=== PATIENT | female | born 1940 | race Caucasian/White ===

== ENCOUNTER 2017-02-05 08:22 | Inpatient (IN) | payer MEDICARE ==
[2017-02-05 09:45] LABS: #Eosinphils 0.3 thou/uL (0.0-0.7); #Lymphocytes 1.8 thou/uL (1.20-3.40); #Monocytes 0.5 thou/uL (0.11-0.59); #Neutrophils 7.5 thou/uL (1.40-6.50); %Basophils 0.4 % (0.0-1.0); %Eosinophils 3.4 % (0.0-10.0); %Lymphocytes 17.7 % (21.0-51.0); %Monocytes 5.2 % (0.0-10.0); Hematocrit 43.3 % (36.0-47.0); Mean Platelet Volume 6.1 fL (7.4-10.4); Red Blood Cell (RBC) Count 4.82 mill/uL (4.20-5.40); White Blood Cell (WBC) Count 10.2 thou/uL (4.8-10.8)
[2017-02-05 09:56] LABS: PTT 40.2 SEC (22.9-36.1); Prothrombin Time 29.3 SEC (12.0-14.7)
[2017-02-05 10:06] LABS: Anion Gap 13 mmol/L (10-20); BUN (Urea Nitrogen) 10 mg/dL (9.8-20.1); Calc. Creatinine Clearance 70 mL/min (70-130); Calcium 9.9 mg/dL (7.8-10.44); Carbon Dioxide 28 mmol/L (23-31); Chloride 101 mmol/L (98-107); Estimated GFR-MDRD 80
[2017-02-05] MEDS ORDERED: Diprivan 0 ML ONE (10:22)
[2017-02-05] MEDS ORDERED: Heparin 10,000 UNITS/1 ML VIAL ONE ×2 (10:40→11:21)
[2017-02-05] MEDS ORDERED: Promethazine HCl 25 MG/ML VIAL ONE (10:56)
[2017-02-05] MEDS ORDERED: Fentanyl 100 MCG/2 ML VIAL ONE (10:56)
[2017-02-05] MEDS ORDERED: Phenylephrine 10 MG/NS 250 ML 250 ML ONE (10:56)
[2017-02-05] MEDS ORDERED: Propofol 200 MG/20 ML VIAL ONE (11:08)
[2017-02-05] MEDS ORDERED: Ondansetron HCl/PF 4 MG/2 ML Vial ONE (11:08)
[2017-02-05] MEDS ORDERED: Dexamethasone 20 MG/5 ML VIAL ONE (11:08)
[2017-02-05] MEDS ORDERED: Protamine Sulfate 50 MG/5 ML VIAL ONE (11:21)
[2017-02-05] MEDS ORDERED: Furosemide 40 MG/4 ML VIAL ONE (11:21)
[2017-02-05] MEDS ORDERED: Midazolam HCl 2 mg/2 ml Vial ONE (11:50)
[2017-02-05] MEDS ORDERED: Isoproterenol 0.2 MG/1 ML AMP ONE (11:52)
[2017-02-05] MEDS ORDERED: Promethazine HCl 25 MG/ML VIAL SLOW IVP PRN (13:26)
[2017-02-05] MEDS ORDERED: Morphine Sulfate 2 MG/ML SYRINGE SLOW IVP PRN (13:26)
[2017-02-05] MEDS ORDERED: Ondansetron HCl/PF 4 MG/2 ML Vial IVP PRN ×2 (13:26→14:24)
[2017-02-05] MEDS ORDERED: Meperidine HCl/PF 25 MG/ML VIAL SLOW IVP PRN (13:26)
[2017-02-05] MEDS ORDERED: Nitroglycerin 0.4 MG TAB (25 Tab Bottle) ONE (13:48)
[2017-02-05] MEDS ORDERED: Amiodarone HCl 450 MG, Admixture Fee 1 EACH in Dextrose 5% in Water 250 ML IVPB SCH ×3 (14:00)
[2017-02-05] MEDS ORDERED: Bisacodyl 10 MG SUPP PR PRN (14:24)
[2017-02-05] MEDS ORDERED: diphenhydrAMINE HCl 25 MG CAP PO PRN (14:24)
[2017-02-05] MEDS ORDERED: Silver Sulfadiazine 1% Cream 50 GM JAR TOP PRN (14:24)
[2017-02-05] MEDS ORDERED: Mag-Al 1200 mg/1200 mg/30 ML UDCUP PO PRN (14:24)
[2017-02-05] MEDS ORDERED: Temazepam 15 MG CAP PO PRN (14:24)
[2017-02-05] MEDS ORDERED: Nitroglycerin 0.4 MG TAB (25 Tab Bottle) SL PRN (14:24)
[2017-02-05] MEDS ORDERED: traMADol HCl 50 MG TAB PO PRN (14:24)
[2017-02-05] MEDS ORDERED: Bisacodyl 5 MG TAB PO PRN (14:24)
[2017-02-05] MEDS ORDERED: HYDROcodone/Acetaminophen 5/325 mg Tablet PO PRN (14:31)
[2017-02-05 16:17] VITALS: BMI 27.8
[2017-02-05] MEDS ORDERED: Warfarin Sodium 2.5 MG TAB PO SCH (17:00)
[2017-02-05] MEDS ORDERED: Ketorolac Tromethamine 30 MG/ML VIAL IVP PRN (17:23)
[2017-02-05] MEDS ORDERED: Acetaminophen/Codeine 30-300mg Tablet PO PRN (17:23)
[2017-02-05] MEDS ORDERED: Dextrose 50% Abboject 50 ML SYRINGE IVP PRN (17:28)
[2017-02-05] MEDS ORDERED: Dextrose 5% in Water 1,000 ML IV PRN (17:28)
[2017-02-05] MEDS: Gabapentin 100 MG CAP PO SCH ×2 (17:39→20:16)
[2017-02-05] MEDS ORDERED: HumaLOG 300 UNITS/3 ML VIAL SC PRN (17:43)
[2017-02-05] MEDS: Sucralfate 1 GM TAB PO SCH ×2 (18:19→20:15)
[2017-02-05] MEDS: Oxybutynin Chloride 5 MG TAB PO SCH (20:16)
[2017-02-05] MEDS: Potassium Chloride 20 MEQ TAB PO SCH (20:16)
[2017-02-05] MEDS: Acetaminophen 325 MG TAB PO PRN (20:20)
[2017-02-05] MEDS ORDERED: Atorvastatin Calcium 10 MG TAB PO SCH (21:00)
[2017-02-05] MEDS ORDERED: Dronedarone HCl 400 MG TAB PO SCH (21:00)
[2017-02-05] MEDS ORDERED: Docusate 100 MG CAP PO SCH (21:00)
--- NOTE | 2017-02-05 22:46 | CCL ---
PROCEDURE: Atrial fibrillation ablation. PREOPERATIVE DIAGNOSIS: Atrial fibrillation. PROCEDURE DETAILS: The patient came to the EP lab in the post-absorptive state. Informed consent w as obtained. A timeout was called. The patient was sedated by a member of the Anesthesia staff. O nce patient adequately sedated, the right and left femoral regions were prepped and draped in usual status sterile fashion. Under ultrasound guidance, access was obtained x2 in the right femoral vein x1 in the left femoral vein x1 in the right internal jugular vein, a 20 pole Duodeca catheter was p laced in the right internal jugular vein and advanced to the coronary sinus for the distal 10 poles for left atrial pacing and recording. A 10 Tamazight intracardiac echo catheter was advanced from the left femoral vein into the right atrium for intraprocedure monitoring and guidance. The two 8 Fren ch sheaths placed in the right femoral vein were exchanged for a long sheaths and transseptal punctu re was then performed after initial bolus of heparin. Transseptal puncture was guided with intracar diac echo in the posterior aspect of the septum. A 10 pole 20 mm circular mapping catheter was advan claudia into the left atrium and a 3-dimensional geometry was made using the [employer] the anatomical mappin g system. Following this, radiofrequency ablation was delivered around the pulmonary veins for isol ation of all four pulmonary veins. In addition to this isolation of the posterior wall with care to ensure that the esophagus location was noted in temperature arises rises were avoided. A total of 36 minutes of radiofrequency was delivered. After this, the patient was cardioverted using a 200 malika le synchronized shock which was biphasic. The patient then received a bolus of isoproterenol and di d not show any arrhythmic events and therefore protamine was given. Catheter was withdrawn. Protami ne was given and the sheaths were removed and hemostasis obtained with manual pressure. The electro physiologic parameters included a cycle length of 738, CT 152, QRS 79, QT 388, AH was 108 and HV was 40 milliseconds. The patient tolerated the procedure well and was discharged from the EP lab in st able condition. COMPLICATIONS: None acute. ESTIMATED BLOOD LOSS: Less than 30 mL PROCEDURE PERFORMED: Pulmonary vein isolation procedure, intracardiac echo, transseptal puncture. 3D electrical anatomical mapping, drug infusion, CS and LA recording, LV pacing and recording and ad ditional ablation for atrial fibrillation. CONCLUSIONS: 1. Persistent atrial fibrillation. 2. Successful radiofrequency ablation for atrial fibrillation. RECOMMENDATIONS: The patient will be at bed rest. She will continue with anticoagulant therapy ind efinitely and follow up with electrophysiology in 6 weeks. We will also initiate Multaq, Carafate a nd Protonix.
[2017-02-06 05:13] LABS: #Lymphocytes 1.7 thou/uL (1.20-3.40); #Monocytes 0.8 thou/uL (0.11-0.59); #Neutrophils 7.1 thou/uL (1.40-6.50); %Basophils 0.2 % (0.0-1.0); %Eosinophils 0.4 % (0.0-10.0); %Lymphocytes 17.1 % (21.0-51.0); %Monocytes 8.2 % (0.0-10.0); Hematocrit 38.8 % (36.0-47.0); Mean Platelet Volume 5.9 fL (7.4-10.4); Prothrombin Time 29.2 SEC (12.0-14.7); White Blood Cell (WBC) Count 9.6 thou/uL (4.8-10.8)
[2017-02-06 05:26] LABS: Anion Gap 13 mmol/L (10-20); BUN (Urea Nitrogen) 16 mg/dL (9.8-20.1); Calc. Creatinine Clearance 69 mL/min (70-130); Calcium 9.5 mg/dL (7.8-10.44); Carbon Dioxide 30 mmol/L (23-31); Chloride 97 mmol/L (98-107); Estimated GFR-MDRD 74
[2017-02-06] MEDS ORDERED: Multivit, Therapeutic 1 TAB PO SCH (09:00)
[2017-02-06] MEDS ORDERED: Furosemide 20 MG TAB PO SCH (09:00)
[2017-02-06] MEDS ORDERED: Vit A,C & E/Lutein/Minerals Tablet PO SCH (09:00)
[2017-02-06] MEDS ORDERED: GARLIC 1000 MG PO SCH (09:00)
[2017-02-06] MEDS ORDERED: Furosemide 40 MG TAB PO SCH (09:00)
[2017-02-06] MEDS: Oxybutynin Chloride 5 MG TAB PO SCH (09:57)
[2017-02-06] MEDS: Gabapentin 100 MG CAP PO SCH ×2 (09:57→15:25)
[2017-02-06] MEDS: Potassium Chloride 20 MEQ TAB PO SCH (09:57)
[2017-02-06] MEDS: Sucralfate 1 GM TAB PO SCH ×2 (09:58→11:47)
[2017-02-06] MEDS: Acetaminophen 325 MG TAB PO PRN (11:47)
[2017-02-06 15:31] VITALS: BP 104/55; TEMP 97.8
--- NOTE | 2017-02-07 10:08 | DIS ---
DATE OF ADMISSION: 02/05/2017 DATE OF DISCHARGE: 02/06/2017 ADMISSION DIAGNOSES: 1. Persistent atrial fibrillation. 2. Status post elective pulmonary venous isolation procedure on 02/05/2017, with Dr. Renate Marks. 3. Postoperative atrial flutter, requiring amiodarone suppression. HOSPITAL COURSE: Ms. Arobleda who admitted after her elective pulmonary venous isolation procedure. S he tolerated the procedure well. No complications were noted. Postprocedure, she developed mild ch est discomforts and also she had developed the atrial flutter with elevated heart rate. Dr. Renate Cano starts her on amiodarone IV which worked well and eventually she is back in sinus rhythm. On occasion, she had some atrial tachycardia with sinus rhythm, but with higher heart rates up t o 110 or so. When she sinus bradycardia. PHYSICAL EXAMINATION: VITAL SIGNS: Subsequently the heart rates are 64, blood pressure 126/58, respiratory rate 18, tempe rature 97.9 degrees Fahrenheit. GENERAL: This is an alert, oriented woman, in no apparent distress. NECK: Supple. Jugular veins not distended. CHEST: Coarse without crackles. CARDIOVASCULAR: Heart sounds are regular with rate and rhythm. No murmur or gallop. ABDOMEN: Benign, bowel sounds are positive. EXTREMITIES: Lower extremities without edema, clubbing or cyanosis. DATABASE: The EKG was reviewed, no significant QT prolongation, reveals resolution of the atrial fl utter, but occasional atrial tach is seen with 1:1 AV conduction rates were 110, resolving sin us rhythm. ASSESSMENT AND PLAN: Ms. Arboleda is a pleasant 76-year-old woman with history of persistent atrial fi brillation for which she underwent a pulmonary venous isolation procedure today. She had residual a trial flutter which was not suppressed with amiodarone. She is completing her IV course. We will s witch her to p.o. taper 200 mg twice a day for the next 2 weeks is recommended, then back to 200 mg a day. She is to continue her blood thinning medication which is warfarin and today her INR is ther apeutic at 2.6. I warned her about the potential interaction with amiodarone and I will ask her to have an INR check in a week. CBC and BMP are all in a good range. Followup requested in 6 weeks or earlier for symptoms. Prescribed Protonix 40 mg daily and Carafate for outpatient use. She is already taking Lasix, which I asked her to double for the next couple o f days and then go back to her usual regimen along with her potassium.
--- NOTE | 2017-02-09 13:18 | EKG ---
Test Reason : PREOP Blood Pressure : / mmHG Vent. Rate : 105 BPM Atrial Rate : 108 BPM P-R Int : 000 ms QRS Dur : 088 ms QT Int : 364 ms P-R-T Axes : 000 041 001 degrees QTc Int : 481 ms Atrial fibrillation with rapid ventricular response with premature ventricular or aberrantly conduct ed complexes Cannot rule out Inferior infarct , age undetermined Abnormal ECG Confirmed by BRENT WHITNEY ([id number]) on 02/09/2017 1:17:45 PM Referred By: PHUONG Confirmed By:BRENT WHITNEY
--- NOTE | 2017-02-09 13:27 | EKG ---
Test Reason : POST ABLATION Blood Pressure : / mmHG Vent. Rate : 079 BPM Atrial Rate : 079 BPM P-R Int : 172 ms QRS Dur : 090 ms QT Int : 426 ms P-R-T Axes : 074 056 037 degrees QTc Int : 488 ms Sinus rhythm with Premature atrial complexes Low voltage QRS Prolonged QT Abnormal ECG Confirmed by BRENT WHITNEY ([id number]) on 02/09/2017 1:26:59 PM Referred By: PHUONG Confirmed By:BRENT WHITNEY
--- NOTE | 2017-02-09 15:54 | EKG ---
Test Reason : Blood Pressure : / mmHG Vent. Rate : 064 BPM Atrial Rate : 064 BPM P-R Int : 200 ms QRS Dur : 088 ms QT Int : 478 ms P-R-T Axes : 081 037 042 degrees QTc Int : 493 ms Normal sinus rhythm Low voltage QRS Prolonged QT Abnormal ECG Confirmed by BRENT WHITNEY ([id number]) on 02/09/2017 3:54:09 PM Referred By: PHUONG Confirmed By:BRENT WHITNEY
--- OUTSIDE RECORDS SUMMARY | 2017-02-10 13:05 | XMS | Clinical Summary ---
:1940 Author Organization [facility] Address [address] [place] [address] Phone Care Team Providers Name Role Phone , Primary Care Provider Unavailable Allergies Not on File Current Medications Not on file Active Problems Not on file Social History Tobacco Use Types Packs/Day Years Used Date Never Assessed Sex Assigned at Date Recorded Not on file Last Filed Vital Signs Not on file Plan of Treatment Not on file Results Not on filefrom Last 3 Months
== END 2017-02-06 16:41 | disposition home or self-care (01) | DRG 274 ==
LOC: CCL 08:22 → 2NO 13:40
PROVIDERS: ADMIT Specialist; ATTEND Specialist
PROC: 02583ZZ Destruction of Conduction Mechanism, Percutaneous Approach (ICD-10-PCS; principal; 2017-02-05)
PROC: 4A023FZ Measurement of Cardiac Rhythm, Percutaneous Approach (ICD-10-PCS; 2017-02-05)
PROC: 4A0234Z Measurement of Cardiac Electrical Activity, Percutaneous Approach (ICD-10-PCS; 2017-02-05)
PROC: 02K83ZZ Map Conduction Mechanism, Percutaneous Approach (ICD-10-PCS; 2017-02-05)
PROC: B24BZZZ Ultrasonography of Heart with Aorta (ICD-10-PCS; 2017-02-05)
DX: I48.1 Persistent atrial fibrillation (principal); E11.9 Type 2 diabetes mellitus without complications; K21.9 Gastro-esophageal reflux disease without esophagitis; Z86.73 Personal history of transient ischemic attack (TIA), and cerebral infarction without residual deficits; I48.92 Unspecified atrial flutter; Z79.01 Long term (current) use of anticoagulants
CPT/HCPCS: 36415; 36416; 76942; 80048; 85025; 85347; 85610; 85730; 92960; 93005; 93010; 93613; 93622; 93623; 93656; 93657; 93662; C1731; C1759; C1769; J0282; J1100; J1644; J1940; J2250; J2405; J2550; J2704; J2720; J3010; J7070

== ENCOUNTER 2017-03-20 12:08 | Inpatient (IN) | payer MEDICARE ==
[2017-03-20 12:34] LABS: #Eosinphils 0.2 thou/uL (0.0-0.7); #Lymphocytes 1.4 thou/uL (1.20-3.40); #Monocytes 0.5 thou/uL (0.11-0.59); #Neutrophils 7.3 thou/uL (1.40-6.50); %Basophils 0.3 % (0.0-1.0); %Eosinophils 2.3 % (0.0-10.0); %Lymphocytes 15.1 % (21.0-51.0); %Monocytes 5.5 % (0.0-10.0); Mean Platelet Volume 6.1 fL (7.4-10.4); Red Blood Cell (RBC) Count 4.06 mill/uL (4.20-5.40); White Blood Cell (WBC) Count 9.6 thou/uL (4.8-10.8)
[2017-03-20 12:51] LABS: ALT (SGPT) 8 U/L (8-55); AST (SGOT) 13 U/L (5-34); Alkaline Phosphatase 97 U/L (40-150); Anion Gap 11 mmol/L (10-20); BUN (Urea Nitrogen) 11 mg/dL (9.8-20.1); Bilirubin, Total 0.6 mg/dL (0.2-1.2); Calc. Creatinine Clearance 0 mL/min (70-130); Calcium 9.2 mg/dL (7.8-10.44); Carbon Dioxide 28 mmol/L (23-31); Chloride 106 mmol/L (98-107); Estimated GFR-MDRD 80; Globulin 3.2 g/dL (2.4-3.5); Protein, Total 6.6 g/dL (6.0-8.3)
[2017-03-20] MEDS ORDERED: Furosemide 40 MG/4 ML VIAL ONE (13:26)
[2017-03-20] MEDS ORDERED: Furosemide 20 MG/2 ML VIAL ONE (13:27)
--- NOTE | 2017-03-20 14:15 | RAD ---
CHEST ONE VIEW: History: Dyspnea. Comparison: 11-19-14 FINDINGS: Heart size is enlarged. There mild pulmonary venous congestion and early edema. Bronchiectasis is not ed in the right middle lobe and lingula. Small effusions. Coronary device is present. IMPRESSION: 1. Cardiomegaly with small effusions and early edema. POS: FLORENTIN
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
[2017-03-20] MEDS: Gabapentin 100 MG CAP PO SCH (20:48)
[2017-03-20] MEDS: Amiodarone 200 MG TAB PO SCH (20:48)
[2017-03-20] MEDS: Docusate 100 MG CAP PO SCH (20:48)
[2017-03-20] MEDS: Oxybutynin 5 MG TAB PO SCH (20:49)
[2017-03-20] MEDS ORDERED: Pravastatin Sodium 40 MG TAB PO SCH (21:00)
[2017-03-20] MEDS: HYDROcodone/Acetaminophen 5/325 mg Tablet PO PRN (22:25)
[2017-03-21] MEDS: Furosemide 40 MG/4 ML VIAL SLOW IVP SCH ×2 (06:08→13:45)
[2017-03-21 06:11] LABS: Anion Gap 10 mmol/L (10-20); BUN (Urea Nitrogen) 11 mg/dL (9.8-20.1); Calc. Creatinine Clearance 65 mL/min (70-130); Calcium 8.8 mg/dL (7.8-10.44); Carbon Dioxide 34 mmol/L (23-31); Chloride 100 mmol/L (98-107); Estimated GFR-MDRD 74
[2017-03-21] MEDS: HYDROcodone/Acetaminophen 5/325 mg Tablet PO PRN (06:17)
[2017-03-21] MEDS: Mirtazapine 15 MG TAB PO SCH (08:49)
[2017-03-21] MEDS: Gabapentin 100 MG CAP PO SCH ×3 (08:49→21:14)
[2017-03-21] MEDS: metFORMIN 500 MG TAB PO SCH (08:49)
[2017-03-21] MEDS: Vit A,C & E/Lutein/Minerals Tablet PO SCH (08:49)
[2017-03-21] MEDS: Oxybutynin 5 MG TAB PO SCH ×2 (08:49→21:14)
[2017-03-21] MEDS: Aspirin 81 mg Enteric Coated Tablet PO SCH (08:49)
[2017-03-21] MEDS: Amitriptyline HCl 25 MG TAB PO SCH (08:49)
[2017-03-21] MEDS: Docusate 100 MG CAP PO SCH ×2 (08:51→21:14)
[2017-03-21] MEDS ORDERED: Enoxaparin Sodium 40 MG/0.4 ML SYRINGE SC SCH (09:00)
--- NOTE | 2017-03-21 11:09 | CON ---
DATE OF CONSULTATION: 03/21/2017 REASON FOR CONSULTATION: Abnormal EKG, shortness of breath. PRIMARY PROVIDER: Camilo Oden M.D. SUBJECTIVE: Ms. Arboleda is a very pleasant 76-year-old woman who I have seen and evaluated in the [facility]. She recently underwent atrial fibrillation ablation. She also recently underwent cardioversion. She is currently on amiodarone therapy. Recently, she developed shortness of breath. No chest pain or pressure noted. She also had some erica phoresis. No other ameliorating, exacerbating, or precipitating factors present. Patient did undergo coronary angiography in 2012. She was found to have normal left main, LAD, circu mflex artery, 5%-10% stenosis of the proximal right coronary artery, LVEF at that time was 60%. PAST MEDICAL HISTORY: Mild CAD, diastolic heart failure, diabetes mellitus, hypertension, hyperlipid emia, depression, anxiety, TIA, macular degeneration. SURGICAL HISTORY: Knee surgery, hip surgery, cataract removal, appendectomy, cholecystectomy, hyster ectomy, pulmonary vein ablation. REVIEW OF SYSTEMS: Ten point review of systems reviewed and as above, otherwise negative. CURRENT MEDICATIONS: Have been reviewed. PHYSICAL EXAMINATION: GENERAL: Patient is a pleasant female who is in no acute distress. The patient appears her stated a ge. VITAL SIGNS: Blood pressure 120/66 and respirations 20. NEUROLOGIC: The patient is alert and oriented times 3 with no focal neurologic deficits. HEENT: Sclerae without icterus. Mouth has moist mucous membranes with normal pallor. NECK: No JVD. Carotid upstroke brisk. No bruits bilaterally. LUNGS: Clear to auscultation with unlabored respirations. BACK: No scoliosis or kyphosis. CARDIAC: Regular rate and rhythm with normal S1 and S2. No S3 or S4 noted. No significant rubs, mu rmurs, thrills, or gallops noted throughout the precordium. PMI is not displaced. There is no ronald ternal heave. ABDOMEN: Soft, nontender, nondistended. No peritoneal signs present. No hepatosplenomegaly. No ab normal striae. EXTREMITIES: 2+ femoral and 2+ dorsalis pedis pulses. No cyanosis, clubbing, or edema. SKIN: No gross abnormalities. IMAGING: EKG shows normal sinus rhythm with ST-T wave changes suggesting ischemia. When compared to previous EKG on January, these findings appeared new. CK and troponin negative. IMPRESSION: 1. Shortness of breath. 2. Abnormal electrocardiogram. RECOMMENDATIONS: Ms. Arboleda's EKG appears new when compared to January. Her EKG does suggest ischemi a. At this point, recommend coronary angiography, possible PCI. I discussed the procedure in full d etail with Ms. Arboleda. Risks included but not limited to the following: , stroke, IA, need for emergency surgery, loss of limb, bleeding, and infection, as well as a reaction to the dye causing ki dney failure and needing long-term dialysis. Other risks include acute stent thrombosis and restenosi s, vessel dissection, perforation, need for emergency surgery in addition to distal embolization caus ing chronic foot discomfort as well as amputation. All questions were answered. She is going to hav e Coumadin therapy, still prefer bare metal stent if needed. Further recommendations depending the may dodd.
[2017-03-21 11:15] LABS: Prothrombin Time 21.1 SEC (12.0-14.7)
[2017-03-21] MEDS: Potassium Chloride 20 MEQ TAB PO SCH ×3 (11:47→21:13)
[2017-03-21] MEDS ORDERED: HumaLOG 300 UNITS/3 ML VIAL SC PRN (13:38)
[2017-03-21] MEDS ORDERED: Dextrose 50% Abboject 50 ML SYRINGE SLOW IVP PRN (13:38)
[2017-03-21] MEDS ORDERED: Dextrose 5% in Water 1,000 ML IV PRN (13:38)
[2017-03-21] MEDS: HYDROcodone/Acetaminophen 10/325 mg Tablet PO PRN ×2 (13:45→21:19)
[2017-03-21 13:59] LABS: Troponin I 0.016 ng/mL (< 0.028)
[2017-03-21] MEDS ORDERED: Warfarin Sodium 5 MG TAB PO SCH (17:00)
[2017-03-21 17:56] LABS: Troponin I 0.015 ng/mL (< 0.028)
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
[2017-03-21] MEDS: Atorvastatin Calcium 10 MG TAB PO SCH (21:14)
[2017-03-21] MEDS: Amiodarone 200 MG TAB PO SCH (21:14)
[2017-03-21] MEDS: Enoxaparin Sodium 80 MG/0.8 ML SYRINGE SC SCH (21:19)
[2017-03-22 06:00] LABS: Hematocrit 34.7 % (36.0-47.0)
[2017-03-22 06:06] LABS: PTT 56.8 SEC (22.9-36.1); Prothrombin Time 19.4 SEC (12.0-14.7)
[2017-03-22] MEDS: Furosemide 40 MG/4 ML VIAL SLOW IVP SCH ×2 (06:45→14:52)
[2017-03-22 07:46] LABS: Anion Gap 10 mmol/L (10-20); BUN (Urea Nitrogen) 10 mg/dL (9.8-20.1); Calc. Creatinine Clearance 67 mL/min (70-130); Carbon Dioxide 33 mmol/L (23-31); Chloride 98 mmol/L (98-107); Estimated GFR-MDRD 76
[2017-03-22] MEDS: Potassium Chloride 20 MEQ TAB PO SCH ×2 (08:57→20:32)
[2017-03-22] MEDS: metFORMIN 500 MG TAB PO SCH (08:57)
[2017-03-22] MEDS: Oxybutynin 5 MG TAB PO SCH ×2 (08:57→20:33)
[2017-03-22] MEDS: Vit A,C & E/Lutein/Minerals Tablet PO SCH (08:58)
[2017-03-22] MEDS: Amitriptyline HCl 25 MG TAB PO SCH (08:58)
[2017-03-22] MEDS: Mirtazapine 15 MG TAB PO SCH (08:58)
[2017-03-22] MEDS: Docusate 100 MG CAP PO SCH ×2 (08:58→20:33)
[2017-03-22] MEDS: Aspirin 81 mg Enteric Coated Tablet PO SCH (08:59)
[2017-03-22] MEDS: Enoxaparin Sodium 80 MG/0.8 ML SYRINGE SC SCH ×2 (08:59→20:34)
[2017-03-22] MEDS: Gabapentin 100 MG CAP PO SCH ×3 (08:59→20:33)
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
[2017-03-22] MEDS: HYDROcodone/Acetaminophen 10/325 mg Tablet PO PRN (15:51)
[2017-03-22] MEDS ORDERED: Communication Order-Pharmacy FS SCH (17:45)
[2017-03-22] MEDS: Atorvastatin Calcium 10 MG TAB PO SCH (20:32)
[2017-03-22] MEDS: HYDROcodone/Acetaminophen 5/325 mg Tablet PO PRN (20:32)
[2017-03-22] MEDS: Amiodarone 200 MG TAB PO SCH (20:33)
[2017-03-23 05:33] LABS: Prothrombin Time 16.7 SEC (12.0-14.7)
[2017-03-23 05:34] LABS: PTT 47.5 SEC (22.9-36.1)
[2017-03-23] MEDS: Gabapentin 100 MG CAP PO SCH ×2 (05:37→14:21)
[2017-03-23] MEDS: Mirtazapine 15 MG TAB PO SCH (05:37)
[2017-03-23] MEDS: Furosemide 40 MG/4 ML VIAL SLOW IVP SCH ×2 (05:37→14:21)
[2017-03-23] MEDS: Potassium Chloride 20 MEQ TAB PO SCH (05:37)
[2017-03-23] MEDS: Oxybutynin 5 MG TAB PO SCH (05:37)
[2017-03-23] MEDS: Amitriptyline HCl 25 MG TAB PO SCH (05:37)
[2017-03-23] MEDS: Vit A,C & E/Lutein/Minerals Tablet PO SCH (05:38)
[2017-03-23] MEDS: Sodium Chloride 0.9% 1,000 ML IV SCH ×6 (05:38→17:44)
[2017-03-23 06:20] VITALS: BMI 25.9
[2017-03-23] MEDS ORDERED: Heparin 1000 UNIT/NS 500ML(OR) 1,000 ML ONE (07:48)
[2017-03-23] MEDS: metFORMIN 500 MG TAB PO SCH (08:00)
[2017-03-23] MEDS: Aspirin 81 mg Enteric Coated Tablet PO SCH (08:00)
[2017-03-23] MEDS ORDERED: Midazolam HCl 2 mg/2 ml Vial ONE (08:00)
[2017-03-23] MEDS ORDERED: Fentanyl 100 MCG/2 ML VIAL ONE (08:00)
[2017-03-23] MEDS: Docusate 100 MG CAP PO SCH (08:02)
[2017-03-23] MEDS ORDERED: Acetaminophen/Codeine 30-300mg Tablet PO PRN ×2 (08:22)
[2017-03-23] MEDS ORDERED: Nitroglycerin 0.4 MG TAB (25 Tab Bottle) SL PRN (08:22)
[2017-03-23] MEDS ORDERED: traMADol HCl 50 MG TAB PO PRN (08:22)
[2017-03-23] MEDS ORDERED: Sodium Chloride 0.9% 200 ML IV SCH (08:30)
[2017-03-23 13:10] VITALS: TEMP 98
[2017-03-23] MEDS: HYDROcodone/Acetaminophen 10/325 mg Tablet PO PRN (14:20)
[2017-03-23] MEDS ORDERED: Iopamidol 370 76% 100 ML VIAL ONE (14:22)
[2017-03-23 16:05] VITALS: BP 143/67
[2017-03-23] MEDS ORDERED: Warfarin Sodium 2.5 MG TAB PO SCH (17:00)
--- NOTE | 2017-03-24 05:04 | DIS ---
DATE OF ADMISSION: 03/20/2017 DATE OF DISCHARGE: 03/23/2017 DISCHARGE DIAGNOSES: 1. Dyspnea, unclear etiology, resolved. 2. Question of diastolic heart failure with preserved ejection fraction of 50%-55%. 3. Moderate mitral valve regurgitation. 4. Moderate tricuspid valve regurgitation. 5. Coronary artery disease, minimal medical management. 6. History of atrial fibrillation, status post pulmonary vein isolation ablation with current sinus mechanism. 7. Chronic anticoagulation with Coumadin. 8. Diabetes mellitus type 2, controlled. 9. Hypertension, stable. 10. Hypokalemia, mild. 11. Chronic normocytic anemia. CONSULTATIONS: Dr. Greenberg with Cardiology Service. PERTINENT LABORATORY AND X-RAY FINDINGS: Potassium ranged between 3.3-4.2. Troponin I ranged betwee n 0.015-0.030. BNP 820. CBC showed hemoglobin ranging between 11.2-11.9. INR ranged between 1.3-1. 8 with discharge INR of 1.3 on 03/23/2017. Portable chest x-ray dated 03/20/2017, showed small peric ardial effusions with mild edema. Left heart cardiac catheterization dated 03/20/2017 showed minimal coronary artery disease, medical management recommended. A 2D transthoracic echocardiogram dated , showed ejection fraction of 50%-55%. Moderate left atrial enlargement. Moderate mitral an d tricuspid valve regurgitation. HOSPITAL COURSE: Patient was admitted to the telemetry unit after initially presenting with shortnes s of breath and palpitations. The patient with prior history of atrial fibrillation, status post pul monary vein isolation/ablation on 02/05/2017. Telemetry monitoring showed sinus mechanism with sinus bradycardia without evidence of acute arrhythmia or dysrhythmia. The patient was evaluated by the C ardiology service after elevated BNP noted as well as mild troponin I elevation. The patient underwe nt cardiac catheterization showing minimal coronary artery disease with medical management recommende d. The patient did receive IV Lasix throughout the hospital course with approximate 3-pound weight l oss during the hospital course. A 2D transthoracic echocardiogram did show preserved ejection fracti on of 50%-55% likely a diastolic component in conjunction with valvular dysfunction as noted on the e xam. Overall, the patient remained clinically stable through the remainder of the hospital course an d ready for discharge on 03/23/2017. DISCHARGE MEDICATIONS: 1. Amiodarone 200 mg 1 tab p.o. at bedtime. 2. Elavil 50 mg p.o. at bedtime. 3. Enteric-coated aspirin 81 mg 1 tab p.o. daily. 4. Vitamin D3 of 1000 units p.o. daily. 5. Lasix 20 mg p.o. q.a.m. 6. Gabapentin 100 mg p.o. t.i.d. 7. Sharon 10/325 mg 1 tab p.o. q.6 hours p.r.n. pain. 8. Metformin 1000 mg p.o. q.a.m. 9. Metoprolol succinate 25 mg p.o. at bedtime. 10. Remeron 15 mg p.o. at bedtime. 11. Oxybutynin 5 mg 1 tab p.o. b.i.d. 12. Protonix 40 mg 1 tab p.o. daily. 13. Klor-Con 20 mEq p.o. b.i.d. 14. Pravachol 40 mg p.o. at bedtime. 15. Sertraline 100 mg p.o. q.a.m. 16. Multivitamin 1 tab p.o. daily. 17. Coumadin 2.5 mg p.o. on Thursday and . Goal INR of 2-3. FOLLOWUP: The patient may follow up with her primary care provider, Linda Arboleda within 7 days of d ischarge. CONDITION ON DISCHARGE: Fair. ACTIVITY: Ad gisela. DIET: Heart healthy and ADA. SPECIAL INSTRUCTIONS: Recommend PT/INR within 48 hours of discharge. Goal INR of 2-3. CODE STATUS: FULL. DISPOSITION: Home on 03/23/2017.
--- NOTE | 2017-04-17 13:26 | EKG ---
Test Reason : PALPATATIONS Blood Pressure : / mmHG Vent. Rate : 068 BPM Atrial Rate : 068 BPM P-R Int : 174 ms QRS Dur : 096 ms QT Int : 510 ms P-R-T Axes : 058 076 248 degrees QTc Int : 542 ms Sinus rhythm with occasional Premature ventricular complexes Low voltage QRS Prolonged QT Abnormal ECG Confirmed by DAVIDE KEBEDE ([id number]), makeup editor WILMER GARVEY ([id number]) on 04/17/2017 1:26:02 PM Referred By: Confirmed By:DAVIDE KEBEDE
== END 2017-03-23 20:25 | disposition home or self-care (01) | DRG 287 ==
LOC: ERS 12:08 → 2NO 15:22
PROVIDERS: ADMIT Internal Medicine; ATTEND Internal Medicine
PROC: 4A023N7 Measurement of Cardiac Sampling and Pressure, Left Heart, Percutaneous Approach (ICD-10-PCS; principal; 2017-03-23)
PROC: B2111ZZ Fluoroscopy of Multiple Coronary Arteries using Low Osmolar Contrast (ICD-10-PCS; 2017-03-23)
PROC: B2151ZZ Fluoroscopy of Left Heart using Low Osmolar Contrast (ICD-10-PCS; 2017-03-23)
DX: I11.0 Hypertensive heart disease with heart failure (principal); I48.91 Unspecified atrial fibrillation; D64.9 Anemia, unspecified; I08.1 Rheumatic disorders of both mitral and tricuspid valves; I50.33 Acute on chronic diastolic (congestive) heart failure; E78.5 Hyperlipidemia, unspecified; I25.10 Atherosclerotic heart disease of native coronary artery without angina pectoris; E87.6 Hypokalemia; F32.9 Major depressive disorder, single episode, unspecified; F41.9 Anxiety disorder, unspecified; Z86.73 Personal history of transient ischemic attack (TIA), and cerebral infarction without residual deficits; Z79.01 Long term (current) use of anticoagulants; Z88.1 Allergy status to other antibiotic agents; Z88.0 Allergy status to penicillin; Z88.2 Allergy status to sulfonamides; Z96.641 Presence of right artificial hip joint; Z96.651 Presence of right artificial knee joint; Z83.3 Family history of diabetes mellitus; Z82.49 Family history of ischemic heart disease and other diseases of the circulatory system
CPT/HCPCS: 36415; 36416; 71010; 76942; 80048; 80053; 82553; 82565; 83880; 84484; 85014; 85018; 85025; 85049; 85610; 85730; 93005; 93306; 93458; 93798; 94760; 96374; 99152; C1769; J1644; J1650; J1940; J2250; J3010

== ENCOUNTER 2017-05-08 12:45 | Outpatient (CLI) | payer MEDICARE ==
--- NOTE | 2017-05-08 13:30 | RAD ---
PA AND LATERAL CHEST X-RAY: 05/08/2017 HISTORY: Dyspnea. COMPARISON: 03/20/2017 FINDINGS: There are increased interstitial markings seen throughout the lungs bilaterally, which have increased from the prior study. Findings may be related to either pulmonary edema or an infectious process whitaker perimposed on chronic lung changes. The cardiac silhouette is mildly enlarged. Vascular calcificati on is seen in the thoracic aorta. A loop recorder again overlies the lower mediastinum/upper abdomen , in the subcutaneous soft tissues. There is a minimal compression fracture of the L1 vertebral body of indeterminate age, but this was not present on the study of 2014. There is mild exaggerated kyph osis at this level. Degenerative changes are seen in the upper lumbar spine. Vascular calcification is seen in the thoracic as well as abdominal aorta. Surgical clips overly the right upper quadrant. IMPRESSION: 1. Scattered increased interstitial densities bilaterally, which have increased when compared to vargas or exam. Findings may be related to either pulmonary edema or an infectious process superimposed on chronic lung changes. 2. Mild cardiomegaly. 3. Vascular calcifications. 4. Compression fracture of the L1 vertebral body of indeterminate age. POS: MAGALYS
== END 2017-05-08 12:46 | disposition home or self-care (01) ==
LOC: RAD 12:45
PROVIDERS: ATTEND Internal Medicine
DX: R06.00 Dyspnea, unspecified (principal); I51.7 Cardiomegaly; S32.019A Unspecified fracture of first lumbar vertebra, initial encounter for closed fracture; J98.4 Other disorders of lung
CPT/HCPCS: 71046

== ENCOUNTER 2017-07-07 13:51 | Inpatient (IN) | payer MEDICARE ==
[2017-07-07 14:49] LABS: #Basophils 0.1 thou/uL (0.0-0.2); #Eosinphils 0.2 thou/uL (0.0-0.7); #Lymphocytes 0.7 thou/uL (1.20-3.40); #Monocytes 0.5 thou/uL (0.11-0.59); #Neutrophils 9.2 thou/uL (1.40-6.50); %Basophils 0.9 % (0.0-1.0); %Eosinophils 1.7 % (0.0-10.0); %Lymphocytes 6.5 % (21.0-51.0); %Monocytes 4.9 % (0.0-10.0); Hemoglobin 10.5 g/dL (12.0-16.0); Mean Corpuscular HGB CONC 32.5 g/dL (32.0-36.0); Mean Corpuscular Hemoglobin 29.4 pg (27.0-31.0); Mean Corpuscular Volume 90.4 fl (81.0-99.0); Mean Platelet Volume 6.5 fL (7.4-10.4); Platelet Count 303 thou/uL (130-400); RBC Distribution Width 13.2 % (11.5-14.5); Red Blood Cell (RBC) Count 3.57 mill/uL (4.20-5.40); White Blood Cell (WBC) Count 10.7 thou/uL (4.8-10.8)
[2017-07-07 14:57] LABS: Prothrombin Time 47.9 SEC (12.0-14.7)
[2017-07-07 14:58] LABS: PTT 94.4 SEC (22.9-36.1)
[2017-07-07 15:03] LABS: INR-International Normal Ratio 4.8
[2017-07-07 15:10] LABS: ALT (SGPT) Less than 7 U/L (8-55); AST (SGOT) 13 U/L (5-34); Albumin 3.7 g/dL (3.4-4.8); Alkaline Phosphatase 91 U/L (40-150); Anion Gap 12 mmol/L (10-20); BUN (Urea Nitrogen) 9 mg/dL (9.8-20.1); Bilirubin, Total 0.6 mg/dL (0.2-1.2); Calc. Creatinine Clearance 0 mL/min (70-130); Calcium 9.3 mg/dL (7.8-10.44); Carbon Dioxide 32 mmol/L (23-31); Chloride 98 mmol/L (98-107); Estimated GFR-MDRD 82; Globulin 3.7 g/dL (2.4-3.5); Glucose 118 mg/dL (83-110); Potassium 4.2 mmol/L (3.5-5.1); Protein, Total 7.4 g/dL (6.0-8.3); Sodium 138 mmol/L (136-145)
[2017-07-07 15:14] LABS: CKMB 0.7 ng/mL (0-6.6); Troponin I Less than 0.010 ng/mL (< 0.028)
--- NOTE | 2017-07-07 15:15 | RAD ---
PORTABLE AP CHEST: Date: 07/07/17 HISTORY: Shortness of breath that started last night. Shortness of breath has been getting progressively worse . COMPARISON: 05/08/17. FINDINGS: Cardiac silhouette is magnified by projection, but is enlarged. Increased interstitial densities are again seen throughout the lungs bilaterally with slightly greater interstitial and patchy density now present in the mid lung zones bilaterally, as well as at the right lung base. Findings may be relate d to either worsening asymmetric pulmonary edema or infectious process superimposed on chronic lung c hanges. Vascular calcifications seen in thoracic aorta. No other interval change. IMPRESSION: Diffuse increased interstitial opacities bilaterally with slightly greater interstitial and patchy de nsities in the mid lung armstrong and at the right lung base. Findings could be related to chronic lung changes with superimposed asymmetric pulmonary edema or infectious process. Follow-up to resolution i s recommended. POS: MAGALYS
[2017-07-07 15:41] LABS: Bilirubin Negative (Negative); Blood, Urine Trace (Negative); Clarity CLEAR (Clear); Glucose, Urine (Dipstick) Negative (Negative); Leukocyte Moderate (Negative); Nitrite Negative (Negative); Protein, Urine (Dipstick) Negative (Neg-Trace); Specific Gravity, Urine 1.012 (1.002-1.036)
[2017-07-07 15:50] LABS: Bacteria/HPF None Seen HPF (None Seen); Hyaline Casts/LPF 0-3 HYALINE CAST LPF (0-3 Hyaline); Squamous Epithelial 0-3 HPF (0-3); WBC/HPF 21-50 HPF (0-3)
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
[2017-07-07 16:26] LABS: Troponin I Less than 0.010 ng/mL (< 0.028)
[2017-07-07] MEDS ORDERED: cefTRIAXone\\ROCEPHIN 1 GM in Sodium Chloride 0.9% 100 ML IVPB SCH (17:15)
[2017-07-07] MEDS ORDERED: Lisinopril 10 MG TAB PO SCH (17:15)
[2017-07-07] MEDS: cefTRIAXone\\ROCEPHIN 1 GM, Syringe 0.4 ML in Sterile Water 9.6 ML SLOW IVP SCH (18:56)
--- NOTE | 2017-07-07 19:38 | ULT ---
ULTRASOUND RETROPERITONEUM COMPLETE: (RENAL) 07/17/17 HISTORY: 76-year-old female with pyelonephritis. FINDINGS: The right kidney measures 10 x 4.5 x 4.5 cm. The left kidney measures 10 x 5.5 x 4.5 cm. Both kidne ys have normal cortical thickness and normal cortical echogenicity. There is no hydronephrosis. The re is a 2.5 x 2 x 1.5 cm cystic lesion with irregular margins at the left renal mid-lower pole, sligh tly inferior to a column of Mk. There is a Morrow catheter in an empty urinary bladder. IMPRESSION: 1) No hydronephrosis. 2) Cystic left renal lesion. 3) Morrow catheter within empty bladder. haylee [] POS: MAGALYS
[2017-07-07 20:00] LABS: Troponin I Less than 0.010 ng/mL (< 0.028)
[2017-07-07] MEDS: Pravastatin Sodium 40 MG TAB PO SCH (20:10)
[2017-07-07] MEDS: Oxybutynin 5 MG TAB PO SCH (20:10)
[2017-07-07] MEDS: Docusate 100 MG CAP PO SCH (20:10)
[2017-07-07] MEDS: Gabapentin 100 MG CAP PO SCH (20:10)
[2017-07-07] MEDS ORDERED: Non-Formulary Item 1 EACH (Amitriptyline Hcl [Elavil] 50 MG) PO SCH (21:00)
[2017-07-07] MEDS: HYDROcodone/Acetaminophen 10/325 mg Tablet PO PRN (21:31)
[2017-07-08] MEDS: Furosemide 40 MG/4 ML VIAL SLOW IVP SCH ×2 (05:17→16:32)
[2017-07-08 06:02] LABS: Hemoglobin 9.8 g/dL (12.0-16.0); Mean Corpuscular Hemoglobin 28.7 pg (27.0-31.0); Mean Corpuscular Volume 92.8 fl (81.0-99.0); Platelet Count 297 thou/uL (130-400); RBC Distribution Width 13.2 % (11.5-14.5); Red Blood Cell (RBC) Count 3.39 mill/uL (4.20-5.40); White Blood Cell (WBC) Count 8.1 thou/uL (4.8-10.8)
[2017-07-08 06:07] LABS: Prothrombin Time 47.7 SEC (12.0-14.7)
[2017-07-08 06:08] LABS: Anion Gap 15 mmol/L (10-20); BUN (Urea Nitrogen) 10 mg/dL (9.8-20.1); Calc. Creatinine Clearance 73 mL/min (70-130); Calcium 9.1 mg/dL (7.8-10.44); Carbon Dioxide 25 mmol/L (23-31); Chloride 101 mmol/L (98-107); Estimated GFR-MDRD Greater than 90; Glucose 89 mg/dL (83-110); Potassium 4.1 mmol/L (3.5-5.1); Sodium 137 mmol/L (136-145)
[2017-07-08 06:09] LABS: INR-International Normal Ratio 4.8
[2017-07-08] MEDS: Aspirin 81 mg Enteric Coated Tablet PO SCH (08:08)
[2017-07-08] MEDS: metFORMIN 500 MG TAB PO SCH (08:08)
[2017-07-08] MEDS: Gabapentin 100 MG CAP PO SCH ×3 (08:09→20:03)
[2017-07-08] MEDS: Docusate 100 MG CAP PO SCH ×2 (08:09→20:01)
[2017-07-08] MEDS: Oxybutynin 5 MG TAB PO SCH ×2 (08:10→20:03)
[2017-07-08] MEDS ORDERED: Prevnar 13-Val Conj/PF 0.5 ML SYRINGE IM ONE (09:00)
[2017-07-08] MEDS: Multivit, Chewable SF 1 TAB PO SCH (10:16)
[2017-07-08] MEDS: HYDROcodone/Acetaminophen 10/325 mg Tablet PO PRN ×2 (12:38→20:01)
--- NOTE | 2017-07-08 16:59 | PDOC.PN ---
- Subjective Encounter Start Date: 07/08/17 Encounter Start Time: 16:57 CC: DYSPNEA SUB: Pt says she feels better - Objective Resuscitation Status: Resuscitation Status FULL:Full Resuscitation Vital Signs & Weight: Vital Signs (12 hours) Temp Pulse Pulse Pulse Resp BP BP 07/08/17 15:05 98.1 F 64 18 07/08/17 12:35 98.6 F 55 L 18 07/08/17 09:12 61 66 116/56 L 136/68 07/08/17 08:05 98.2 F 52 L 16 BP Pulse Ox Pulse Ox Pulse Ox Pulse Ox 07/08/17 15:05 107/56 L 95 07/08/17 12:35 112/56 L 97 07/08/17 09:12 91 L 93 L 78 L 07/08/17 08:05 108/53 L 98 Weight Weight 136 lb I&O: 07/07/17 07/08/17 07/09/17 06:59 06:59 06:59 Intake Total 720 Output Total 400 Balance 320 Result Diagrams: 07/08/17 05:27 07/08/17 05:27 Additional Labs: Accuchecks 07/08/17 07/07/17 10:20 21:09 POC Glucose 222 H 151 H Phys Exam - Physical Examination Constitutional: NAD HEENT: moist MMs Neck: no JVD diminished at bases, positive crackles, no rhonchi Cardiovascular: RRR, no significant murmur, no rub Gastrointestinal: soft, non-tender no guarding, no rebound tendernes Musculoskeletal: no edema Neurological: non-focal Psychiatric: normal affect, A&O x 3 Skin: no rash Dx/Plan - Plan Pt is 76 yrs old female 1. Acute hypoxic respiratory failure - likely secondary to CHF exacerbation. IV diuresis, strict I/Os, daily weights low sodium diet. Last echo showed EF 50-55% 2. exacerbation of HF with preserved EF - see above 3. Pyelonephritis - IV antibiotics. 4. Supratherapeutic INR - hold warfarin. Repeat PT/INR tomorrow. 5. Normocytic anemia - consider iron studies 6. CAD - medical management 7. Hypertension - restart home antihypertensives 8. Diabetes mellitus - restart home medications. 9. Hx of TIA 10. Hx of afib s/p ablation, on long-term anticoagulation Plan: plan to decrease lasix dose to 40mg daily monitor bp closely inr still elevated. will check inr in am, hold coumadin today will start insulin sliding scale. monitor blood sugars closely continue bp meds cardio consulted case d/w pt & RN
[2017-07-08] MEDS ORDERED: HumaLOG 300 UNITS/3 ML VIAL SC PRN ×2 (17:03)
[2017-07-08] MEDS ORDERED: Dextrose 50% Abboject 50 ML SYRINGE SLOW IVP PRN (17:03)
[2017-07-08] MEDS ORDERED: Dextrose 5% in Water 1,000 ML IV PRN (17:03)
[2017-07-08] MEDS: cefTRIAXone\\ROCEPHIN 1 GM, Syringe 0.4 ML in Sterile Water 9.6 ML SLOW IVP SCH (17:51)
[2017-07-08] MEDS: Pravastatin Sodium 40 MG TAB PO SCH (20:02)
[2017-07-09 04:40] LABS: Hemoglobin 9.9 g/dL (12.0-16.0); Mean Corpuscular HGB CONC 32.6 g/dL (32.0-36.0); Mean Corpuscular Hemoglobin 29.4 pg (27.0-31.0); Mean Corpuscular Volume 90.3 fl (81.0-99.0); Mean Platelet Volume 5.6 fL (7.4-10.4); Platelet Count 343 thou/uL (130-400); RBC Distribution Width 13.1 % (11.5-14.5); Red Blood Cell (RBC) Count 3.37 mill/uL (4.20-5.40); White Blood Cell (WBC) Count 8.5 thou/uL (4.8-10.8)
[2017-07-09] MEDS: HYDROcodone/Acetaminophen 10/325 mg Tablet PO PRN ×3 (04:45→22:29)
[2017-07-09 04:54] LABS: Anion Gap 12 mmol/L (10-20); BUN (Urea Nitrogen) 15 mg/dL (9.8-20.1); Calc. Creatinine Clearance 67 mL/min (70-130); Calcium 9.3 mg/dL (7.8-10.44); Carbon Dioxide 31 mmol/L (23-31); Chloride 98 mmol/L (98-107); Estimated GFR-MDRD 85; Glucose 106 mg/dL (83-110); Potassium 3.8 mmol/L (3.5-5.1); Sodium 137 mmol/L (136-145)
[2017-07-09 05:02] VITALS: BMI 24.5
[2017-07-09 06:54] LABS: Band 1 % (5-11); Eosinophils 2 % (0-10); Lymphocytes 8 % (21-51); Metamyelocyte 2 % (0-0); Monocytes 9 % (0-10); PLT Morphology Comment Appears Adequate
[2017-07-09] MEDS: Aspirin 81 mg Enteric Coated Tablet PO SCH (08:58)
[2017-07-09] MEDS: metFORMIN 500 MG TAB PO SCH (08:59)
[2017-07-09] MEDS: Oxybutynin 5 MG TAB PO SCH ×2 (08:59→20:32)
[2017-07-09] MEDS: Gabapentin 100 MG CAP PO SCH ×3 (08:59→20:32)
[2017-07-09] MEDS: Multivit, Chewable SF 1 TAB PO SCH (08:59)
[2017-07-09] MEDS: Furosemide 40 MG/4 ML VIAL SLOW IVP SCH (09:00)
[2017-07-09] MEDS: Docusate 100 MG CAP PO SCH ×2 (09:00→20:32)
--- NOTE | 2017-07-09 09:02 | RAD ---
TWO VIEWS CHEST: 07/09/2017 HISTORY: Short of breath. COMPARISON: 07/07/2017 FINDINGS: There is diffuse linear increased interstitial density. The interstitial densities are improved sinc e the 07/07/2017 exam. There is mild residual bibasilar alveolar opacity. Diffuse alveolar opacity noted on the prior exam is improved as well. No pneumothorax. The cardiac silhouette is enlarged. There is atherosclerotic calcification of the aortic arch. IMPRESSION: Improving interstitial and alveolar opacity suggests improving pulmonary edema. Followup to full res olution advised. POS: MAGALYS
[2017-07-09 09:18] LABS: Neutrophil 78 % (42-75)
--- NOTE | 2017-07-09 15:22 | PDOC.PN ---
- Subjective Encounter Start Date: 07/09/17 Encounter Start Time: 15:20 CC: Dyspnea sub: pt says she feels better - Objective Resuscitation Status: Resuscitation Status FULL:Full Resuscitation Vital Signs & Weight: Vital Signs (12 hours) Temp Pulse Pulse Pulse Pulse Resp BP 07/09/17 11:23 98.4 F 52 L 19 07/09/17 10:15 48 L 48 L 07/09/17 09:32 57 L 55 L 107/68 07/09/17 08:00 98.3 F 62 19 07/09/17 04:08 97.9 F 65 20 BP BP BP BP Pulse Ox Pulse Ox Pulse Ox 07/09/17 11:23 131/58 L 98 07/09/17 10:15 116/57 L 94/53 L 96 07/09/17 09:32 103/55 L 95 96 07/09/17 08:00 145/63 H 94 L 07/09/17 04:08 132/62 94 L Pulse Ox 07/09/17 11:23 07/09/17 10:15 98 07/09/17 09:32 07/09/17 08:00 07/09/17 04:08 Weight Weight 138 lb 11.2 oz I&O: 07/08/17 07/09/17 07/10/17 06:59 06:59 06:59 Intake Total 720 740 Output Total 400 1425 Balance 320 -685 Result Diagrams: 07/09/17 04:23 07/09/17 04:23 Additional Labs: Accuchecks 07/09/17 07/09/17 07/08/17 10:45 06:02 20:04 POC Glucose 176 H 104 123 H 07/08/17 07/08/17 16:31 05:28 POC Glucose 99 96 Dx/Plan - Plan Pt is 76 yrs old female 1. Acute hypoxic respiratory failure - likely secondary to CHF exacerbation. IV diuresis, strict I/Os, daily weights low sodium diet. Last echo showed EF 50-55% 2. exacerbation of HF with preserved EF - see above 3. Pyelonephritis - IV antibiotics. 4. Supratherapeutic INR - hold warfarin. Repeat PT/INR tomorrow. 5. Normocytic anemia - consider iron studies 6. CAD - medical management 7. Hypertension - restart home antihypertensives 8. Diabetes mellitus - restart home medications. 9. Hx of TIA 10. Hx of afib s/p ablation, on long-term anticoagulation 11. Renal cyst, r/o mass Plan: continue lasix at 40mg daily monitor bp closely inr still elevated. will check inr in am, hold coumadin today also continue insulin sliding scale. monitor blood sugars closely continue bp meds cardio on board. waiting for their input urology consulted. case d/w pt & RN
[2017-07-09] MEDS: cefTRIAXone\\ROCEPHIN 1 GM, Syringe 0.4 ML in Sterile Water 9.6 ML SLOW IVP SCH (18:46)
[2017-07-09] MEDS: Pravastatin Sodium 40 MG TAB PO SCH (20:32)
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
[2017-07-10] MEDS: HYDROcodone/Acetaminophen 10/325 mg Tablet PO PRN ×3 (05:10→22:39)
[2017-07-10 05:53] LABS: #Eosinphils 0.7 thou/uL (0.0-0.7); #Lymphocytes 1.4 thou/uL (1.20-3.40); #Monocytes 0.5 thou/uL (0.11-0.59); #Neutrophils 4.7 thou/uL (1.40-6.50); %Basophils 0.4 % (0.0-1.0); %Eosinophils 9.7 % (0.0-10.0); %Lymphocytes 18.5 % (21.0-51.0); %Neutrophils 64.3 % (42.0-75.0); Hemoglobin 9.4 g/dL (12.0-16.0); Hemoglobin 9.5 g/dL (12.0-16.0); Mean Corpuscular HGB CONC 31.6 g/dL (32.0-36.0); Mean Corpuscular HGB CONC 31.7 g/dL (32.0-36.0); Mean Corpuscular Hemoglobin 29.2 pg (27.0-31.0); Mean Corpuscular Hemoglobin 29.3 pg (27.0-31.0); Mean Corpuscular Volume 92.4 fl (81.0-99.0); Mean Platelet Volume 5.8 fL (7.4-10.4); Platelet Count 358 thou/uL (130-400); Platelet Count 362 thou/uL (130-400); RBC Distribution Width 12.8 % (11.5-14.5); Red Blood Cell (RBC) Count 3.24 mill/uL (4.20-5.40); White Blood Cell (WBC) Count 7.2 thou/uL (4.8-10.8); White Blood Cell (WBC) Count 7.3 thou/uL (4.8-10.8)
[2017-07-10 05:54] LABS: INR-International Normal Ratio 3.4; Prothrombin Time 35.6 SEC (12.0-14.7)
[2017-07-10 06:01] LABS: Anion Gap 10 mmol/L (10-20); BUN (Urea Nitrogen) 12 mg/dL (9.8-20.1); Calc. Creatinine Clearance 67 mL/min (70-130); Calcium 9.2 mg/dL (7.8-10.44); Carbon Dioxide 34 mmol/L (23-31); Chloride 99 mmol/L (98-107); Estimated GFR-MDRD 82; Glucose 88 mg/dL (83-110); Potassium 3.9 mmol/L (3.5-5.1); Sodium 139 mmol/L (136-145)
[2017-07-10] MEDS: metFORMIN 500 MG TAB PO SCH (09:32)
[2017-07-10] MEDS: Gabapentin 100 MG CAP PO SCH ×3 (09:32→21:11)
[2017-07-10] MEDS: Oxybutynin 5 MG TAB PO SCH ×2 (09:33→21:11)
[2017-07-10] MEDS: Multivit, Chewable SF 1 TAB PO SCH (09:33)
[2017-07-10] MEDS: Furosemide 40 MG/4 ML VIAL SLOW IVP SCH (09:33)
[2017-07-10] MEDS: Docusate 100 MG CAP PO SCH ×2 (09:33→21:11)
[2017-07-10] MEDS: Aspirin 81 mg Enteric Coated Tablet PO SCH (09:33)
--- NOTE | 2017-07-10 13:13 | PDOC.PN ---
- Subjective Encounter Start Date: 07/10/17 Encounter Start Time: 09:00 Subjective: breathing better, no sob or chest pain - Objective Resuscitation Status: Resuscitation Status FULL:Full Resuscitation MAR Reviewed: Yes Vital Signs & Weight: Vital Signs (12 hours) Temp Pulse Resp BP Pulse Ox 07/10/17 08:01 98.0 F 53 L 19 107/58 L 96 07/10/17 04:00 98.0 F 56 L 16 106/54 L 92 L Weight Weight 134 lb I&O: 07/09/17 07/10/17 07/11/17 06:59 06:59 06:59 Intake Total 740 360 Output Total 1425 500 Balance -685 -140 Result Diagrams: 07/10/17 05:28 07/10/17 05:28 Additional Labs: Accuchecks 07/10/17 07/10/17 07/09/17 11:08 06:44 20:25 POC Glucose 115 H 98 129 H 07/09/17 10:45 POC Glucose 176 H Phys Exam - Physical Examination HEENT: PERRLA, moist MMs Neck: no JVD, supple Respiratory: no wheezing, no rales Cardiovascular: RRR, no significant murmur Gastrointestinal: soft, non-tender, positive bowel sounds Musculoskeletal: no edema, pulses present Neurological: non-focal, moves all 4 limbs Psychiatric: A&O x 3 Dx/Plan (1) CHF (congestive heart failure) Code(s): I50.9 - HEART FAILURE, UNSPECIFIED Status: Acute Qualifiers: Heart failure type: diastolic Heart failure chronicity: acute Qualified Code(s): I50.31 - Acute diastolic (congestive) heart failure (2) HLD (hyperlipidemia) Code(s): E78.5 - HYPERLIPIDEMIA, UNSPECIFIED Status: Chronic Qualifiers: Hyperlipidemia type: unspecified Qualified Code(s): E78.5 - Hyperlipidemia , unspecified (3) HTN (hypertension) Code(s): I10 - ESSENTIAL (PRIMARY) HYPERTENSION Status: Chronic Qualifiers: Hypertension type: essential hypertension Qualified Code(s): I10 - Essential (primary) hypertension (4) Pyelonephritis Code(s): N12 - TUBULO-INTERSTITIAL NEPHRITIS, NOT SPCF ACUTE OR CHRONIC Status: Acute (5) Atrial fibrillation Code(s): I48.91 - UNSPECIFIED ATRIAL FIBRILLATION Status: Chronic Qualifiers: Atrial fibrillation type: chronic Qualified Code(s): I48.2 - Chronic atrial fibrillation - Plan is on ceftriaxone -: oral lasix, dc ballesteros -: to amb as tolerated, is on home oxygen -: to restart coumadin from am, inr is 3.4 today -: dc plan in 24hrs, await full urine cs report * . Review of Systems - Medications/Allergies Allergies/Adverse Reactions: Allergies Allergy/AdvReac Type Severity Reaction Status Date / Time levofloxacin Allergy Intermediate Rash Verified 02/04/17 08:47 cyclobenzaprine Allergy Verified 02/04/17 08:47 [From Flexeril] Penicillins Allergy Verified 02/04/17 08:47 Sulfa (Sulfonamide Allergy Verified 02/04/17 08:47 Antibiotics) Medications: Current Medications Hydrocodone Bitart/Acetaminophen ([place] 10/325) 1 tab PO Q6HR PRN PRN Reason: Pain Last Admin: 07/10/17 05:10 Dose: 1 tab Aspirin (Ecotrin) 81 mg PO DAILY [facility] Last Admin: 07/10/17 09:33 Dose: 81 mg Cholecalciferol (Vitamin D3) 1,000 units PO QAM [facility] Last Admin: 07/10/17 09:32 Dose: 1,000 units Dextrose/Water (Dextrose 50%) 25 gm SLOW IVP PRN PRN PRN Reason: Hypoglycemia Docusate Sodium (Colace) 100 mg PO BID [facility] Last Admin: 07/10/17 09:33 Dose: 100 mg Furosemide (Lasix) 40 mg PO 0900,1400 [facility] Gabapentin (Neurontin) 100 mg PO TID [facility] Last Admin: 07/10/17 09:32 Dose: 100 mg Glucagon (Glucagon) 1 mg IM PRN PRN PRN Reason: Hypoglycemia Ceftriaxone Sodium 1 gm/ (Syringe 0.4 ml/ Sterile Water) 10 mls @ 120 mls/hr SLOW IVP Q24HR@1800 [facility] Last Admin: 07/09/17 18:46 Dose: 10 mls Dextrose/Water (D5w) 1,000 mls @ 0 mls/hr IV .Q0M PRN; As Directed PRN Reason: Hypoglycemia Insulin Human Lispro (Humalog) 0 units SC .MODERATE SLIDING SC PRN PRN Reason: Moderate Correctional Scale Insulin Human Lispro (Humalog) 0 units SC .BEDTIME SLIDING SC PRN PRN Reason: Bedtime Correctional Scale Metformin HCl (Glucophage) 1,000 mg PO QAM-WM [facility] Last Admin: 07/10/17 09:32 Dose: 1,000 mg Metoprolol Succinate (Toprol Xl) [address] [facility] Last Admin: 07/09/17 20:36 Dose: 25 mg Multivitamins (Multivit, Chewable Sf) 1 tab PO DAILY [facility] Last Admin: 07/10/17 09:33 Dose: 1 tab Oxybutynin Chloride (Ditropan) 5 mg PO BID [facility] Last Admin: 07/10/17 09:33 Dose: 5 mg Pantoprazole Sodium (Protonix) 40 mg PO DAILY [facility] Last Admin: 07/10/17 09:32 Dose: 40 mg Pravastatin Sodium (Pravachol) [address] [facility] Last Admin: 07/09/17 20:32 Dose: 40 mg
[2017-07-10] MEDS: Furosemide 40 MG TAB PO SCH (14:02)
[2017-07-10] MEDS ORDERED: Polyethylene Glycol 3350 17 GM Packet PO SCH (15:15)
[2017-07-10] MEDS ORDERED: Docusate 100 MG CAP PO SCH (15:15)
[2017-07-10] MEDS: cefTRIAXone\\ROCEPHIN 1 GM, Syringe 0.4 ML in Sterile Water 9.6 ML SLOW IVP SCH (18:10)
[2017-07-10] MEDS: Pravastatin Sodium 40 MG TAB PO SCH (21:11)
[2017-07-11 06:06] LABS: INR-International Normal Ratio 2.3; Prothrombin Time 26.2 SEC (12.0-14.7)
[2017-07-11] MEDS: Oxybutynin 5 MG TAB PO SCH ×2 (09:20→20:28)
[2017-07-11] MEDS: Multivit, Chewable SF 1 TAB PO SCH (09:20)
[2017-07-11] MEDS: metFORMIN 500 MG TAB PO SCH (09:20)
[2017-07-11] MEDS: Gabapentin 100 MG CAP PO SCH ×3 (09:21→20:28)
[2017-07-11] MEDS: Aspirin 81 mg Enteric Coated Tablet PO SCH (09:21)
[2017-07-11] MEDS: Furosemide 40 MG TAB PO SCH ×2 (09:21→14:43)
[2017-07-11] MEDS: Docusate 100 MG CAP PO SCH ×2 (09:21→20:28)
[2017-07-11] MEDS: HYDROcodone/Acetaminophen 10/325 mg Tablet PO PRN ×2 (12:55→20:29)
--- NOTE | 2017-07-11 14:02 | PDOC.PN ---
- Subjective Encounter Start Date: 07/11/17 Encounter Start Time: 10:10 Subjective: feels better, no sob or palp - Objective Resuscitation Status: Resuscitation Status FULL:Full Resuscitation MAR Reviewed: Yes Vital Signs & Weight: Vital Signs (12 hours) Temp Pulse Pulse Pulse Resp BP BP 07/11/17 12:52 56 L 50 L 140/61 115/55 L 07/11/17 10:50 98.7 F 52 L 16 07/11/17 07:52 98.2 F 45 L 18 07/11/17 04:10 97.7 F 50 L 16 BP BP Pulse Ox Pulse Ox Pulse Ox 07/11/17 12:52 90 L 98 07/11/17 10:50 160/70 H 95 07/11/17 07:52 134/77 99 07/11/17 04:10 130/58 L 96 Weight Weight 133 lb 12.8 oz I&O: 07/10/17 07/11/17 07/12/17 06:59 06:59 06:59 Intake Total 360 240 Output Total 500 1500 Balance -140 -1500 240 Result Diagrams: 07/10/17 05:28 07/10/17 05:28 Additional Labs: Accuchecks 07/11/17 07/10/17 05:40 16:50 POC Glucose 95 115 H Phys Exam - Physical Examination HEENT: PERRLA, moist MMs Neck: no JVD, supple Respiratory: no wheezing, no rales Cardiovascular: RRR, no significant murmur Gastrointestinal: soft, non-tender, positive bowel sounds Musculoskeletal: no edema, pulses present Neurological: non-focal, moves all 4 limbs Psychiatric: normal affect, A&O x 3 Dx/Plan (1) CHF (congestive heart failure) Code(s): I50.9 - HEART FAILURE, UNSPECIFIED Status: Acute Qualifiers: Heart failure type: diastolic Heart failure chronicity: acute Qualified Code(s): I50.31 - Acute diastolic (congestive) heart failure (2) HLD (hyperlipidemia) Code(s): E78.5 - HYPERLIPIDEMIA, UNSPECIFIED Status: Chronic Qualifiers: Hyperlipidemia type: unspecified Qualified Code(s): E78.5 - Hyperlipidemia , unspecified (3) HTN (hypertension) Code(s): I10 - ESSENTIAL (PRIMARY) HYPERTENSION Status: Chronic Qualifiers: Hypertension type: essential hypertension Qualified Code(s): I10 - Essential (primary) hypertension (4) Pyelonephritis Code(s): N12 - TUBULO-INTERSTITIAL NEPHRITIS, NOT SPCF ACUTE OR CHRONIC Status: Acute (5) Atrial fibrillation Code(s): I48.91 - UNSPECIFIED ATRIAL FIBRILLATION Status: Chronic Qualifiers: Atrial fibrillation type: chronic Qualified Code(s): I48.2 - Chronic atrial fibrillation - Plan hemostable -: has amb 140ft with rw -: dc toprol due to dominic episode with hr going down to 45 -: ceftriaxone for uti, urine cs still not availabe (gm-ve jacqueline) -: family and pt want to go to rehab, may dc if accepted * . Review of Systems - Medications/Allergies Allergies/Adverse Reactions: Allergies Allergy/AdvReac Type Severity Reaction Status Date / Time levofloxacin Allergy Intermediate Rash Verified 02/04/17 08:47 cyclobenzaprine Allergy Verified 02/04/17 08:47 [From Flexeril] Penicillins Allergy Verified 02/04/17 08:47 Sulfa (Sulfonamide Allergy Verified 02/04/17 08:47 Antibiotics) Medications: Current Medications Hydrocodone Bitart/Acetaminophen ([place] 10/325) 1 tab PO Q6HR PRN PRN Reason: Pain Last Admin: 07/11/17 12:55 Dose: 1 tab Aspirin (Ecotrin) 81 mg PO DAILY [facility] Last Admin: 07/11/17 09:21 Dose: 81 mg Cholecalciferol (Vitamin D3) 1,000 units PO QAM [facility] Last Admin: 07/11/17 09:20 Dose: 1,000 units Dextrose/Water (Dextrose 50%) 25 gm SLOW IVP PRN PRN PRN Reason: Hypoglycemia Docusate Sodium (Colace) 100 mg PO BID [facility] Last Admin: 07/11/17 09:21 Dose: 100 mg Furosemide (Lasix) 40 mg PO 0900,1400 [facility] Last Admin: 07/11/17 09:21 Dose: 40 mg Gabapentin (Neurontin) 100 mg PO TID [facility] Last Admin: 07/11/17 09:21 Dose: 100 mg Glucagon (Glucagon) 1 mg IM PRN PRN PRN Reason: Hypoglycemia Ceftriaxone Sodium 1 gm/ (Syringe 0.4 ml/ Sterile Water) 10 mls @ 120 mls/hr SLOW IVP Q24HR@1800 [facility] Last Admin: 07/10/17 18:10 Dose: 10 mls Dextrose/Water (D5w) 1,000 mls @ 0 mls/hr IV .Q0M PRN; As Directed PRN Reason: Hypoglycemia Insulin Human Lispro (Humalog) 0 units SC .MODERATE SLIDING SC PRN PRN Reason: Moderate Correctional Scale Insulin Human Lispro (Humalog) 0 units SC .BEDTIME SLIDING SC PRN PRN Reason: Bedtime Correctional Scale Metformin HCl (Glucophage) 1,000 mg PO QA-[facility] Last Admin: 07/11/17 09:20 Dose: 1,000 mg Multivitamins (Multivit, Chewable Sf) 1 tab PO DAILY [facility] Last Admin: 07/11/17 09:20 Dose: 1 tab Oxybutynin Chloride (Ditropan) 5 mg PO BID [facility] Last Admin: 07/11/17 09:20 Dose: 5 mg Pantoprazole Sodium (Protonix) 40 mg PO DAILY [facility] Last Admin: 07/11/17 09:21 Dose: 40 mg Pravastatin Sodium (Pravachol) 40 mg PO HS [facility] Last Admin: 07/10/17 21:11 Dose: 40 mg
[2017-07-11] MEDS: cefTRIAXone\\ROCEPHIN 1 GM, Syringe 0.4 ML in Sterile Water 9.6 ML SLOW IVP SCH (18:26)
[2017-07-11] MEDS: Nitrofurantoin Monohyd/M-Cryst 100 MG CAP PO SCH (20:28)
[2017-07-11] MEDS: Pravastatin Sodium 40 MG TAB PO SCH (20:29)
[2017-07-12 06:11] LABS: INR-International Normal Ratio 1.8
[2017-07-12] MEDS: Nitrofurantoin Monohyd/M-Cryst 100 MG CAP PO SCH ×2 (09:51→21:08)
[2017-07-12] MEDS: metFORMIN 500 MG TAB PO SCH (09:51)
[2017-07-12] MEDS: Docusate 100 MG CAP PO SCH ×2 (09:53→21:08)
[2017-07-12] MEDS: Oxybutynin 5 MG TAB PO SCH ×2 (09:53→21:09)
[2017-07-12] MEDS: Multivit, Chewable SF 1 TAB PO SCH (09:53)
[2017-07-12] MEDS: Furosemide 40 MG TAB PO SCH (09:53)
[2017-07-12] MEDS: Gabapentin 100 MG CAP PO SCH ×3 (09:54→21:08)
--- NOTE | 2017-07-12 11:54 | PDOC.PN ---
- Subjective Encounter Start Date: 07/12/17 Encounter Start Time: 09:00 Subjective: no jessi bleeding anywhere -: says she is constipated, has had prior hemorrhoids -: no sob - Objective Resuscitation Status: Resuscitation Status FULL:Full Resuscitation MAR Reviewed: Yes Vital Signs & Weight: Vital Signs (12 hours) Temp Pulse Resp BP Pulse Ox 07/12/17 08:00 97.9 F 56 L 19 117/58 L 97 07/12/17 04:35 98.0 F 57 L 16 126/58 L 95 Weight Weight 133 lb 14.4 oz I&O: 07/11/17 07/12/17 07/13/17 06:59 06:59 06:59 Intake Total 1200 240 Output Total 1500 1400 Balance -1500 -200 240 Result Diagrams: 07/10/17 05:28 07/10/17 05:28 Additional Labs: Accuchecks 07/11/17 07/11/17 07/11/17 20:57 15:48 11:16 POC Glucose 141 H 94 114 H 07/10/17 20:46 POC Glucose 107 Phys Exam - Physical Examination HEENT: PERRLA, moist MMs Neck: no JVD, supple Respiratory: no wheezing, no rales Cardiovascular: RRR, no significant murmur Gastrointestinal: soft, non-tender, positive bowel sounds Musculoskeletal: no edema, pulses present Neurological: non-focal, moves all 4 limbs Psychiatric: A&O x 3 Dx/Plan (1) CHF (congestive heart failure) Code(s): I50.9 - HEART FAILURE, UNSPECIFIED Status: Acute Qualifiers: Heart failure type: diastolic Heart failure chronicity: acute Qualified Code(s): I50.31 - Acute diastolic (congestive) heart failure (2) HLD (hyperlipidemia) Code(s): E78.5 - HYPERLIPIDEMIA, UNSPECIFIED Status: Chronic Qualifiers: Hyperlipidemia type: unspecified Qualified Code(s): E78.5 - Hyperlipidemia , unspecified (3) HTN (hypertension) Code(s): I10 - ESSENTIAL (PRIMARY) HYPERTENSION Status: Chronic Qualifiers: Hypertension type: essential hypertension Qualified Code(s): I10 - Essential (primary) hypertension (4) Pyelonephritis Code(s): N12 - TUBULO-INTERSTITIAL NEPHRITIS, NOT SPCF ACUTE OR CHRONIC Status: Acute (5) Atrial fibrillation Code(s): I48.91 - UNSPECIFIED ATRIAL FIBRILLATION Status: Chronic Qualifiers: Atrial fibrillation type: chronic Qualified Code(s): I48.2 - Chronic atrial fibrillation (6) Chronic anemia Code(s): D64.9 - ANEMIA, UNSPECIFIED Status: Chronic (7) Warfarin-induced coagulopathy Code(s): D68.32 - HEMORRHAGIC DISORD D/T EXTRINSIC CIRCULATING ANTICOAGULANTS; T45.515A - ADVERSE EFFECT OF ANTICOAGULANTS, INITIAL ENCOUNTER Status: Resolved - Plan fobtx1 is +ve, d/w -: as pt is on coumadin will have egd/colono in am -: dc plan to rehab tomorrow evening if stable -: Hb stable around 9g -: inr is 1.8, is off coumadin from admit * . change lasix to daily protonix bid until scopes are done. Review of Systems - Medications/Allergies Allergies/Adverse Reactions: Allergies Allergy/AdvReac Type Severity Reaction Status Date / Time levofloxacin Allergy Intermediate Rash Verified 02/04/17 08:47 cyclobenzaprine Allergy Verified 02/04/17 08:47 [From Flexeril] Penicillins Allergy Verified 02/04/17 08:47 Sulfa (Sulfonamide Allergy Verified 02/04/17 08:47 Antibiotics) Medications: Current Medications Hydrocodone Bitart/Acetaminophen ([place] 10/325) 1 tab PO Q6HR PRN PRN Reason: Pain Last Admin: 07/11/17 20:29 Dose: 1 tab Cholecalciferol (Vitamin D3) 1,000 units PO QAM [facility] Last Admin: 07/12/17 09:54 Dose: 1,000 units Dextrose/Water (Dextrose 50%) 25 gm SLOW IVP PRN PRN PRN Reason: Hypoglycemia Docusate Sodium (Colace) 100 mg PO BID [facility] Last Admin: 07/12/17 09:53 Dose: 100 mg Furosemide (Lasix) 40 mg PO 0900,1400 [facility] Last Admin: 07/12/17 09:53 Dose: 40 mg Gabapentin (Neurontin) 100 mg PO TID [facility] Last Admin: 07/12/17 09:54 Dose: 100 mg Glucagon (Glucagon) 1 mg IM PRN PRN PRN Reason: Hypoglycemia Dextrose/Water (D5w) 1,000 mls @ 0 mls/hr IV .Q0M PRN; As Directed PRN Reason: Hypoglycemia Insulin Human Lispro (Humalog) 0 units SC .MODERATE SLIDING SC PRN PRN Reason: Moderate Correctional Scale Insulin Human Lispro (Humalog) 0 units SC .BEDTIME SLIDING SC PRN PRN Reason: Bedtime Correctional Scale Metformin HCl (Glucophage) 1,000 mg PO QAM-WM [facility] Last Admin: 07/12/17 09:51 Dose: 1,000 mg Multivitamins (Multivit, Chewable Sf) 1 tab PO DAILY [facility] Last Admin: 07/12/17 09:53 Dose: 1 tab Nitrofurantoin Macrocrystals (Macrobid) 100 mg PO BID [facility] Last Admin: 07/12/17 09:51 Dose: 100 mg Oxybutynin Chloride (Ditropan) 5 mg PO BID [facility] Last Admin: 07/12/17 09:53 Dose: 5 mg Pantoprazole Sodium (Protonix) 40 mg PO BID [facility] Last Admin: 07/12/17 09:53 Dose: 40 mg Pravastatin Sodium (Pravachol) 40 mg PO HS [facility] Last Admin: 07/11/17 20:29 Dose: 40 mg
[2017-07-12] MEDS ORDERED: GoLYTELY 4,000 ml Bottle PO SCH ×2 (13:15→20:00)
[2017-07-12] MEDS: HYDROcodone/Acetaminophen 10/325 mg Tablet PO PRN ×2 (13:19→21:09)
[2017-07-12] MEDS: Pravastatin Sodium 40 MG TAB PO SCH (21:09)
--- NOTE | 2017-07-12 21:32 | CON ---
DATE OF CONSULTATION: 07/12/2017 REASON FOR CONSULTATION: Anemia. CONSULTING PHYSICIAN: Dr. Gurdeep Partida. HISTORY OF PRESENT ILLNESS: Patient is a 76-year-old female with past medical history of coronary ar ana disease, congestive heart failure, atrial fibrillation on anticoagulation, diabetes, hypertensio n, hyperlipidemia, insomnia, depression, anxiety, TIA, macular degeneration, and urinary incontinence who was initially admitted to the hospital for an increased weakness, shortness of breath, dyspnea o n exertion, and supratherapeutic INR. Initially, she was admitted with shortness of breath, it was d eemed to be an acute exacerbation of her chronic congestive heart failure, and she responded well to the infusion of IV diuresis; however, during this admission, she was noted to have a decreased H&H wi th a positive FOBT on admission concerning for possible GI pathology. Despite having a supratherapeu tic INR, she denies any hematemesis, melena, or hematochezia and has had significant improvement of h er clinical status when compared to admission. Currently, denies any nausea, vomiting, fevers, chill s, chest pain, abdominal pain, GI bleeding, odynophagia, or dysphagia. Of note, her last colonoscopy was in 2002 that showed diverticulosis and mild inflammatory change wit hin the cecum that was later deemed to be lymphoid aggregates. REVIEW OF SYSTEMS: Ten-category review of systems was obtained with all responses negative except fo r the pertinent positives as listed in the HPI. PAST MEDICAL HISTORY: See HPI. PAST SURGICAL HISTORY: Right hip replacement, right knee repair, bilateral cataracts removal, append ectomy, cholecystectomy, hysterectomy, and pulmonary-vein isolation. FAMILY HISTORY: Diabetes in both her mother and father. Denies GI malignancy. SOCIAL HISTORY: Denies tobacco and illicit drug use. Would previously drink 1-2 glasses of wine per day prior to admission. OUTPATIENT MEDICATIONS: Reviewed. ALLERGIES: LEVOFLOXACIN, CYCLOBENZAPRINE, PENICILLIN, and SULFA. PHYSICAL EXAMINATION: VITAL SIGNS: Temperature of 98.2, pulse 66, blood pressure 109/55, respiratory rate 18, satting 98% on 2 liters nasal cannula. GENERAL: Patient is lying in bed in no acute distress. Alert and oriented x4. NECK: Supple. No discernible JVD noted. CARDIOVASCULAR: Regular rate and rhythm with a 3/6 systolic murmur heard at the left upper sternal b order. RESPIRATORY: Clear to auscultation bilaterally with no discernible wheezes or rales. ABDOMEN: Normoactive bowel sounds. Soft, nontender, nondistended. EXTREMITIES: No cyanosis, clubbing, or edema. LABORATORY DATA: CBC with a white blood cell count of 7.3, hemoglobin 9.5, hematocrit 29.9, platelet s 362. INR 1.8. No current chemistry is available for review. IMAGING DATA: Chest x-ray obtained on 07/09/2017 showed improving interstitial and alveolar opacitie s, but suggesting improved pulmonary edema. ASSESSMENT AND PLAN: Patient is a 76-year-old female with past medical history of coronary artery di sease, acute on chronic congestive heart failure exacerbation, atrial fibrillation on anticoagulation , diabetes, hypertension, hyperlipidemia, insomnia, depression, anxiety, transient ischemic attack, m acular degeneration, and urinary incontinence presenting with anemia while on supratherapeutic INR. Anemia: Patient is presenting with increased shortness of breath, and dyspnea on exertion with a sup ratherapeutic INR, initially concerning for possible bleeding source; however, her initial clinical s tatus was more consistent with a congestive heart failure exacerbation. There were responded well to IV diuresis. Her H&H has remained stable during this hospitalization, but with the history of antic oagulation on Eliquis and the positive FOBT on admission, it is concerning for possible GI bleeding s ource and needs to be ruled out prior to placing patient back on anticoagulation. RECOMMENDATIONS: 1. Please continue to trend H&H and transfuse as necessary to maintain an H&H of 7/21. 2. Continue to monitor clinically for signs of GI bleeding. 3. Please make patient n.p.o. at midnight in preparation for both EGD and colonoscopy tomorrow yury henderson. Orders for GoLYTELY administration will be placed in preparation for these procedures. 4. Would hold morning dose of anticoagulation and would continue to trend INR. 5. We will continue to follow, please call any additional questions.
[2017-07-13] MEDS ORDERED: Ondansetron HCl/PF 4 MG/2 ML Vial SLOW IVP PRN (00:59)
[2017-07-13 05:19] LABS: INR-International Normal Ratio 1.5; Prothrombin Time 18.5 SEC (12.0-14.7)
[2017-07-13] MEDS ORDERED: Furosemide 40 MG TAB PO SCH (07:30)
[2017-07-13] MEDS ORDERED: PROPOFOL 40 ML ONE (11:07)
--- NOTE | 2017-07-13 11:34 | PDOC.PN ---
- Subjective Encounter Start Date: 07/13/17 Encounter Start Time: 08:45 Subjective: no abd pain or sob - Objective Resuscitation Status: Resuscitation Status FULL:Full Resuscitation MAR Reviewed: Yes Vital Signs & Weight: Vital Signs (12 hours) Temp Pulse Resp BP Pulse Ox 07/13/17 08:00 97.9 F 63 18 143/63 H 98 07/13/17 04:05 97.4 F L 62 18 145/83 H 98 Weight Weight 136 lb 12.8 oz I&O: 07/12/17 07/13/17 07/14/17 06:59 06:59 06:59 Intake Total 1200 4460 Output Total 1400 1250 Balance -200 3210 Result Diagrams: 07/10/17 05:28 07/10/17 05:28 Additional Labs: Accuchecks 07/12/17 07/12/17 07/12/17 20:58 11:26 05:59 POC Glucose 115 H 166 H 101 Phys Exam - Physical Examination HEENT: PERRLA, moist MMs Neck: no JVD, supple Respiratory: no wheezing, no rales Cardiovascular: RRR, no significant murmur Gastrointestinal: soft, non-tender, positive bowel sounds Musculoskeletal: no edema, pulses present Neurological: non-focal, moves all 4 limbs Psychiatric: A&O x 3 Dx/Plan (1) CHF (congestive heart failure) Code(s): I50.9 - HEART FAILURE, UNSPECIFIED Status: Acute Qualifiers: Heart failure type: diastolic Heart failure chronicity: acute Qualified Code(s): I50.31 - Acute diastolic (congestive) heart failure (2) HLD (hyperlipidemia) Code(s): E78.5 - HYPERLIPIDEMIA, UNSPECIFIED Status: Chronic Qualifiers: Hyperlipidemia type: unspecified Qualified Code(s): E78.5 - Hyperlipidemia , unspecified (3) HTN (hypertension) Code(s): I10 - ESSENTIAL (PRIMARY) HYPERTENSION Status: Chronic Qualifiers: Hypertension type: essential hypertension Qualified Code(s): I10 - Essential (primary) hypertension (4) Pyelonephritis Code(s): N12 - TUBULO-INTERSTITIAL NEPHRITIS, NOT SPCF ACUTE OR CHRONIC Status: Resolved (5) Atrial fibrillation Code(s): I48.91 - UNSPECIFIED ATRIAL FIBRILLATION Status: Chronic Qualifiers: Atrial fibrillation type: chronic Qualified Code(s): I48.2 - Chronic atrial fibrillation (6) Chronic anemia Code(s): D64.9 - ANEMIA, UNSPECIFIED Status: Chronic (7) Warfarin-induced coagulopathy Code(s): D68.32 - HEMORRHAGIC DISORD D/T EXTRINSIC CIRCULATING ANTICOAGULANTS; T45.515A - ADVERSE EFFECT OF ANTICOAGULANTS, INITIAL ENCOUNTER Status: Resolved - Plan for egd/colonoscopy today -: may dc to rehab if above and GI is ok -: hemostable * . Review of Systems - Medications/Allergies Allergies/Adverse Reactions: Allergies Allergy/AdvReac Type Severity Reaction Status Date / Time levofloxacin Allergy Intermediate Rash Verified 02/04/17 08:47 cyclobenzaprine Allergy Verified 02/04/17 08:47 [From Flexeril] Penicillins Allergy Verified 02/04/17 08:47 Sulfa (Sulfonamide Allergy Verified 02/04/17 08:47 Antibiotics) Medications: Current Medications Hydrocodone Bitart/Acetaminophen ([place] 10/325) 1 tab PO Q6HR PRN PRN Reason: Pain Last Admin: 07/12/17 21:09 Dose: 1 tab Cholecalciferol (Vitamin D3) [facility] Last Admin: 07/12/17 09:54 Dose: 1,000 units Dextrose/Water (Dextrose 50%) 25 gm SLOW IVP PRN PRN PRN Reason: Hypoglycemia Docusate Sodium (Colace) 100 mg PO BID [facility] Last Admin: 07/12/17 21:08 Dose: Not Given Furosemide (Lasix) 40 mg PO DAILY-[facility] Gabapentin (Neurontin) 100 mg PO TID [facility] Last Admin: 07/12/17 21:08 Dose: 100 mg Glucagon (Glucagon) 1 mg IM PRN PRN PRN Reason: Hypoglycemia Dextrose/Water (D5w) 1,000 mls @ 0 mls/hr IV .Q0M PRN; As Directed PRN Reason: Hypoglycemia Insulin Human Lispro (Humalog) 0 units SC .MODERATE SLIDING SC PRN PRN Reason: Moderate Correctional Scale Insulin Human Lispro (Humalog) 0 units SC .BEDTIME SLIDING SC PRN PRN Reason: Bedtime Correctional Scale Metformin HCl (Glucophage) 1,000 mg PO QAM-[facility] Last Admin: 07/12/17 09:51 Dose: 1,000 mg Multivitamins (Multivit, Chewable Sf) 1 tab PO DAILY [facility] Last Admin: 07/12/17 09:53 Dose: 1 tab Nitrofurantoin Macrocrystals (Macrobid) 100 mg PO BID [facility] Last Admin: 07/12/17 21:08 Dose: 100 mg Ondansetron HCl (Zofran) 4 mg SLOW IVP Q6H PRN PRN Reason: Nausea/Vomiting Last Admin: 07/13/17 01:05 Dose: 4 mg Oxybutynin Chloride (Ditropan) 5 mg PO BID [facility] Last Admin: 07/12/17 21:09 Dose: 5 mg Pantoprazole Sodium (Protonix) 40 mg PO BID [facility] Last Admin: 07/12/17 21:09 Dose: 40 mg Polyethylene Glycol (Miralax) 17 gm PO DAILY [facility] Pravastatin Sodium (Pravachol) 40 mg PO HS [facility] Last Admin: 07/12/17 21:09 Dose: 40 mg Sodium Chloride (Flush - Normal Saline) 10 ml IVF Q12HR [facility] Sodium Chloride (Flush - Normal Saline) 10 ml IVF PRN PRN PRN Reason: Saline Flush
--- NOTE | 2017-07-13 12:28 | OP ---
DATE OF PROCEDURES: 07/13/2017 PROCEDURES: Esophagogastroduodenoscopy (diagnostic), colonoscopy with polypectomy. INDICATION FOR PROCEDURE: Anemia of unknown origin. DESCRIPTION OF PROCEDURES: After the risks and benefits of the procedures were explained to the roshan ent including risks of bleeding, infection, perforation, reactions to anesthesia and/or pain, informe d consent was obtained. The patient was then taken to the endoscopy suite where deep sedation was ad ministered via propofol and anesthesia support. The standard gastroscope was then introduced into th e mouth with intubation of the esophagus, stomach and first and second portion of the intestines with the findings listed below. The patient tolerated the procedure well with no immediate perioperative complications. ESOPHAGUS: Normal appearing mucosa was seen in the proximal mid and distal esophagus. There was no evidence of erosions, ulcerations, mass lesions or active/recent bleeding. STOMACH: Normal appearing mucosa was seen in the cardia, fundus, body, antrum and incisura. There w as no evidence of erosions, ulcerations, mass lesions or active/recent bleeding. DUODENUM: Normal appearing mucosa was seen in both the duodenal bulb and second portion of the duode num. There was no evidence of erosions, ulcerations, mass lesions or active/recent bleeding. IMPRESSION: Normal upper endoscopy. RECOMMENDATION: Proceed to colonoscopy. COLONOSCOPY: After explaining the risks and benefits of the procedure were explained to the patient including risks of bleeding, infection, perforation, reaction to anesthesia and/or pain, informed con sent was obtained for colonoscopy. The patient was then taken to the endoscopy suite where deep chris tion was administered via propofol and anesthesia support. The standard colonoscope was then introdu claudia into the rectum after an external examination and advanced to the terminal ileum with the finding s listed below. The quality of the prep was good. The patient tolerated the procedure well with no immediate perioperative complications. DIGITAL RECTAL EXAM: Medium size external hemorrhoids were noted on external exam, but no evidence o f active/recent bleeding. COLON FINDINGS: Normal appearing mucosa was seen in the terminal ileum. Normal mucosa was seen at t he ileocecal valve, cecum and appendiceal orifice. Normal appearing mucosa was seen in the ascending colon and transverse colon. A 3 to 4 mm sessile polyp was seen in the descending colon and complete ly removed with cold snare polypectomy. The specimen was retrieved and placed in jar for pathology e valuation. Scattered small diverticula were seen in the distal descending and sigmoid colon without any other abnormalities. Normal appearing mucosa was seen in the rectum. On retroflexion, small int ernal hemorrhoids and hypertrophied anal papillae were seen. IMPRESSION: 1. A 3 to 4 mm sessile descending colon polyp was completely removed with cold snare polypectomy. 2. Mild sigmoid diverticulosis. 3. No etiology for the patient's anemia seen during this examination. RECOMMENDATIONS: 1. Follow up with primary inpatient team. 2. We will follow up on the polypectomy results with repeat colonoscopy interval depending on pathol ogy. 3. Continue to monitor clinically for signs of active gastrointestinal bleeding. 4. We would place the patient on higher fiber diet given the presence of internal and external hemor rhoids as well as diverticulosis. 5. From GI standpoint, the patient can be discharged from the hospital with follow up in the GI clin ic as an outpatient in approximately 2 to 3 weeks. We will sign off at this time. Please call with any additional questions.
[2017-07-13] MEDS: Oxybutynin 5 MG TAB PO SCH (13:52)
[2017-07-13] MEDS: Multivit, Chewable SF 1 TAB PO SCH (13:53)
[2017-07-13] MEDS: Docusate 100 MG CAP PO SCH (13:53)
[2017-07-13] MEDS: Gabapentin 100 MG CAP PO SCH ×2 (13:53→13:57)
[2017-07-13] MEDS: metFORMIN 500 MG TAB PO SCH (13:56)
[2017-07-13] MEDS: HYDROcodone/Acetaminophen 10/325 mg Tablet PO PRN (13:56)
[2017-07-13] MEDS: Nitrofurantoin Monohyd/M-Cryst 100 MG CAP PO SCH (13:57)
--- NOTE | 2017-07-13 13:57 | DIS ---
DATE OF ADMISSION: 07/07/2017 DATE OF DISCHARGE: 07/13/2017 DISCHARGE DISPOSITION: To inpatient rehabilitation. PRIMARY DISCHARGE DIAGNOSES: Chronic anemia, acute congestive heart failure exacerbation with diastolic dysfunction, resolved; urinary tract infection with initial suspicion for pyelonephritis, resolved. SECONDARY DISCHARGE DIAGNOSES: Hypertension, chronic atrial fibrillation, chronic anemia, Coumadin-induced coagulopathy on admission, resolved. PROCEDURES DONE DURING HOSPITALIZATION: Ultrasound of kidneys, bilateral, showed no hydronephrosis, though left renal cystic lesions seen. Chest x-ray showed chronic interstitial changes suspicious for possible congestion, upper and lower endoscopy done this morning, upper endoscopy was normal. Colonoscopy showed 3-4 mm sessile descending colon polyp which was completely removed by cold snare polypectomy. There was mild sigmoid diverticulosis, no active bleeding was seen. Stool occult blood x1 was positive. H and H 9.5 and 30, platelet count 362, MCV is 92. Initial INR was 4.8. discharge numbers of 1.5. Discharge BUN and creatinine is 10 and 0.6, albumin is 3.7. Troponin x3 is negative. DISCHARGE MEDICATIONS: Amiodarone 200 mg p.o. at bedtime, vitamin D3 1000 units p.o. q.a.m., Colace 100 mg p.o. twice daily, MiraLax 17 grams p.o. daily, Coumadin 2.5 mg p.o. daily, Pravachol 40 mg p.o. at bedtime, K-Dur 20 mEq p.o. twice daily, Protonix 40 mg p.o. daily, Macrobid 100 mg p.o. twice daily for another 4 days, Remeron 15 mg p.o. at bedtime, metoprolol succinate extended release 25 mg p.o. at bedtime, Glucophage 1000 mg p.o. daily, gabapentin 100 mg p.o. 3 times daily, Lasix 20 mg p.o. daily, folic acid 1 mg p.o. daily, ferrous sulfate 325 mg p.o. daily, Duloxetine 30 mg p.o. daily. ALLERGIES: LEVAQUIN, PENICILLIN, SULFA, AND FLEXERIL. INPATIENT CONSULTS: Dr. Khoi Krishna for Urology, Dr. Florian Sauer for Gastroenterology. BRIEF COURSE DURING HOSPITALIZATION: Patient initially was admitted on 2017 with complaints of shortness of breath which was progressively getting worse from last 2-3 months. She was also found to have had an initial suspicion for UTI. The patient was admitted to telemetry for acute on chronic CHF exacerbation with diastolic dysfunction. She was also on IV antibiotics for initial suspicion for UTI. Her urine cultures grew gram negative rods, less than 10,000 colony-forming units per mL The patient's stool occult blood x1 came back positive with her hemoglobin of 9.5 and her being on Coumadin. She also had coagulopathy with INR of 4.8 on admission. Her Coumadin was held all through her stay here and will be restarted from today. She has had consultation with Urology for suspicion of renal cyst which will be followed up by Dr. Khoi Krishna in his office. As patient had positive stool occult x1 with her being on Coumadin, Gastroenterology consultation was requested. She has had both upper and lower endoscopy done, which has not shown any active bleeding. She needs to follow up with Dr. Florian Sauer, machine bobbin winder, in 2-3 weeks to follow up on the sessile polyp which was removed with histopathology findings/report. She is being discharged to inpatient rehab for deconditioning. She is otherwise hemodynamically stable and will be shortly discharged. Please see face to face documentation on [facility] for the day of discharge. A total of 35 minutes was spent on discharge plan. TRACY
[2017-07-13] MEDS ORDERED: Lidocaine 1% PF 5 ML VIAL ONE (15:53)
[2017-07-13] MEDS ORDERED: PROPOFOL 200 MG/20 ML VIAL ONE (15:53)
[2017-07-13 16:54] VITALS: BP 136/59; TEMP 97
[2017-07-14] MEDS ORDERED: Polyethylene Glycol 3350 17 GM Packet PO SCH (09:00)
--- NOTE | 2017-07-22 15:08 | EKG ---
Test Reason : Blood Pressure : / mmHG Vent. Rate : 053 BPM Atrial Rate : 053 BPM P-R Int : 156 ms QRS Dur : 094 ms QT Int : 512 ms P-R-T Axes : 052 002 031 degrees QTc Int : 480 ms Sinus bradycardia T wave abnormality, consider anterior ischemia Abnormal ECG Confirmed by MITCHELL MASSEY D.O. ([id number]), mapping editor WILMER GARVEY ([id number]) on 07/22/2017 3:07:45 PM Referred By: Confirmed By:MITCHELL MASSEY D.O.
== END 2017-07-13 17:48 | disposition swing bed (61) | DRG 813 ==
LOC: ERS 13:51 → 2NO 15:20
PROVIDERS: ADMIT Family Medicine; ATTEND Family Medicine
PROC: 0DJ08ZZ Inspection of Upper Intestinal Tract, Via Natural or Artificial Opening Endoscopic (ICD-10-PCS; principal; 2017-07-13)
PROC: 0DBM8ZX Excision of Descending Colon, Via Natural or Artificial Opening Endoscopic, Diagnostic (ICD-10-PCS; 2017-07-13)
DX: D68.32 Hemorrhagic disorder due to extrinsic circulating anticoagulants (principal); J96.01 Acute respiratory failure with hypoxia; I50.33 Acute on chronic diastolic (congestive) heart failure; K92.2 Gastrointestinal hemorrhage, unspecified; N39.0 Urinary tract infection, site not specified; N12 Tubulo-interstitial nephritis, not specified as acute or chronic; N28.1 Cyst of kidney, acquired; I25.2 Old myocardial infarction; I48.2 Chronic atrial fibrillation; D64.9 Anemia, unspecified; E11.9 Type 2 diabetes mellitus without complications; E78.5 Hyperlipidemia, unspecified; F32.9 Major depressive disorder, single episode, unspecified; G47.00 Insomnia, unspecified; I25.10 Atherosclerotic heart disease of native coronary artery without angina pectoris; K57.30 Diverticulosis of large intestine without perforation or abscess without bleeding; K63.5 Polyp of colon; K64.4 Residual hemorrhoidal skin tags; I11.0 Hypertensive heart disease with heart failure; T45.515A Adverse effect of anticoagulants, initial encounter; Z79.01 Long term (current) use of anticoagulants; Z88.6 Allergy status to analgesic agent; Z88.0 Allergy status to penicillin; Z88.2 Allergy status to sulfonamides; Z88.8 Allergy status to other drugs, medicaments and biological substances; F41.9 Anxiety disorder, unspecified; Z86.73 Personal history of transient ischemic attack (TIA), and cerebral infarction without residual deficits; H35.30 Unspecified macular degeneration; R32 Unspecified urinary incontinence; Z96.641 Presence of right artificial hip joint
CPT/HCPCS: 36415; 36416; 71045; 71046; 76770; 80048; 80053; 81003; 81015; 82274; 82553; 84484; 85007; 85025; 85027; 85610; 85730; 87086; 88305; 90471; 90670; 93005; 93798; A4216; G0009; G8978-GP-CI; G8978-GP-CJ; G8979-GP-CI; G8980-GP-CI; G8987-GO-CI; G8987-GO-CK; G8988-GO-CI; G8989-GO-CI; J0696; J1940; J2001; J2405; J2704

== ENCOUNTER 2017-08-26 07:33 | Outpatient (CLI) | payer MEDICARE | END 2017-08-26 07:34 | disposition home or self-care (01) | LOC: CP 07:33 | PROVIDERS: ATTEND Internal Medicine | DX: R06.09 Other forms of dyspnea (principal) | CPT/HCPCS: 94010; 94727; 94729 ==

== ENCOUNTER 2018-03-06 15:21 | Inpatient (IN) | payer MEDICARE, MEDICAID ==
--- NOTE | 2018-03-06 15:56 | RAD ---
PORTABLE CHEST 1 VIEW: Date: 03/06/18 Time: 1549 hours HISTORY: Palpitations. FINDINGS/IMPRESSION: The heart is enlarged. The aorta is tortuous. The lungs are well expanded with pulmonary vascular con gestion. No lobar consolidation, pneumothoraces, or large effusions are seen. POS: [facility]
[2018-03-06 16:01] LABS: #Eosinphils 0.5 thou/uL (0.0-0.7); #Lymphocytes 1.6 thou/uL (1.20-3.40); #Monocytes 0.5 thou/uL (0.11-0.59); #Neutrophils 5.4 thou/uL (1.40-6.50); %Basophils 0.6 % (0.0-1.0); %Eosinophils 6.4 % (0.0-10.0); %Lymphocytes 20.1 % (21.0-51.0); %Monocytes 6.6 % (0.0-10.0); %Neutrophils 66.3 % (42.0-75.0); Hemoglobin 11.5 g/dL (12.0-16.0); Mean Corpuscular HGB CONC 31.2 g/dL (32.0-36.0); Mean Corpuscular Hemoglobin 27.8 pg (27.0-31.0); Mean Platelet Volume 6.4 fL (7.4-10.4); Platelet Count 310 thou/uL (130-400); RBC Distribution Width 13.1 % (11.5-14.5); Red Blood Cell (RBC) Count 4.13 mill/uL (4.20-5.40); White Blood Cell (WBC) Count 8.2 thou/uL (4.8-10.8)
[2018-03-06 16:30] LABS: CKMB 1.2 ng/mL (0-6.6); Troponin I Less than 0.010 ng/mL (< 0.028)
[2018-03-06 16:45] LABS: ALT (SGPT) 13 U/L (8-55); AST (SGOT) 20 U/L (5-34); Albumin 3.5 g/dL (3.4-4.8); Alkaline Phosphatase 105 U/L (40-150); Anion Gap 14 mmol/L (10-20); BUN (Urea Nitrogen) 9 mg/dL (9.8-20.1); Bilirubin, Total 0.5 mg/dL (0.2-1.2); CK (CPK) 26 U/L (29-168); Calc. Creatinine Clearance 0 mL/min (70-130); Calcium 9.1 mg/dL (7.8-10.44); Carbon Dioxide 27 mmol/L (23-31); Chloride 104 mmol/L (98-107); Estimated GFR-MDRD 69; Globulin 3.9 g/dL (2.4-3.5); Glucose 95 mg/dL (83-110); Potassium 4.7 mmol/L (3.5-5.1); Protein, Total 7.4 g/dL (6.0-8.3); Sodium 140 mmol/L (136-145)
[2018-03-06] MEDS ORDERED: Diltiazem 125 MG/25 ML ONE (17:16)
[2018-03-06 17:50] LABS: INR-International Normal Ratio 1.9; PTT 43.6 SEC (22.9-36.1); Prothrombin Time 21.5 SEC (12.0-14.7)
[2018-03-06] MEDS ORDERED: Acetaminophen 325 MG TAB PO PRN (18:03)
[2018-03-06] MEDS ORDERED: Senokot S 8.6-50 MG TAB PO PRN (18:03)
[2018-03-06] MEDS ORDERED: Diltiazem 125 MG in Sodium Chloride 0.9% 100 ML IVPB SCH (18:15)
[2018-03-06] MEDS ORDERED: Furosemide 20 MG/2 ML VIAL SLOW IVP SCH (18:15)
[2018-03-06] MEDS ORDERED: Metoprolol Tartrate 25 MG TAB PO SCH (18:30)
[2018-03-06 18:45] LABS: INR-International Normal Ratio 1.8; PTT 46.6 SEC (22.9-36.1); Prothrombin Time 21.2 SEC (12.0-14.7)
[2018-03-06 19:10] LABS: Troponin I Less than 0.010 ng/mL (< 0.028)
[2018-03-06] MEDS: Gabapentin 100 MG CAP PO SCH (20:16)
[2018-03-06] MEDS: Apixaban 5 MG TAB PO SCH (20:16)
[2018-03-06] MEDS: Pravastatin Sodium 40 MG TAB PO SCH (20:16)
[2018-03-06] MEDS: Mirtazapine 15 MG TAB PO SCH (20:17)
[2018-03-06] MEDS: HYDROcodone/Acetaminophen 10/325 mg Tablet PO PRN (20:19)
[2018-03-06 22:33] LABS: Troponin I Less than 0.010 ng/mL (< 0.028)
--- NOTE | 2018-03-06 22:34 | HP ---
CHIEF COMPLAINT: Generalized weakness. HISTORY OF PRESENT ILLNESS: The patient is a 77-year-old female with a history of atrial fibrillatio n, hypertension and history of coronary artery disease, history of type 2 diabetes, hypertension, dep ression, urinary incontinence, TIA, and multiple UTI who presents to the hospital with complaints of generalized weakness. Patient's is at the bedside stated that patient was brought into the hosp ital since today she was visited by a home nurse who found her heart rate to be in the 140s. The pat ient herself stated that she has been having weakness for the past couple of weeks. She has not been very active for the past couple of weeks due to just not feeling well. When the nurse came to check on her today found her heart rates to be in the 140s and at this time she was transferred into the ospital. The patient in the ER was given 10 of Cardizem, which improved her heart rate. The patient also states that she has been taking her medications; however, has been drinking a lot of water and feels that she has been gaining weight. Patient initially was on amiodarone; however, was taken off of amiodarone 3 months ago since it caused her to have pulmonary fibrosis and currently she is on 2-3 liters of oxygen on a regular basis. PAST MEDICAL HISTORY: 1. Coronary artery disease. 2. Type 2 diabetes. 3. Hypertension. 4. Dyslipidemia. 5. Depression. 6. Anxiety. 7. Urinary incontinence. 8. TIA. 9. UTIs. PAST SURGICAL HISTORY: 1. Right hip replacement. 2. Right knee replacement. 3. Bilateral cataract removal. 4. Appendectomy. 5. Cholecystectomy. 6. Hysterectomy. 7. Pulmonary vein isolation. SOCIAL HISTORY: She has never smoked. She used to drink 1-2 beers every day for a long time. How er, she does not currently do that. She denies any illicit drug use. ALLERGIES: She is allergic to PENICILLIN, SULFA and LEVAQUIN. FAMILY HISTORY: Family history of diabetes, both mother and father. MEDICATIONS: Her list is as of the following; she takes metoprolol 25 mg daily, Colace 100 mg b.i.d. , Gem 1 tab q.6 hours p.r.n., she is on metformin 1000 mg daily, she is on MiraLax 17 grams p.o. da ute, she is also taking warfarin 2.5 mg daily, Lasix 20 mg daily, vitamin D3 1000 units daily, Cymbal ta 30 mg daily, ferrous sulfate 325 daily, folic acid 1 mg daily, gabapentin 100 mg t.i.d., mirtazapi ne 50 mg at bedtime, pantoprazole 40 mg daily, and pravastatin 40 mg daily. REVIEW OF SYSTEMS: All negative except for the ones mentioned above in the HPI. PHYSICAL EXAMINATION: VITAL SIGNS: Temperature of 98.7, heart rates in 90s, blood pressure is 113/90, respirations are 16, she is 97% on 3 liters. GENERAL: She is awake, alert, and oriented x3, does not appear in any distress. CARDIOVASCULAR: S1, S2 present, she is irregularly irregular. LUNGS: Decreased breath sounds to lower lung area. She does have some mild crackles noted to the lo wer bases bilaterally. ABDOMEN: Soft and nontender. Bowel sounds are present x2. EXTREMITIES: No edema. Pedal pulses are present x2. LABORATORY DATA AND IMAGING DATA: Her laboratory results are as of the following; WBCs of 8.2, hemog lobin 11.5, hematocrit of 36.8 and platelets of 310. Chemistry: Sodium of 140, potassium of 4.7, BU N of 9, creatinine of 0.80. Her troponin x2 was negative. I did not have a BNP ordered and I will o rder a BNP for her chest x-ray. Upon my interpretation, it appears that she does have bilateral righ t worse than left pulmonary effusion. ASSESSMENT AND PLAN: The patient is a very pleasant 77-year-old female who presents to the hospital with generalized weakness 1. Atrial fibrillation with rapid ventricular response. The patient was symptomatic from her atrial fibrillation, which was causing her to feel weak. She is currently after 10 mg of Cardizem, her hea rt rates in the 90s. We will start patient on 25 mg of metoprolol b.i.d. and I will give her a dose now. We will also consult Cardiology. We will repeat her echocardiogram since her last echocardiogr am was in 2017. She also had a cardiac catheterization in 2017. There were no interventions were ne cessary for this patient. 2. History of diabetes. We will put her on sliding scale and also do Accu-Cheks. 3. History of hypertension. Currently, she is doing fairly well and we will continue with metoprolo l. 4. History of depression. We will continue her home medications. 5. Deep venous thrombosis prophylaxis. We will continue her Coumadin for now or may switch to Xarel to since patient's daughter has been wanting her to be on Xarelto.
[2018-03-06 22:46] VITALS: BMI 28.1
[2018-03-07] MEDS: HYDROcodone/Acetaminophen 10/325 mg Tablet PO PRN ×2 (02:58→21:09)
[2018-03-07 04:31] LABS: #Basophils 0.1 thou/uL (0.0-0.2); #Eosinphils 0.7 thou/uL (0.0-0.7); #Lymphocytes 1.8 thou/uL (1.20-3.40); #Monocytes 0.6 thou/uL (0.11-0.59); #Neutrophils 4.6 thou/uL (1.40-6.50); %Basophils 0.9 % (0.0-1.0); %Eosinophils 8.8 % (0.0-10.0); %Lymphocytes 23.5 % (21.0-51.0); %Monocytes 8.2 % (0.0-10.0); %Neutrophils 58.5 % (42.0-75.0); Hemoglobin 10.9 g/dL (12.0-16.0); Mean Corpuscular HGB CONC 30.6 g/dL (32.0-36.0); Mean Corpuscular Hemoglobin 27.2 pg (27.0-31.0); Mean Corpuscular Volume 88.9 fL (78.0-98.0); Mean Platelet Volume 6.6 fL (7.4-10.4); Platelet Count 292 thou/uL (130-400); RBC Distribution Width 13.3 % (11.5-14.5); White Blood Cell (WBC) Count 7.8 thou/uL (4.8-10.8)
[2018-03-07 04:42] LABS: Anion Gap 11 mmol/L (10-20); BUN (Urea Nitrogen) 9 mg/dL (9.8-20.1); Calc. Creatinine Clearance 69 mL/min (70-130); Calcium 9.1 mg/dL (7.8-10.44); Carbon Dioxide 31 mmol/L (23-31); Chloride 100 mmol/L (98-107); Estimated GFR-MDRD 75; Glucose 118 mg/dL (83-110); Potassium 3.9 mmol/L (3.5-5.1); Sodium 138 mmol/L (136-145)
[2018-03-07] MEDS ORDERED: Metoprolol Tartrate 25 MG TAB PO SCH ×3 (09:00→21:00)
[2018-03-07] MEDS: Apixaban 5 MG TAB PO SCH (09:05)
[2018-03-07] MEDS: Folic Acid 1 MG TAB PO SCH (09:13)
[2018-03-07] MEDS: Furosemide 20 MG/2 ML VIAL SLOW IVP SCH (09:13)
[2018-03-07] MEDS: Ferrous Sulfate 325 MG TAB PO SCH (09:13)
[2018-03-07] MEDS: DULoxetine 30 MG CAP PO SCH (09:13)
[2018-03-07] MEDS: Gabapentin 100 MG CAP PO SCH ×3 (09:13→23:02)
[2018-03-07] MEDS: Polyethylene Glycol 3350 17 GM Packet PO SCH (09:14)
--- NOTE | 2018-03-07 12:01 | PDOC.PN ---
- Subjective Encounter Start Date: 03/07/18 Encounter Start Time: 10:30 Subjective: pt up in bed no complains - Objective Resuscitation Status: Resuscitation Status FULL:Full Resuscitation Vital Signs & Weight: Vital Signs (12 hours) Temp Pulse Resp BP Pulse Ox 03/07/18 11:44 98.1 F 112 H 16 133/97 H 99 03/07/18 08:00 98 F 115 H 16 144/97 H 98 03/07/18 05:59 97.8 F 105 H 17 119/87 95 Weight Weight 159 lb 2 oz I&O: 03/06/18 03/07/18 03/08/18 06:59 06:59 06:59 Intake Total 700 Output Total 500 Balance 200 Result Diagrams: 03/07/18 03:25 03/07/18 03:25 Additional Labs: Accuchecks 03/07/18 03/07/18 11:11 06:10 POC Glucose 126 H 102 Phys Exam - Physical Examination Neck: no nodes, no JVD, supple, full ROM Respiratory: no wheezing, no rales, no rhonchi, wheezing present, clear to auscultation bilateral Cardiovascular: RRR, no significant murmur, no rub, gallop, irregular Gastrointestinal: soft, non-tender, no distention, positive bowel sounds Dx/Plan (1) Atrial fibrillation with RVR Code(s): I48.91 - UNSPECIFIED ATRIAL FIBRILLATION Status: Acute (2) HTN (hypertension) Code(s): I10 - ESSENTIAL (PRIMARY) HYPERTENSION Status: Chronic Qualifiers: Hypertension type: essential hypertension Qualified Code(s): I10 - Essential (primary) hypertension (3) HLD (hyperlipidemia) Code(s): E78.5 - HYPERLIPIDEMIA, UNSPECIFIED Status: Chronic Qualifiers: Hyperlipidemia type: unspecified Qualified Code(s): E78.5 - Hyperlipidemia , unspecified - Plan pt's heart rate is still mildly elevated will increase her dose of lopresso -: pt wanted DOAC eliquis started last night. -: cardiology to see pt -: echo ordered * . Review of Systems - Review of Systems Respiratory: negative: Cough, Dry, Shortness of Breath, Hemoptysis, SOB with Excertion, Pleuritic Pain, Sputum, Wheezing Cardiovascular: negative: chest pain, palpitations, orthopnea, paroxysmal nocturnal dyspnea, edema, light headedness, other Gastrointestinal: negative: Nausea, Vomiting, Abdominal Pain, Diarrhea, Constipation, Melena, Hematochezia, Other Genitourinary: negative: Dysuria, Frequency, Incontinence, Hematuria, Retention , Other - Medications/Allergies Allergies/Adverse Reactions: Allergies Allergy/AdvReac Type Severity Reaction Status Date / Time levofloxacin Allergy Intermediate Rash Verified 02/04/17 08:47 cyclobenzaprine Allergy Verified 02/04/17 08:47 [From Flexeril] Penicillins Allergy Verified 02/04/17 08:47 Sulfa (Sulfonamide Allergy Verified 02/04/17 08:47 Antibiotics) Medications: Current Medications Acetaminophen (Tylenol) 650 mg PO Q4H PRN PRN Reason: Headache/Fever/Mild Pain (1-3) Hydrocodone Bitart/Acetaminophen ([place] 10/325) 1 tab PO Q6H PRN PRN Reason: Moderate to Severe Pain (6-10) Last Admin: 03/07/18 02:58 Dose: 1 tab Apixaban (Eliquis) 5 mg PO BID [facility] Last Admin: 03/06/18 20:16 Dose: 5 mg Cholecalciferol (Vitamin D3) 1,000 units PO QAM [facility] Last Admin: 03/07/18 09:13 Dose: 1,000 units Duloxetine HCl (Cymbalta) 30 mg PO DAILY [facility] Last Admin: 03/07/18 09:13 Dose: 30 mg Ferrous Sulfate (Feosol) 325 mg PO DAILY [facility] Last Admin: 03/07/18 09:13 Dose: 325 mg Folic Acid (Folvite) 1 mg PO DAILY [facility] Last Admin: 03/07/18 09:13 Dose: 1 mg Furosemide (Lasix) 20 mg SLOW IVP DAILY [facility] Last Admin: 03/07/18 09:13 Dose: 20 mg Gabapentin (Neurontin) 100 mg PO TID [facility] Last Admin: 03/07/18 09:13 Dose: 100 mg Metoprolol Tartrate (Lopressor) 25 mg PO BID [facility] Last Admin: 03/07/18 09:13 Dose: 25 mg Mirtazapine (Remeron) 15 mg PO HS [facility] Last Admin: 03/06/18 20:17 Dose: 15 mg Pantoprazole Sodium (Protonix) 40 mg PO DAILY [facility] Last Admin: 03/07/18 09:13 Dose: 40 mg Polyethylene Glycol (Miralax) 17 gm PO DAILY [facility] Last Admin: 03/07/18 09:14 Dose: Not Given Pravastatin Sodium (Pravachol) 40 mg PO HS [facility] Last Admin: 03/06/18 20:16 Dose: 40 mg Senna/Docusate Sodium (Senokot S) 2 tab PO BIDPRN PRN PRN Reason: Constipation Sodium Chloride (Flush - Normal Saline) 10 ml IVF Q12HR [facility] Last Admin: 03/07/18 09:14 Dose: 10 ml Sodium Chloride (Flush - Normal Saline) 10 ml IVF PRN PRN PRN Reason: Saline Flush
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
[2018-03-07] MEDS: Mirtazapine 15 MG TAB PO SCH (21:12)
[2018-03-07] MEDS: Pravastatin Sodium 40 MG TAB PO SCH (21:12)
[2018-03-07] MEDS: Metoprolol Tartrate 25 MG TAB PO SCH (21:12)
[2018-03-08 05:45] LABS: Hemoglobin 11.3 g/dL (12.0-16.0); Platelet Count 310 thou/uL (130-400)
[2018-03-08 08:49] VITALS: TEMP 97.8
[2018-03-08] MEDS: Furosemide 20 MG/2 ML VIAL SLOW IVP SCH (08:50)
[2018-03-08] MEDS: Gabapentin 100 MG CAP PO SCH ×2 (08:50→18:12)
[2018-03-08] MEDS: Folic Acid 1 MG TAB PO SCH (08:50)
[2018-03-08] MEDS: DULoxetine 30 MG CAP PO SCH (08:50)
[2018-03-08] MEDS: Metoprolol Tartrate 25 MG TAB PO SCH ×2 (08:51→18:13)
[2018-03-08] MEDS: Ferrous Sulfate 325 MG TAB PO SCH (08:51)
[2018-03-08] MEDS: Polyethylene Glycol 3350 17 GM Packet PO SCH (08:51)
[2018-03-08] MEDS ORDERED: Rivaroxaban 10 MG TAB PO SCH (09:00)
[2018-03-08] MEDS ORDERED: Lisinopril 10 MG TAB PO SCH (10:30)
--- NOTE | 2018-03-08 12:07 | PQF ---
CLINICAL DOCUMENTATION IMPROVEMENT CLARIFICATION FORM: ICD-10 Updated PLEASE DO AN ADDENDUM TO THE PROGRESS NOTE WITH ANY DOCUMENTATION UPDATES OR ADDITIONS AND CARRY THROUGH TO DC SUMMARY. THANK YOU. DATE: 03/08/18 ATTN: DR. CARY Please exercise your independent, professional judgment in responding to the clarification form. Clinical indicators are provided on the bottom of this form for your review Please check appropriate box(s): [ ] Acute Respiratory Failure: [ ] with Hypoxia[ ] with Hypercapnia [ ] Acute On Chronic Respiratory Failure: [ ] with Hypoxia [ ] with Hypercapnia [ ] Chronic Respiratory Failure only [ ] with Hypoxia [ ] with Hypercapnia [ ] Other diagnosis [x ] Unable to determine In addition, please specify: Present on Admission (POA): [ ] Yes [ ] No [ x] Unable to determine For continuity of documentation, please document condition throughout progress notes and discharge summary. Thank You. CLINICAL INDICATORS - SIGNS / SYMPTOMS / LABS H&P: "SHE IS ON 2-3 LITERS OF OXYGEN ON A REGULAR BASIS." "DECREASED BREATH SOUNDS TO LOWER LUNG AREA. SHE DOES HAVE SOME MILD CRACKLES NOTED TO THE LOWER BASES BILATERALLY." RISKS: AFIB H/O PULMONARY FIBROSIS TREATMENT: IV LASIX (03/07-PRESENT) SUPPLEMENTAL OXYGEN TELEMETRY MONITORING (This form is maintained as a part of the permanent medical record) 2014 [employer]. All Rights Reserved [email or web address] [email or web address] Office: [phone] MTDD
[2018-03-08 18:14] VITALS: BP 156/90
--- NOTE | 2018-03-09 03:40 | DIS ---
DATE OF ADMISSION: 03/06/2018 DATE OF DISCHARGE: 03/08/2018 DISCHARGE DIAGNOSES: As of the followin. Atrial fibrillation with rapid ventricular response. 2. Hypertension. 3. Hyperlipidemia. HOSPITAL COURSE: Patient is a very pleasant 77-year-old female who has been very depressed and she l ost her 3 months ago, who presented to the hospital for generalized weakness. Patient was fo und to be in atrial fibrillation RVR. At this time, initially, she was given Cardizem 10 mg IV push, which improved her rate dramatically. Patient was on Lopressor initially, she was on 25 mg daily, w hich was changed to 25 mg b.i.d. and then increased to 50 mg b.i.d. Patient was seen by Cardiology. No intervention was noted. She did have an echocardiogram, which indicated an EF of 40% to 45% with mild enlarged right ventricular cavity and moderate mitral regurgitation. Patient continued to be a symptomatic. She was told by the hat former that she will be discharged today, waiting for cardiofrandy costello's final recommendation; however, from medical standpoint, she is stable to go home. Her home med ications are iron 325 daily, folic acid 1 mg daily, lisinopril 10 mg daily, Lopressor 50 mg b.i.d., X arelto 20 mg daily, furosemide 20 mg q.a.m., gabapentin 300 mg t.i.d., Remeron 30 mg at bedtime, Prot quirino 40 mg daily, pravastatin 40 mg at bedtime, Cymbalta 60 mg b.i.d., metformin 1000 mg daily, stool softeners 100 mg b.i.d. Patient has been seen and examined. I did speak with her at [facility]. Patient states that she has been very depressed and has not been taking very good care of hers elf; however, she promised that she will continue to take all her medications and also will follow up with her primary care doctors also.
[2018-03-09] MEDS ORDERED: Lisinopril 10 MG TAB PO SCH (09:00)
--- NOTE | 2018-03-20 19:54 | EKG ---
Test Reason : Blood Pressure : / mmHG Vent. Rate : 126 BPM Atrial Rate : 141 BPM P-R Int : 000 ms QRS Dur : 086 ms QT Int : 330 ms P-R-T Axes : 000 042 027 degrees QTc Int : 477 ms Atrial fibrillation with rapid ventricular response Nonspecific ST and T wave abnormality , probably digitalis effect Abnormal ECG Confirmed by YVONNE CHAUDHARY DO ([id number]), general expeditor WILMER GARVEY ([id number]) on 03/20/2018 7:53:21 PM Referred By: Confirmed By:YVONNE CHAUDHARY DO
== END 2018-03-08 18:30 | disposition home or self-care (01) | DRG 310 ==
LOC: ERS 15:21 → 2NO 18:14
PROVIDERS: ADMIT Internal Medicine; ATTEND Internal Medicine
DX: I48.91 Unspecified atrial fibrillation (principal); I10 Essential (primary) hypertension; E78.5 Hyperlipidemia, unspecified; I25.10 Atherosclerotic heart disease of native coronary artery without angina pectoris; E11.9 Type 2 diabetes mellitus without complications; Z86.73 Personal history of transient ischemic attack (TIA), and cerebral infarction without residual deficits; F32.9 Major depressive disorder, single episode, unspecified
CPT/HCPCS: 36415; 36416; 71045; 80048; 80053; 82550; 82553; 82565; 83880; 84484; 85014; 85018; 85025; 85049; 85610; 85730; 93005; 93306; 94760; 96374; G8978-GP-CJ; G8979-GP-CI; J1940; J7050

== ENCOUNTER 2018-06-29 16:34 | Inpatient (IN) | payer MEDICARE, MEDICAID ==
[2018-06-29 17:21] LABS: #Eosinphils 0.2 thou/uL (0.0-0.7); #Lymphocytes 1.2 thou/uL (1.20-3.40); #Monocytes 0.5 thou/uL (0.11-0.59); #Neutrophils 5.1 thou/uL (1.40-6.50); %Basophils 0.3 % (0.0-1.0); %Eosinophils 3.3 % (0.0-10.0); %Lymphocytes 17.1 % (21.0-51.0); %Monocytes 6.7 % (0.0-10.0); %Neutrophils 72.5 % (42.0-75.0); Hemoglobin 13.7 g/dL (12.0-16.0); Mean Corpuscular HGB CONC 30.7 g/dL (32.0-36.0); Mean Corpuscular Hemoglobin 30.1 pg (27.0-31.0); Mean Corpuscular Volume 98.1 fL (78.0-98.0); Platelet Count 251 thou/uL (130-400); RBC Distribution Width 14.9 % (11.5-14.5); Red Blood Cell (RBC) Count 4.55 mill/uL (4.20-5.40); White Blood Cell (WBC) Count 7.1 thou/uL (4.8-10.8)
[2018-06-29 17:29] LABS: INR-International Normal Ratio 1.7; Prothrombin Time 20.2 SEC (12.0-14.7)
[2018-06-29 17:30] LABS: PTT 45.8 SEC (22.9-36.1)
[2018-06-29 17:42] LABS: ALT (SGPT) 17 U/L (8-55); AST (SGOT) 29 U/L (5-34); Albumin 3.9 g/dL (3.4-4.8); Alkaline Phosphatase 123 U/L (40-150); Anion Gap 15 mmol/L (10-20); BUN (Urea Nitrogen) 11 mg/dL (9.8-20.1); Bilirubin, Total 1.1 mg/dL (0.2-1.2); Calc. Creatinine Clearance 0 mL/min (70-130); Calcium 9.5 mg/dL (7.8-10.44); Carbon Dioxide 30 mmol/L (23-31); Chloride 98 mmol/L (98-107); Estimated GFR-MDRD 69; Globulin 3.7 g/dL (2.4-3.5); Glucose 129 mg/dL (83-110); Potassium 4.1 mmol/L (3.5-5.1); Protein, Total 7.6 g/dL (6.0-8.3); Sodium 139 mmol/L (136-145)
--- NOTE | 2018-06-29 18:51 | ULT ---
BILATERAL LOWER EXTREMITY VENOUS DUPLEX EXAM: History: Bilateral leg pain and swelling. FINDINGS: Real-time color doppler evaluation of the right and left lower extremities were performed from groin to calf. This includes evaluation of the common femoral, superficial and profunda femoral, saphenous, popliteal and posterior tibial veins. This shows patent deep venous systems bilaterally. There is no rmal compressibility and augmentation. There is no evidence of DVT. IMPRESSION: No evidence of DVT of either lower extremity. POS: [facility]
--- NOTE | 2018-06-29 18:54 | RAD ---
PORTABLE AP CHEST X-RAY 06/29/18 HISTORY: Edema to bilateral lower extremities, progressively worse over last two weeks. COMPARISON: 03/06/18. FINDINGS: The cardiac silhouette is enlarged. There is increased bilateral perihilar interstitial densities wit h patchy parenchymal change at the lateral aspect of the lung bases bilaterally. These findings may b e related to asymmetric pulmonary edema. Superimposed infectious process cannot be entirely excluded. Pulmonary vasculature is at the upper limits of normal and similar to prior exam. Vascular calcifica tions seen in the thoracic aorta. No other interval change. IMPRESSION: 1. Cardiomegaly with bilateral interstitial densities which could be on the basis of asymmetric pulmonary edema. Patchy parenchymal changes at the lateral aspect of each lung base could also be rel ated to asymmetric pulmonary edema or secondary to infectious process. Followup examination is recomm ended. 2. Loop recording device overlying the left lower chest and upper abdomen. POS: [facility]
[2018-06-29] MEDS ORDERED: Furosemide 40 MG/4 ML VIAL ONE (18:56)
[2018-06-29] MEDS ORDERED: Furosemide 40 MG TAB ONE (18:56)
[2018-06-29] MEDS ORDERED: Acetaminophen 325 MG TAB PO PRN (22:58)
[2018-06-29] MEDS ORDERED: Acetaminophen 325 MG TAB ONE (23:43)
[2018-06-30] MEDS ORDERED: Guaifenesin DM 100-10/5 ML UDCUP PO PRN (01:39)
[2018-06-30] MEDS ORDERED: HYDROcodone/Acetaminophen 10/325 mg Tablet PO PRN (01:39)
[2018-06-30] MEDS ORDERED: Acetaminophen 325 MG TAB PO PRN (01:39)
[2018-06-30] MEDS ORDERED: Senokot S 8.6-50 MG TAB PO PRN (01:39)
--- NOTE | 2018-06-30 02:28 | HP ---
REASON FOR ADMISSION: Acute CHF exacerbation. HISTORY OF PRESENTING ILLNESS: The patient gives history of having shortness of breath even on minimal exertion and increasing lower extremity edema from last 2 weeks. She had an appointment to see Dr. Elias Mcnamara, her primary care physician, but got the address wrong and happened to go late for her appointment and could not see him. As she has not been ambulating from last 2 weeks due to worsening shortness of breath and lower extremity edema, the patient made it to the emergency room here. No complaints of chest pain or palpitation. She has mostly dry coughing spells. No fever. No flu-like illness. PAST MEDICAL AND SURGICAL HISTORY: History of CHF with systolic dysfunction and ejection fraction of around 40%. She also has diastolic dysfunction and moderate aortic stenosis; hypertension; dyslipidemia; chronic atrial fibrillation, on Xarelto; diabetes mellitus type 2; prior history of TIA; right hip replacement; right knee replacement; bilateral cataract surgery; appendectomy; cholecystectomy; hysterectomy; depression; and urinary incontinence. 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 CURRENT MEDICATIONS: The patient is on; 1. [place] p.r.n. for pain. 2. Colace 100 mg p.o. twice daily. 3. Protonix 40 mg p.o. daily. 4. Remeron 30 mg p.o. at bedtime. 5. Zofran p.r.n. 6. Potassium chloride 20 mEq p.o. twice daily. 7. Gabapentin 300 mg p.o. 3 times daily. 8. Lasix 20 mg daily. 9. Metformin 1000 mg p.o. daily. 10. Pravastatin 40 mg p.o. daily. 11. Estradiol 0.5 mg p.o. daily. 12. Cymbalta 60 mg twice daily. 13. Metoprolol 50 mg twice daily. 14. Xarelto 20 mg p.o. daily. 15. Lisinopril 10 mg p.o. daily. ALLERGIES: ALLERGIC TO FLEXERIL, PENICILLIN, AND SULFA. PERSONAL HISTORY: Does not abuse alcohol or drugs. No history of smoking. FAMILY HISTORY: Mother in her 70s. She had history of coronary artery disease. Father in his 70s too and had history of emphysema. CODE STATUS: Full. REVIEW OF SYSTEMS: CONSTITUTIONAL: Negative for weight loss or gain, ability to conduct usual activities. SKIN: Negative for rash, itching. EYES: Negative for double vision, pain. ENT/MOUTH: Negative for nose bleeding, neck stiffness, pain, tenderness. CARDIOVASCULAR: Negative for palpitations, dyspnea on exertion, orthopnea. RESPIRATORY: Negative for shortness of breath, wheezing, cough, hemoptysis, fever or night sweats. GASTROINTESTINAL: Negative for poor appetite, abdominal pain, heartburn, nausea , vomiting, constipation, or diarrhea. GENITOURINARY: Negative for urgency, frequency, dysuria, nocturia. MUSCULOSKELETAL: Negative for pain, swelling. NEUROLOGIC/PSYCHIATRIC: Negative for anxiety, depression. ALLERGY/IMMUNOLOGIC: Negative for skin rash, bleeding tendency. PHYSICAL EXAMINATION: GENERAL: The patient is a 77-year-old female, who is currently not in any acute distress. VITAL SIGNS: Blood pressure 130/80, pulse 100 per minute, respiratory rate 24 per minute, temperature 97.3 degrees Fahrenheit, saturating 97% on 2 L nasal cannula. NECK: Supple. There is elevated JVD. HEENT: Eyes; extraocular muscles intact. Pupils reacting to light. Oral cavity, mucous membranes are moist. No exudates or congestion. CARDIOVASCULAR SYSTEM: S1, S2 heard. Irregular rhythm. RESPIRATORY SYSTEM: Air entry 1+ bilateral. No rhonchi, but there are basal rales. ABDOMEN: Soft. Bowel sounds heard. No tenderness, rigidity, or guarding. EXTREMITIES: There is peripheral edema, 1+ bilateral. No ischemic ulcerations or gangrene. CENTRAL NERVOUS SYSTEM: No gross focal deficits noted. The patient is alert, awake, and oriented well. PSYCHIATRIC SYSTEM: The patient's mood is euthymic. No hallucinations or delusions. LABORATORY DATA: EKG done shows atrial fibrillation at 99 beats per minute. There is incomplete RBBB seen. White count of 7, H and H 13 and 44, platelet count 251, MCV is 98 with 72% neutrophils. INR 1.7, PTT 45. BUN 11, creatinine 0.8, serum bicarb 30, serum glucose 129. BNP 1824. Albumin is 3.9. Chest x-ray done shows cardiomegaly with bilateral pulmonary vascular congestion. Lower extremity venous Doppler done shows no evidence of DVT. CLINICAL IMPRESSION AND PLAN: The patient will be under observation on telemetry for acute on chronic congestive heart failure exacerbation with systolic and diastolic dysfunction. She will be on Lasix 40 mg IV at 6 and 2 p.m. The patient likely will need 3 more doses of Lasix prior to going home. She is severely deconditioned and has not been ambulating for the last 2 weeks due to the worsening exertional shortness of breath and lower extremity edema. We will consult Dr. Greenberg, her kindergartners helper, during her stay here. We will continue aspirin, Lipitor, Cymbalta, estradiol, folic acid, ferrous sulfate, gabapentin, [place], lisinopril, metformin, Lopressor, Remeron, Xarelto, and multivitamin as before. She has had a recent echo done in the month of February and this was reviewed. If needed she will be changed to inpatient status based on clinical response. The code status was discussed with the patient and she is a full code. Job ID: [id number] MTDD
[2018-06-30 03:34] LABS: #Basophils 0.1 thou/uL (0.0-0.2); #Eosinphils 0.3 thou/uL (0.0-0.7); #Lymphocytes 1.3 thou/uL (1.20-3.40); #Monocytes 0.8 thou/uL (0.11-0.59); #Neutrophils 4.4 thou/uL (1.40-6.50); %Eosinophils 3.7 % (0.0-10.0); %Lymphocytes 19.1 % (21.0-51.0); %Monocytes 11.1 % (0.0-10.0); %Neutrophils 65.1 % (42.0-75.0); Hemoglobin 12.7 g/dL (12.0-16.0); Mean Corpuscular HGB CONC 31.2 g/dL (32.0-36.0); Mean Corpuscular Hemoglobin 30.5 pg (27.0-31.0); Mean Corpuscular Volume 97.7 fL (78.0-98.0); Platelet Count 221 thou/uL (130-400); RBC Distribution Width 14.8 % (11.5-14.5); Red Blood Cell (RBC) Count 4.17 mill/uL (4.20-5.40); White Blood Cell (WBC) Count 6.8 thou/uL (4.8-10.8)
[2018-06-30 03:52] LABS: Anion Gap 13 mmol/L (10-20); BUN (Urea Nitrogen) 9 mg/dL (9.8-20.1); Calc. Creatinine Clearance 0 mL/min (70-130); Calcium 9.5 mg/dL (7.8-10.44); Carbon Dioxide 34 mmol/L (23-31); Chloride 98 mmol/L (98-107); Estimated GFR-MDRD 76; Glucose 118 mg/dL (83-110); Potassium 3.3 mmol/L (3.5-5.1); Sodium 142 mmol/L (136-145)
[2018-06-30] MEDS ORDERED: Acetaminophen 325 MG TAB ONE (08:25)
[2018-06-30] MEDS ORDERED: Furosemide 40 MG/4 ML VIAL ONE (08:36)
[2018-06-30] MEDS ORDERED: Aspirin Chewable 81 MG TAB ONE (10:04)
[2018-06-30] MEDS ORDERED: Metoprolol Tartrate 50 MG TAB ONE (10:15)
[2018-06-30] MEDS ORDERED: Folic Acid 1 MG TAB ONE (10:15)
[2018-06-30] MEDS ORDERED: Famotidine 20 MG TAB ONE (11:50)
[2018-06-30] MEDS: Aspirin Chewable 81 MG TAB PO SCH (13:30)
[2018-06-30] MEDS: Estradiol 1 MG TAB PO SCH (13:31)
[2018-06-30] MEDS: DULoxetine 60 MG CAP PO SCH ×2 (13:31→20:48)
[2018-06-30] MEDS: Docusate 100 MG CAP PO SCH ×2 (13:31→20:48)
[2018-06-30] MEDS: Famotidine 20 MG TAB PO SCH ×2 (13:32→20:49)
[2018-06-30] MEDS: Ferrous Sulfate 325 MG TAB PO SCH (13:32)
[2018-06-30] MEDS: Folic Acid 1 MG TAB PO SCH (13:33)
[2018-06-30] MEDS: Gabapentin 300 MG CAP PO SCH ×3 (13:33→20:49)
[2018-06-30] MEDS: Lisinopril 10 MG TAB PO SCH (13:34)
[2018-06-30] MEDS: metFORMIN 500 MG TAB PO SCH ×2 (13:35→20:48)
[2018-06-30] MEDS: Metoprolol Tartrate 50 MG TAB PO SCH ×2 (13:36→20:49)
[2018-06-30] MEDS: Vit A,C & E/Lutein/Minerals Tablet PO SCH (13:39)
[2018-06-30] MEDS: Rivaroxaban 10 MG TAB PO SCH (13:39)
[2018-06-30 13:40] VITALS: BMI 27.5
[2018-06-30] MEDS: Furosemide 40 MG/4 ML VIAL SLOW IVP SCH ×2 (14:25→16:03)
[2018-06-30] MEDS ORDERED: Zolpidem Tartrate 5 MG TAB PO PRN (18:01)
--- NOTE | 2018-06-30 19:07 | PDOC.PN ---
- Subjective Encounter Start Date: 06/30/18 Encounter Start Time: 19:06 Subjective: Seen and examined feeling better - Objective Resuscitation Status - Order Detail: 06/30/18 01:34 Resuscitation Status Routine Resuscitation Status: FULL: Full Resuscitation Vital Signs & Weight: Vital Signs (12 hours) Temp Pulse Pulse Pulse Resp BP BP 06/30/18 16:07 97.3 F L 89 18 133/84 06/30/18 13:30 97.5 F L 87 18 125/90 06/30/18 11:14 96 111 H 135/85 Pulse Ox Pulse Ox Pulse Ox 06/30/18 16:07 95 06/30/18 13:30 94 L 06/30/18 11:14 97 96 Weight Weight 155 lb 5 oz I&O: 06/29/18 06/30/18 07/01/18 06:59 06:59 06:59 Intake Total 240 360 Output Total 700 Balance -460 360 Result Diagrams: 06/30/18 03:11 06/30/18 03:11 Additional Labs: Accuchecks 06/30/18 06/30/18 17:16 06:02 POC Glucose 111 H 134 H Phys Exam - Physical Examination Constitutional: NAD HEENT: PERRLA, moist MMs, sclera anicteric, TM's clear, oral pharynx no lesions Neck: no nodes, no JVD, supple Respiratory: no wheezing, no rales, no rhonchi, clear to auscultation bilateral Cardiovascular: RRR, no significant murmur, no rub Gastrointestinal: non-tender, no distention, positive bowel sounds Musculoskeletal: pulses present, edema present Dx/Plan (1) Hypokalemia Code(s): E87.6 - HYPOKALEMIA Status: Acute (2) CHF (congestive heart failure) Code(s): I50.9 - HEART FAILURE, UNSPECIFIED Status: Acute Qualifiers: (3) Depression Code(s): F32.9 - MAJOR DEPRESSIVE DISORDER, SINGLE EPISODE, UNSPECIFIED Status : Acute (4) Atrial fibrillation Code(s): I48.91 - UNSPECIFIED ATRIAL FIBRILLATION Status: Chronic Qualifiers: (5) HLD (hyperlipidemia) Code(s): E78.5 - HYPERLIPIDEMIA, UNSPECIFIED Status: Chronic Qualifiers: (6) HTN (hypertension) Code(s): I10 - ESSENTIAL (PRIMARY) HYPERTENSION Status: Chronic Qualifiers: - Plan PT/OT, medical social worker, respiratory therapy Parenteral diuresis -: Replete potassium -: Convert to in patient * .
[2018-06-30] MEDS: Mirtazapine 15 MG TAB PO SCH (20:49)
[2018-06-30] MEDS: Atorvastatin Calcium 10 MG TAB PO SCH (20:49)
--- NOTE | 2018-06-30 20:51 | CON ---
DATE OF CONSULTATION: 06/30/2018 PRIMARY MACHINIST BRAKE: Lan Greenberg MD HISTORY OF PRESENT ILLNESS: Ms. Arboleda is a pleasant 77-year-old white female, who comes to the hospital for increased shortness of breath. She has a history of diastolic heart failure with EF about 40%. She noted that for the last week, she has been slowly gaining weight and having increasing lower extremity edema, to the point where she could not breathe anymore and she could not walk without getting extremely short of breath. She also has noted a lot of cough in this timeframe. She was evaluated in the ER and found to be in heart failure, so she was admitted for IV diuresis. She is already feeling a little bit better after getting some IV Lasix. PAST MEDICAL HISTORY: 1. Systolic heart failure with EF of 40%. 2. Diastolic heart failure. 3. Moderate aortic stenosis. 4. Hypertension. 5. Hyperlipidemia. 6. Chronic atrial fibrillation, on chronic anticoagulation, Xarelto. 7. Type 2 diabetes. 8. TIAs in the past. PAST SURGICAL HISTORY: 1. Right hip replacement. 2. Right knee replacement. 3. Bilateral cataract surgery. 4. Appendectomy. 5. Cholecystectomy. 6. Hysterectomy. OUTPATIENT MEDICATIONS: 1. [place] p.r.n. 2. Colace. 3. Protonix. 4. Remeron. 5. Zofran. 6. Potassium chloride 20 mEq twice a day. 7. Gabapentin. 8. Lasix 20 mg a day. 9. Metformin. 10. Pravastatin 40 mg at bedtime. 11. Estradiol. 12. Cymbalta. 13. Metoprolol 50 mg twice a day. 14. Xarelto 20 mg at bedtime. 15. Lisinopril 10 mg a day. ALLERGIES: FLEXERIL, PENICILLIN, AND SULFA DRUGS. SOCIAL HISTORY: No alcohol, tobacco, or drugs. FAMILY HISTORY: Noncontributory. REVIEW OF SYSTEMS: Twelve-point review of systems was done and was all negative unless stated in the history of present illness. PHYSICAL EXAMINATION: VITAL SIGNS: Temperature 97.3, pulse 89, respiratory rate 18, saturating 95% on 2 L, blood pressure 133/84. GENERAL: Awake, alert, and oriented x3, in no distress. HEENT: Normocephalic and atraumatic. NECK: Supple. LUNGS: Crackles at bilateral bases. ABDOMEN: Soft. Positive bowel sounds. EXTREMITIES: 1+ edema. SKIN: Warm and dry. LABORATORY DATA: Laboratory work was reviewed. CBC with a white count of 6.9, hemoglobin of 12, hematocrit of 40, platelet count of 221. Coags were reviewed. Chemistries were reviewed. Potassium went from 4.1 yesterday to 3.3 today after IV Lasix. Troponin is negative x1. BNP was 1824. DIAGNOSTIC DATA: EKG was reviewed. Chest x-ray was reviewed. Lower extremity venogram was reviewed, negative for DVT. ASSESSMENT AND PLAN: 1. Sgqoh-rs-oskyfxf systolic heart failure. 2. Chronic atrial fibrillation. 3. Chronic anticoagulation, on Xarelto. PLAN: 1. Continue IV diuresis. 2. Continue to keep inputs and outputs and daily weights. 3. Already feeling better. 4. We will follow. Job ID: [id number]
[2018-06-30] MEDS ORDERED: Pravastatin Sodium 40 MG TAB PO SCH (21:00)
[2018-07-01] MEDS: HYDROcodone/Acetaminophen 7.5/325 mg Tablet PO PRN ×2 (00:20→21:58)
[2018-07-01] MEDS: Furosemide 40 MG/4 ML VIAL SLOW IVP SCH ×2 (06:19→14:42)
[2018-07-01] MEDS: Folic Acid 1 MG TAB PO SCH (09:46)
[2018-07-01] MEDS: Docusate 100 MG CAP PO SCH ×2 (09:46→20:25)
[2018-07-01] MEDS: Aspirin Chewable 81 MG TAB PO SCH (09:46)
[2018-07-01] MEDS: DULoxetine 60 MG CAP PO SCH ×2 (09:46→20:23)
[2018-07-01] MEDS: Famotidine 20 MG TAB PO SCH ×2 (09:46→20:23)
[2018-07-01] MEDS: Gabapentin 300 MG CAP PO SCH ×3 (09:46→20:23)
[2018-07-01] MEDS: Estradiol 1 MG TAB PO SCH (09:46)
[2018-07-01] MEDS: Ferrous Sulfate 325 MG TAB PO SCH (09:46)
[2018-07-01] MEDS: Metoprolol Tartrate 50 MG TAB PO SCH ×2 (09:47→20:23)
[2018-07-01] MEDS: metFORMIN 500 MG TAB PO SCH ×2 (09:47→20:23)
[2018-07-01] MEDS: Lisinopril 10 MG TAB PO SCH (09:47)
[2018-07-01] MEDS: Rivaroxaban 10 MG TAB PO SCH (09:47)
[2018-07-01] MEDS: Vit A,C & E/Lutein/Minerals Tablet PO SCH (09:47)
--- NOTE | 2018-07-01 14:05 | PRG ---
DATE OF SERVICE: 07/01/2018 SUBJECTIVE: The patient is seen and examined at the bedside. She is doing better. Her appetite is fair. OBJECTIVE: VITAL SIGNS: Blood pressure is 120/76, pulse is 92, respirations 17, temperature is 97.6, and O2 saturation is 94% on 2 L by nasal cannula. Her urine output was estimated at 2100, which makes negative fluid balance at 1140. HEENT: Head is atraumatic and normocephalic. Eyes are PERRLA. Sclerae are nonicteric. Oral mucosa is moist. NECK: Supple. LUNGS: Breath sounds somewhat diminished at both bases. HEART: S1 and S2 normal. Irregularly irregular. No S3. No S4. ABDOMEN: Soft and nontender. Bowel sounds are present. No organomegaly. EXTREMITIES: No clubbing, cyanosis. There is 1+ peripheral edema, similar bilaterally. NEUROLOGIC: She is alert and oriented x2. She has some memory problems. She moves all four extremities. LABORATORY DATA: None. Glycemia is ranging from 111 to 135. IMPRESSION: 1. Tinpb-vz-uobsqvc congestive heart failure. 2. Hypokalemia. 3. Chronic atrial fibrillation. 4. Hyperlipidemia. 5. Hypertension. PLAN: To check BMP. Replace electrolytes if deficient. Continue diuresis. Continue PT, OT, and awaiting further recommendation from Cardiology. Job ID: [id number]
[2018-07-01 14:55] LABS: Anion Gap 13 mmol/L (10-20); BUN (Urea Nitrogen) 7 mg/dL (9.8-20.1); Calc. Creatinine Clearance 62 mL/min (70-130); Calcium 9.4 mg/dL (7.8-10.44); Carbon Dioxide 36 mmol/L (23-31); Chloride 94 mmol/L (98-107); Estimated GFR-MDRD 69; Glucose 110 mg/dL (83-110); Potassium 3.6 mmol/L (3.5-5.1); Sodium 139 mmol/L (136-145)
--- NOTE | 2018-07-01 17:38 | PDOC.CTH ---
Cardiology Progress Note - Subjective Feeling better but not quite at baseline yet. - Objective Vital Signs Temp Pulse Pulse Pulse Resp BP BP 07/01/18 15:58 97.6 F 94 18 07/01/18 11:48 97.6 F 92 17 07/01/18 11:28 103 H 92 120/76 07/01/18 10:26 92 101 H 137/83 07/01/18 09:47 138/86 07/01/18 08:00 07/01/18 07:52 97.7 F 86 20 BP BP Pulse Ox Pulse Ox Pulse Ox Pulse Ox 07/01/18 15:58 119/78 94 L 07/01/18 11:48 120/76 94 L 07/01/18 11:28 141/89 H 89 L 96 76 L 07/01/18 10:26 136/90 97 07/01/18 09:47 07/01/18 08:00 94 L 07/01/18 07:52 138/86 94 L Weight 152 lb 1.6 oz 06/30/18 07/01/18 07/02/18 06:59 06:59 06:59 Intake Total 240 960 360 Output Total 700 2100 Balance -460 -1140 360 - Physical Examination General/Neuro: alert & oriented x3, NAD Neck: no JVD present Lungs: unlabored respirations, other: (Crackles at bases.) Heart: other: (Irreg irreg) Abdomen: NT/ND Extremities: + edema B (1+) - Telemetry Telemetry Rhythm: Afib HR 90-110 - Labs Result Diagrams: 06/30/18 03:11 07/01/18 14:28 Troponin/CKMB Troponin I Less than 0.010 ng/mL (< 0.028) 06/29/18 17:05 - Assessment/Plan 1. Acute on chronic systolic heart failure. 2. Afib RVR, lenient rate control. 3. Moderate aortic valve stenosis 4. Non ischemic CM EF at 40-45% 5. Chronic anticoagulation with Xarelto. PLAN: - Continue IV diuresis for now. - Continue other meds.
[2018-07-01] MEDS: Mirtazapine 15 MG TAB PO SCH (20:23)
[2018-07-01] MEDS: Atorvastatin Calcium 10 MG TAB PO SCH (20:23)
[2018-07-02 05:35] LABS: Anion Gap 13 mmol/L (10-20); BUN (Urea Nitrogen) 11 mg/dL (9.8-20.1); Calc. Creatinine Clearance 63 mL/min (70-130); Calcium 9.8 mg/dL (7.8-10.44); Carbon Dioxide 36 mmol/L (23-31); Chloride 94 mmol/L (98-107); Estimated GFR-MDRD 71; Glucose 108 mg/dL (83-110); Potassium 3.8 mmol/L (3.5-5.1); Sodium 139 mmol/L (136-145)
[2018-07-02] MEDS: Furosemide 40 MG/4 ML VIAL SLOW IVP SCH ×2 (06:36→14:21)
[2018-07-02] MEDS: Lisinopril 10 MG TAB PO SCH (09:58)
[2018-07-02] MEDS: Ferrous Sulfate 325 MG TAB PO SCH (09:59)
[2018-07-02] MEDS: Folic Acid 1 MG TAB PO SCH (09:59)
[2018-07-02] MEDS: metFORMIN 500 MG TAB PO SCH ×2 (09:59→20:19)
[2018-07-02] MEDS: DULoxetine 60 MG CAP PO SCH ×2 (09:59→20:20)
[2018-07-02] MEDS: Rivaroxaban 10 MG TAB PO SCH (09:59)
[2018-07-02] MEDS: Metoprolol Tartrate 50 MG TAB PO SCH ×2 (09:59→20:19)
[2018-07-02] MEDS: Gabapentin 300 MG CAP PO SCH ×3 (09:59→20:19)
[2018-07-02] MEDS: Docusate 100 MG CAP PO SCH ×2 (09:59→20:19)
[2018-07-02] MEDS: Vit A,C & E/Lutein/Minerals Tablet PO SCH (09:59)
[2018-07-02] MEDS: Famotidine 20 MG TAB PO SCH ×2 (09:59→20:19)
[2018-07-02] MEDS: Estradiol 1 MG TAB PO SCH (10:00)
[2018-07-02] MEDS: Aspirin Chewable 81 MG TAB PO SCH (10:00)
--- NOTE | 2018-07-02 11:31 | PRG ---
DATE OF SERVICE: 07/02/2018 SUBJECTIVE: The patient is seen and examined at the bedside. Apparently, she was wandering last night and she was found in some other room and her pulse oximetry was low in the 60s and her oxygen was off. Apparently, she has a history of some memory issues and most likely she has some dementia at her baseline. OBJECTIVE: VITAL SIGNS: This morning, blood pressure is 134/78, pulse is 95, temperature is 97.5, respirations are 20, O2 saturation is 94% on 2 L by nasal cannula. HEENT: Her head is atraumatic and normocephalic. Pupils are responding to light properly. Sclerae nonicteric. Conjunctivae palish. Oral mucosa is somewhat dry. NECK: Supple. LUNGS: Breath sounds diminished at both bases with few crackles bilaterally. No wheezing. HEART: S1 and S2. Somewhat irregular. No S3. No S4. ABDOMEN: Soft and nontender. Bowel sounds are present. No organomegaly. EXTREMITIES: 1+ peripheral edema similar bilaterally. NEUROLOGIC: She is alert and oriented x2. She knows the place, she knows the date, but she does not know the year. She is able to move all four extremities. She follows my commands. LABORATORY DATA: Sodium of 139, potassium 3.8, chloride 94, CO2 of 36, BUN 11, creatinine 0.78, glucose 108. On Accu-Cheks, she is between 111 and 127. Calcium 9.8. Ammonia 29. IMPRESSION: 1. Xnpjf-sa-nfbqzem congestive heart failure. 2. Altered mental status with suspected dementia, baseline. 3. Hypokalemia, improved. 4. Chronic atrial fibrillation. 5. Hyperlipidemia. 6. Hypertension. PLAN: Plan is to do the CT on her brain. Obtain urinalysis and will contact the family regarding her previous medical history and possible dementia and continue her diuresis. The patient was seen by Dr. Alegria, who recommends continuation of her anticoagulation with Xarelto and continuation of IV diuresis for now. We will get her out of bed today and do PT and OT. Hopefully, she is not going to get worse in terms of mental condition changed. Job ID: [id number]
--- NOTE | 2018-07-02 12:14 | EKG ---
Test Reason : Blood Pressure : / mmHG Vent. Rate : 099 BPM Atrial Rate : 104 BPM P-R Int : 000 ms QRS Dur : 092 ms QT Int : 306 ms P-R-T Axes : 000 092 184 degrees QTc Int : 392 ms Atrial fibrillation Rightward axis Incomplete right bundle branch block Abnormal ECG Confirmed by YO LUDWIG DO ([id number]), graphics editor CHASITY CELIS ([id number]) on 07/02/2018 12:14:26 PM Referred By: Confirmed By:YO LUDWIG DO
--- NOTE | 2018-07-02 12:44 | CT ---
CT BRAIN NONCONTRAST: HISTORY: A 77-year-old female with altered mental status. Confusion. FINDINGS: There is no midline shift or any other mass effect. There is no evidence of acute intracranial hemor rhage, large cortical infarct, obstructive hydrocephalus, or extraaxial fluid collection. The calvar ium is intact. There is diffuse parenchymal volume loss. There are low attenuation areas in the whi te matter. These are nonspecific, but in a patient of this age, they are probably chronic ischemic w mayra matter changes due to microvascular atherosclerosis. IMPRESSION: 1) No acute intracranial findings. 2) Involutional changes and chronic ischemic white matter changes. jn [] POS: MAGALYS
[2018-07-02 17:05] LABS: Bilirubin Negative (Negative); Blood, Urine Negative (Negative); Clarity CLEAR (Clear); Glucose, Urine (Dipstick) Negative (Negative); Leukocyte Negative (Negative); Nitrite Negative (Negative); Protein, Urine (Dipstick) Negative (Neg-Trace); Specific Gravity, Urine 1.005 (1.002-1.036); pH, Urine 7.5 (5.0-9.0)
[2018-07-02 17:06] LABS: Bacteria/HPF None Seen HPF (None Seen); Hyaline Casts/LPF 0-3 HYALINE CAST LPF (0-3 Hyaline); Pathc Cast-AUWi Flag 0.13 (0-2.49); RBC/HPF 0-3 HPF (0-3); Squamous Epithelial None Seen HPF (0-3); WBC/HPF None Seen HPF (0-3)
--- NOTE | 2018-07-02 17:12 | PDOC.CTH ---
Cardiology Progress Note - Subjective No new issues. Breathing better. - Objective Vital Signs Temp Pulse Pulse Pulse Resp BP BP 07/02/18 15:46 97.6 F 94 20 07/02/18 15:09 96 93 120/74 07/02/18 11:43 97.4 F L 94 16 07/02/18 09:58 134/78 07/02/18 08:20 07/02/18 07:30 97.5 F L 95 20 BP BP Pulse Ox 07/02/18 15:46 120/74 96 07/02/18 15:09 118/85 07/02/18 11:43 142/78 H 96 07/02/18 09:58 07/02/18 08:20 94 L 07/02/18 07:30 134/78 94 L Weight 150 lb 1.6 oz 07/01/18 07/02/18 07/03/18 06:59 06:59 06:59 Intake Total 960 1680 Output Total 2100 3050 2500 Balance -1140 -1370 -2500 - Physical Examination General/Neuro: NAD Neck: no JVD present Lungs: unlabored respirations Heart: other: (irreg irreg) Abdomen: NT/ND Extremities: + edema B (no edema) - Telemetry Telemetry Rhythm: Afib HR 80's. - Labs Result Diagrams: 06/30/18 03:11 07/02/18 04:39 Troponin/CKMB Troponin I Less than 0.010 ng/mL (< 0.028) 06/29/18 17:05 - Assessment/Plan 1. Acute on chronic systolic heart failure. 2. Afib RVR, lenient rate control. 3. Moderate aortic valve stenosis 4. Non ischemic CM EF at 40-45% 5. Chronic anticoagulation with Xarelto. PLAN: - Switch Lasix to PO tomorrow. - Continue other meds.
[2018-07-02] MEDS: Mirtazapine 15 MG TAB PO SCH (20:20)
[2018-07-02] MEDS: Atorvastatin Calcium 10 MG TAB PO SCH (20:20)
[2018-07-03] MEDS ORDERED: Melatonin 3 MG TAB PO PRN (00:24)
[2018-07-03 05:18] LABS: Anion Gap 13 mmol/L (10-20); BUN (Urea Nitrogen) 12 mg/dL (9.8-20.1); Calc. Creatinine Clearance 59 mL/min (70-130); Calcium 9.4 mg/dL (7.8-10.44); Carbon Dioxide 37 mmol/L (23-31); Chloride 93 mmol/L (98-107); Estimated GFR-MDRD 71; Glucose 110 mg/dL (83-110); Potassium 3.7 mmol/L (3.5-5.1); Sodium 139 mmol/L (136-145)
[2018-07-03] MEDS: Furosemide 40 MG/4 ML VIAL SLOW IVP SCH ×2 (06:14→15:13)
[2018-07-03] MEDS: metFORMIN 500 MG TAB PO SCH (08:58)
[2018-07-03] MEDS: Lisinopril 10 MG TAB PO SCH (08:58)
[2018-07-03] MEDS: Ferrous Sulfate 325 MG TAB PO SCH (08:58)
[2018-07-03] MEDS: Vit A,C & E/Lutein/Minerals Tablet PO SCH (08:58)
[2018-07-03] MEDS: Aspirin Chewable 81 MG TAB PO SCH (08:59)
[2018-07-03] MEDS: Folic Acid 1 MG TAB PO SCH (08:59)
[2018-07-03] MEDS: Docusate 100 MG CAP PO SCH (08:59)
[2018-07-03] MEDS: Rivaroxaban 10 MG TAB PO SCH (08:59)
[2018-07-03] MEDS: Estradiol 1 MG TAB PO SCH (08:59)
[2018-07-03] MEDS: DULoxetine 60 MG CAP PO SCH (08:59)
[2018-07-03] MEDS: Gabapentin 300 MG CAP PO SCH ×2 (09:00→15:13)
[2018-07-03] MEDS: Famotidine 20 MG TAB PO SCH (09:00)
[2018-07-03] MEDS: Metoprolol Tartrate 50 MG TAB PO SCH (09:00)
[2018-07-03 12:08] VITALS: BP 118/60; TEMP 97.6
--- NOTE | 2018-07-05 08:44 | DIS ---
DATE OF ADMISSION: 06/30/2018 DATE OF DISCHARGE: 07/03/2018 FINAL DIAGNOSES: 1. Acute on chronic congestive heart failure secondary to cardiomyopathy with left ventricular ejection fraction estimated at 40% to 45%. 2. Atrial fibrillation with rapid ventricular response. 3. Moderate aortic valve stenosis. 4. Nonischemic cardiomyopathy, ejection fraction of 40% to 45%. 5. Chronic anticoagulation, on Xarelto. 6. Dementia. 7. Hyperlipidemia. 8. Hypertension. 9. Diabetes mellitus. 10. Hypokalemia. GUEST SERVICE HOST: Dr. Duane Alegria, Cardiology Service. IMAGES: 1. Chest x-ray and showed cardiomegaly with bilateral interstitial densities which was felt to be pulmonary edema. 2. Loop recording device overlying the left lower chest and upper abdomen. 3. Doppler of the lower extremities negative for DVTs. 4. Brain CT without any acute intracranial findings with some chronic ischemic white matter changes and parenchymal volume loss. HOSPITAL COURSE: The patient was a 77-year-old female, who was admitted to the hospital with acute exacerbation of congestive heart failure. She has a history of congestive heart failure with ejection fraction of the left ventricle around 40% and diastolic dysfunction with moderate aortic stenosis and chronic atrial fibrillation, on Xarelto. 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 At the time of admission, her EKG showed atrial fibrillation with 99 beats per minute ventricular rate. There was incomplete right bundle-branch block. Her white count was 7, hemoglobin was 13, hematocrit 44, platelet count 251,000. Creatinine 0.8. BNP was up to 1824. X-ray showed cardiomegaly with bilateral pulmonary vascular congestion, felt to be pulmonary edema and the Doppler of the lower extremities did not show any DVTs. The patient was admitted to the hospital for diuretics, IV Lasix 40 mg twice a day. She was seen by Dr. Alegria for cardiology evaluation. She improved relatively quickly. Continued on her Xarelto and lisinopril and CHF improved. She is doing quite well today. She had some episodes of increased. The patient had some altered mental status during this hospitalization, which was kind of fluctuating, but as far as we know, she has some dementia at her baseline. Today, she is doing well. PHYSICAL EXAMINATION: VITAL SIGNS: Her blood pressure is 130/68, pulse is 81, temperature is 98.3, respirations 16, O2 saturation is 96% on 2 L by nasal cannula. LUNGS: Breath sounds somewhat diminished at both bases with some small crackles at both bases. No wheezing. HEART: S1, S2, somewhat irregular. No S3. No S4. DISPOSITION: The patient is discharged to [facility] facility today in good condition for PT and OT. MEDICATIONS: She will continue on her medications which are: 1. Mirtazapine 30 mg at bedtime. 2. Potassium chloride 20 mEq once a day. 3. Docusate sodium 200 mg twice a day. 4. Pantoprazole 40 mg once a day. 5. Vitamin D3 1000 units once a day. 6. Gabapentin 300 mg three times a day. 7. Pravastatin 40 mg at bedtime. 8. Furosemide 40 mg q.a.m. 9. Estradiol 0.5 mg daily. 10. Metformin 1000 mg daily. 11. Cymbalta 60 mg twice a day. 12. Xarelto 20 mg once a day. 13. Metoprolol 50 mg twice a day. 14. Lisinopril 10 mg once a day. 15. Folic acid 1 mg once a day. 16. Ferrous sulfate 65 mg once a day. 17. Pantoprazole as mentioned above. 18. Aspirin 81 mg once a day and p.r.n. FOLLOWUP: She is going to follow up with her primary care physician after she is discharged from retirement facility. She will stay on 2000 calories ADA diet and activities as tolerated and the patient was seen and examined before she is discharged. TIME SPENT: Discharge time is less than 30 minutes. Job ID: [id number]
--- NOTE | 2018-07-05 09:44 | PQF ---
ALBANIA VERA ZBIGNIEW A MD [id number] [facility] [id number] CLINICAL DOCUMENTATION IMPROVEMENT CLARIFICATION FORM: ICD-10 Updated PLEASE DO AN ADDENDUM TO THE PROGRESS NOTE WITH ANY DOCUMENTATION UPDATES OR ADDITIONS AND CARRY THROUGH TO DC SUMMARY. THANK YOU. DATE: 07/05/2018 ATTN: DR. Ashlyn MARIE Please exercise your independent, professional judgment in responding to the clarification form. Clinical indicators are provided on the bottom of this form for your review. Please check appropriate box(s): [ x ] Chronic Respiratory Failure only [ ] with Hypoxia [ ] with Hypercapnia [ ] Hypoxia [ ] Other diagnosis [ ] Unable to determine In addition, please specify: Present on Admission (POA): [ ] Yes [ ] No [ ] Unable to determine For continuity of documentation, please document condition throughout progress notes and discharge summary. Thank You. CLINICAL INDICATORS - SIGNS / SYMPTOMS / LABS ER PHYSICIAN DOCUMENTATION 06/30: NO SOB ABOVE BASELINE. NOT REQUIRING MORE THAN HER 2L NC BASELINE 02. SOB DURING AMBULATION WHICH IS NEW FOR PATIENT. 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 LIZBETH (This form is maintained as a part of the permanent medical record) 2014 [employer] All Rights Reserved [email or web address] [phone] MTDD
== END 2018-07-03 16:11 | DRG 292 ==
LOC: ERS 16:34 → ERHOLD 21:30 → 2SW 06-30 13:14 → OBSVTOIN 06-30 17:46
PROVIDERS: ADMIT Emergency Medicine; ATTEND Emergency Medicine
DX: I11.0 Hypertensive heart disease with heart failure (principal); J96.10 Chronic respiratory failure, unspecified whether with hypoxia or hypercapnia; I50.23 Acute on chronic systolic (congestive) heart failure; I35.0 Nonrheumatic aortic (valve) stenosis; E78.5 Hyperlipidemia, unspecified; I48.2 Chronic atrial fibrillation; E11.9 Type 2 diabetes mellitus without complications; F03.90 Unspecified dementia, unspecified severity, without behavioral disturbance, psychotic disturbance, mood disturbance, and anxiety; E87.6 Hypokalemia; I42.9 Cardiomyopathy, unspecified; F32.9 Major depressive disorder, single episode, unspecified; I45.10 Unspecified right bundle-branch block; Z99.81 Dependence on supplemental oxygen; Z79.01 Long term (current) use of anticoagulants; Z79.84 Long term (current) use of oral hypoglycemic drugs; Z79.899 Other long term (current) drug therapy; Z88.0 Allergy status to penicillin; Z88.2 Allergy status to sulfonamides; Z86.73 Personal history of transient ischemic attack (TIA), and cerebral infarction without residual deficits; Z82.49 Family history of ischemic heart disease and other diseases of the circulatory system
CPT/HCPCS: 36415; 36416; 70450; 71045; 80048; 80053; 81001; 82140; 83880; 84484; 85025; 85610; 85730; 90471; 90662; 93005; 93798; 93970; 96374; 96376; G0008; J1940; J7620

== ENCOUNTER 2018-08-05 10:12 | Inpatient (IN) | payer MEDICARE, MEDICAID ==
[2018-08-05] MEDS ORDERED: Ondansetron ODT 4 MG TAB SL PRN (11:00)
[2018-08-05] MEDS ORDERED: Sodium Chloride 0.9% 1,000 ML IV SCH (11:00)
[2018-08-05] MEDS ORDERED: Diltiazem 125 MG in Sodium Chloride 0.9% 100 ML IVPB SCH (11:00)
[2018-08-05] MEDS ORDERED: Ondansetron PF 4 MG/2 ML Vial IVP PRN ×2 (11:00→14:55)
[2018-08-05 12:56] LABS: Troponin I 0.015 ng/mL (< 0.028)
--- NOTE | 2018-08-05 12:59 | PDOC.FPRHP ---
- History of Present Illness Chief Complaint: shortness of breath History of Present Illness: Gloria Arboleda is an 78 year old F with a PMH of CHF (Last Echo 03/07: EF-40-45%) , A fib on Xarelto, CAD, HTN, HLD, GERD who was transferred from [place] ED with 1 day history of shortness of breath. Patient was discharged yesterday, , after hospitalization for acute on chronic CHF exacerbation. Patient called EMS to house this morning because she was dyspneic. Upon arrival, O2 sats were in the low 80s and HR was in the 130s-140s. Patient is on O2 supplementation chronically at home, 2 L NC is her normal. She also endorses associated nausea and two episodes of NBNB vomiting at home. In [place] ED, patient's O2 sats were improved to the mid 90s on 3 L NC. She was given 40 IV lasix there. She was given Lopressor and diltiazem push and eventually started on dilt gtt in [place] as well. 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 She denies drinking excessive amounts of fluid since returning home from hospital stay. She denies fever, chills, chest pain, abdominal pain, dysuria. ED Course: [facility] [place] [facility] - Allergies/Adverse Reactions Allergies Allergy/AdvReac Type Severity Reaction Status Date / Time levofloxacin Allergy Intermediate Rash Verified 02/04/17 08:47 cyclobenzaprine Allergy Verified 02/04/17 08:47 [From Flexeril] Penicillins Allergy Verified 02/04/17 08:47 Sulfa (Sulfonamide Allergy Verified 02/04/17 08:47 Antibiotics) - Home Medications Medication Instructions Recorded Confirmed Type Cholecalciferol (Vitamin D3) 1,000 unit PO DAILY 11/19/14 08/02/18 History [Vitamin D3] Pravastatin Sodium [Pravachol] 40 mg PO HS 11/19/14 08/02/18 History metFORMIN HCl [Glucophage] 1,000 mg PO DAILY 11/19/14 08/02/18 History Pantoprazole [Protonix] 40 mg PO DAILY 02/05/17 08/02/18 History Vit A/C/E/Zinc/Selenium/Copper 1 tab PO 1200 02/05/17 08/02/18 History [Vision Formula Tablet] Folic Acid [Folvite] 1 mg PO DAILY tab 03/08/18 08/02/18 Rx Lisinopril [Zestril] 10 mg PO DAILY #30 tab 03/08/18 08/02/18 Rx Metoprolol Tartrate [Lopressor] 50 mg PO BID #60 tab 03/08/18 08/02/18 Rx DULoxetine [Cymbalta] 60 mg PO HS 06/30/18 08/02/18 History Ferrous Sulfate 65 mg PO 1200 06/30/18 08/02/18 History Gabapentin 300 mg PO TID 06/30/18 08/02/18 History Mirtazapine [Remeron] 30 mg PO HS 06/30/18 08/02/18 History Acetaminophen [Tylenol Regular 650 mg PO Q4H PRN tab 07/03/18 08/02/18 Rx Strength] Aspirin Chewable [Aspirin Chewable 81 mg PO DAILY tab 07/03/18 08/02/18 Rx Tablet] Melatonin 6 mg PO HS PRN tab 07/03/18 08/02/18 Rx Sennosides/Docusate Sodium 2 tab PO BIDPRN PRN tab 07/03/18 08/02/18 Rx [Senokot S] Furosemide 20 mg PO QAM 08/02/18 08/02/18 History Potassium Chloride [Klor-Con M20] 20 meq PO BID-WM 08/02/18 08/02/18 History Rivaroxaban [Xarelto] 15 mg PO DAILY 08/02/18 08/02/18 History busPIRone HCl [Buspar] 5 mg PO BID 08/02/18 08/02/18 History - History PMHx: CHF (Echo 03/07: EF 40-45%), CAD, A fib on Xarelto, DM2, HLD, HTN, Hx of TIA PSHx: R hip, right knee, cataracts, appendectomy, cholecystectomy, partial hysterectomy FHx: n/c Social: denies tobacco, alcohol, drug use - Review of Systems General: denies: fever/chills, weight/appetite/sleep changes, night sweats Eyes: denies: eye pain, vision changes ENT: denies: nasal congestion, rhinorrhea Respiratory: reports: shortness of breath, exercise intolerance. denies: cough , congestion Cardiovascular: reports: palpitation, orthopnea. denies: chest pain, edema Gastrointestinal: reports: nausea, vomiting. denies: diarrhea, constipation, abdominal pain, GI bleeding Genitourinary: denies: dysuria, discharge Skin: denies: rashes, lesions Musculoskeletal: denies: pain, tenderness, arthritis/arthralgias Neurological: reports: weakness. denies: syncope, seizure Psychological: denies: anxiety, depression - Vital signs BP: 134/100 HR: 95 RR: 24 Tmax: 98.3 Pox: 96% on 3 L NC Wt: 64 kg (Previous admission weight 08/02 was 72 kg) - Physical Exam Constitutional: NAD, awake, alert and oriented HEENT: normocephalic and atraumatic, PERRLA, EOMI, conjunctiva clear, no scleral icterus, MMM, oropharynx clear Neck: supple, FROM, no LAD Heart: normal S1/S2, pulses present, no edema -Heart: tachycardic, irregularly irregular rhythm, 2/6 systolic murmur Lungs: CTAB, no respiratory distress, good air movement -Lungs: bibasilar rales Abdomen: soft, non-tender, bowel sounds present, no masses/distention Musculoskeletal: normal structure, normal tone Neurological: no focal deficit, CN II-XII intact, normal sensation Skin: no rash/lesions, good turgor, capillary refill <2 seconds Heme/Lymphatic: no unusual bruising or bleeding, no purpura, no petechia Psychiatric: normal mood and affect, good judgment and insight, intact recent and remote memory FMR H&P: Results - EKG Interpretation EKG: A fib with RVR, rate 122 - Radiology Interpretation Chest x-ray Status: image reviewed by me (Cardiomegaly, pulmonary vascular congestion and bilateral pulmonary edema) FMR H&P: A/P - Problem List (1) Acute and chronic respiratory failure with hypoxia Current Visit: No Status: Acute Code(s): J96.21 - ACUTE AND CHRONIC RESPIRATORY FAILURE WITH HYPOXIA (2) Atrial fibrillation with RVR Current Visit: No Status: Chronic Code(s): I48.91 - UNSPECIFIED ATRIAL FIBRILLATION (3) Elevated INR Current Visit: No Status: Acute Code(s): R79.1 - ABNORMAL COAGULATION PROFILE (4) Physical deconditioning Current Visit: No Status: Acute Code(s): R53.81 - OTHER MALAISE (5) DM2 (diabetes mellitus, type 2) Current Visit: No Status: Chronic (6) GERD (gastroesophageal reflux disease) Current Visit: No Status: Chronic Code(s): K21.9 - GASTRO-ESOPHAGEAL REFLUX DISEASE WITHOUT ESOPHAGITIS (7) HLD (hyperlipidemia) Current Visit: No Status: Chronic Code(s): E78.5 - HYPERLIPIDEMIA, UNSPECIFIED Qualifiers: (8) HTN (hypertension) Current Visit: No Status: Chronic Code(s): I10 - ESSENTIAL (PRIMARY) HYPERTENSION Qualifiers: (9) Hx TIA/stroke w/o resid Current Visit: No Status: Chronic Code(s): Z86.73 - PRSNL HX OF TIA (TIA), AND CEREB INFRC W/O RESID DEFICITS - Plan Acute on Chronic CHF with Hypoxia: - Recent admission, 6 total in the last 5 months - BNP 2532, elevated from prior admission, CXR with pulm vasc thiago and edema - Continue supplemental O2 - Consult CM - IV lasix - Strict I/Os, fluid restriction, HH incl low Na diet - Consult Cardiology, appreciate recs - Admit to tele, inpatient A fib with RVR: - S/p lopressor, dilt push, currently on diltiazem gtt - HR improving, now down to 80-90s in ER - continue home xarelto - currently hemodynamically stable - Cardiology consulted, appreciate recs Supratherapeutic INR - 4.2 today - was 1.7 last month - will continue to trend and monitor sx DM2 - hold home metformin - SSI and Accuchecks ACHS HTN - Continue home meds - BP stable at this time HLD - Continue home meds GERD - Home meds Physical Deconditioning - Consult PT/OT, CM - Concern that patient cannot adequately manage ADLs and CHF management on her own at home - will likely need placement CODE STATUS: DNR Dispo: Anticipate hospital stay >2 midnights, will likely need placement FMR H&P: Upper Level - Plan Date/Time: 08/05/18 1251 I, [], have evaluated this patient and agree with findings/plan as outlined by internal control analyst resident. Pertinent changes/additions are listed here. Addendum - Attending - Attending Attestation Date/Time: 08/05/18 4912 I personally evaluated the patient and discussed the management with Dr. Richards. I agree with and repeated the History, Examination, Assessment and Plan documented above with any addition or exceptions noted below.
[2018-08-05 14:41] VITALS: BMI 23.8
[2018-08-05] MEDS ORDERED: Dextrose 50% Abboject 50 ML SYRINGE SLOW IVP PRN (14:55)
[2018-08-05] MEDS ORDERED: Senokot S 8.6-50 MG TAB PO PRN (14:55)
[2018-08-05] MEDS ORDERED: Dextrose 5% in Water 1,000 ML IV PRN (14:55)
[2018-08-05] MEDS ORDERED: Acetaminophen 325 MG TAB PO PRN (14:55)
[2018-08-05] MEDS ORDERED: HumaLOG 300 UNITS/3 ML VIAL SC PRN (14:55)
[2018-08-05 16:10] LABS: Troponin I Less than 0.010 ng/mL (< 0.028)
[2018-08-05] MEDS: Furosemide 40 MG/4 ML VIAL SLOW IVP SCH (16:32)
--- NOTE | 2018-08-05 17:48 | CON ---
DATE OF CONSULTATION: HISTORY OF PRESENT ILLNESS: The patient is an 78-year-old woman, who presents for evaluation of dyspnea and palpitations. The patient has a long cardiac history. The patient has a history of atrial fibrillation. She at one time was placed on amiodarone. She had apparently developed pulmonary fibrosis. The patient has been on chronic anticoagulation including Coumadin and now most recently on Xarelto. The patient has been admitted on several occasions with dyspnea and congestive heart failure. She underwent a cardiac catheterization in 2016, which revealed normal left ventricular systolic function with normal coronary arteries. She was admitted in February 2018 and underwent an echocardiogram that showed mild decrease in left ventricular ejection fraction of 40% with mild aortic stenosis. The patient continues to have difficulty with marked dyspnea. She denies having any chest discomfort. PAST MEDICAL HISTORY: Significant for; 1. Congestive heart failure. 2. Aortic stenosis. 3. Chronic atrial fibrillation. 4. Pulmonary fibrosis. 5. Hypertension. 6. Dyslipidemia. 7. History of TIAs. PAST SURGICAL HISTORY: She has had knee surgery, cataract surgery, appendectomy, cholecystectomy, hysterectomy, hip surgery. MEDICATIONS: See nursing list. ALLERGIES: SHE IS ALLERGIC TO PENICILLIN, SULFA DRUGS, FLEXERIL. SOCIAL HISTORY: Nonsmoker. FAMILY HISTORY: No strong family history of coronary artery disease. REVIEW OF SYSTEMS: Ten-point system otherwise unremarkable. PHYSICAL EXAMINATION: GENERAL: An elderly woman in mild distress. VITAL SIGNS: Blood pressure of 142/83. NECK: Showed no jugular venous distention. LUNGS: Lungs have crackles throughout both lung armstrong. HEART: Irregular rate and rhythm. Normal S1, S2 with a 3/6 systolic murmur. ABDOMEN: Nondistended. EXTREMITIES: Show 2+ moderate bilateral edema. VASCULAR: Radial pulses 2+. LABORATORY RESULTS: Her white blood cell count was 7.7, hemoglobin 12.0, hematocrit 38.9, platelets 217. Her INR was 4.2. Her BNP was 2532. Her sodium was 140, potassium 5.0, chloride 97, bicarb 31, BUN is 15, creatinine is 0.83, glucose is 127. EKG revealed atrial fibrillation with controlled ventricular response. IMPRESSION: 1. Congestive heart failure. 2. Atrial fibrillation. 3. Pulmonary fibrosis. 4. Aortic stenosis. 5. History of a cardiomyopathy with a mild decrease in left ventricular systolic function. 6. Diabetes mellitus. 7. Dyslipidemia. 8. History of TIAs. 9. Pulmonary fibrosis. This unfortunate woman has pulmonary fibrosis and congestive heart failure. The patient is being diuresed with IV Lasix. We will continue to try to control the patient's heart rate with metoprolol. The patient's prognosis is guarded. We will recheck the patient's echocardiogram and follow her throughout her hospitalization. Job ID: [id number]
[2018-08-05 17:59] LABS: Hemoglobin 11.9 g/dL (12.0-16.0); Platelet Count 199 thou/uL (130-400)
[2018-08-05] MEDS: Metoprolol Tartrate 25 MG TAB PO SCH (20:17)
[2018-08-05] MEDS: Atorvastatin Calcium 10 MG TAB PO SCH (20:17)
[2018-08-05] MEDS: DULoxetine 60 MG CAP PO SCH (20:17)
[2018-08-05] MEDS: busPIRone HCl 5 MG TAB PO SCH (20:17)
[2018-08-05] MEDS: Mirtazapine 30 MG TAB PO SCH (20:25)
[2018-08-05] MEDS: Melatonin 3 MG TAB PO PRN (20:26)
[2018-08-06] MEDS ORDERED: Diltiazem HCl 125 MG, Admixture Fee 1 EACH in Sodium Chloride 0.9% 100 ML IVPB SCH (02:00)
[2018-08-06] MEDS: Furosemide 40 MG/4 ML VIAL SLOW IVP SCH ×2 (05:48→15:14)
[2018-08-06] MEDS: Rivaroxaban 10 MG TAB PO SCH (05:48)
--- NOTE | 2018-08-06 05:55 | PDOC.FM ---
- Subjective Subjective: Morgan Arboleda seen at bedside this morning. She states that she is feeling better this morning and she is not as dyspneic. She is at her baseline O2 requirement, 2 L NC. She denies any fever, chills, chest pain, n/v, abdominal pain. We discussed need for potential placement in order to get better management of her CHF. She states that if she absolutely had to go to a NH, she would prefer the one in [place]. She would be interested in a SNF but cannot afford it. - Objective MAR Reviewed: Yes Vital Signs & Weight: Vital Signs (12 hours) Temp Pulse Resp BP Pulse Ox 08/06/18 04:00 97.9 F 84 20 116/56 L 94 L 08/06/18 00:00 77 121/57 L 08/05/18 20:10 97.9 F 75 16 133/63 98 Weight Weight 61.099 kg I&O: 08/04/18 08/05/18 08/06/18 06:59 06:59 06:59 Intake Total 414 Output Total 500 Balance -86 Result Diagrams: 08/06/18 05:42 08/06/18 05:42 Phys Exam - Physical Examination Constitutional: NAD HEENT: moist MMs, sclera anicteric Neck: supple, full ROM decreased air movement, improved from yesterday, b/l rales regular rate, irregularly irregular rhythm, 2/6 systolic murmur Gastrointestinal: soft, non-tender, no distention Musculoskeletal: no edema, pulses present Neurological: non-focal, normal sensation, moves all 4 limbs Psychiatric: normal affect, A&O x 3 Skin: no rash, cap refill <2 seconds Dx/Plan (1) Acute and chronic respiratory failure with hypoxia Code(s): J96.21 - ACUTE AND CHRONIC RESPIRATORY FAILURE WITH HYPOXIA Status: Acute (2) Elevated INR Code(s): R79.1 - ABNORMAL COAGULATION PROFILE Status: Acute (3) Physical deconditioning Code(s): R53.81 - OTHER MALAISE Status: Acute (4) DM2 (diabetes mellitus, type 2) Status: Chronic (5) GERD (gastroesophageal reflux disease) Code(s): K21.9 - GASTRO-ESOPHAGEAL REFLUX DISEASE WITHOUT ESOPHAGITIS Status: Chronic (6) HLD (hyperlipidemia) Code(s): E78.5 - HYPERLIPIDEMIA, UNSPECIFIED Status: Chronic Qualifiers: (7) HTN (hypertension) Code(s): I10 - ESSENTIAL (PRIMARY) HYPERTENSION Status: Chronic Qualifiers: (8) Hx TIA/stroke w/o resid Code(s): Z86.73 - PRSNL HX OF TIA (TIA), AND CEREB INFRC W/O RESID DEFICITS Status: Chronic - Plan Plan: Acute on Chronic CHF with Hypoxia: - Recent admission, 6 total in the last 5 months - BNP 2532, elevated from prior admission, CXR with pulm vasc thiago and edema - Continue supplemental O2 - Consult CM - IV lasix 40 mg BID - Strict I/Os, fluid restriction, HH incl low Na diet - Net I/O: - 400 ml at this time - Consult Cardiology, appreciate recs - back to baseline supplemental O2 requirement, 2 L NC A fib with RVR: - S/p lopressor, dilt push, and started on dilt gtt in ER - HR improved quickly, has been rate controlled on the floor - continue home xarelto - currently hemodynamically stable - Cardiology consulted, appreciate recs - discontinuing dilt gtt today Supratherapeutic INR - 4.2 on admission, 1.8 this morning, likely lab error - was 1.7 last month - will continue to trend and monitor sx DM2 - hold home metformin - SSI and Accuchecks ACHS HTN - Continue home meds - BP stable at this time HLD - Continue home meds GERD - Home meds Physical Deconditioning - Consult PT/OT, CM - Concern that patient cannot adequately manage ADLs and CHF management on her own at home - will likely need placement Addendum - Attending - Attending Attestation Date/Time: 08/06/18 6550 I personally evaluated the patient and discussed the management with Dr. Richards I agree with the History, Examination, Assessment and Plan documented above with any addition or exceptions noted below. 78 yo female with multiple medical conditions admitted for a fib with RVR causing CHF exacerbation and worsening hypoxia HD #1 Denies CP and SOB this morning. Discussed concerns with patient being at home. Patient tearful and not interested in going to [facility] care facility. Does not want to live with family members. VS, Labs, and imaging reviewed. Agree with PE as documented. 1. Acute on chronic HF exacerbation: Recently discharged after diuresis. Etiology this visit related to a fib with RVR. Mixed diastolic and systolic HF. No evidence of ischemia at this point. BNP again elevated, suggestive of poor prognosis. Continue diuresis and negative fluid balance. Currently on beta abimael, ACEI, ASA, and statin. ECHO ordered. Could benefit from ARNI or MRA due to stage of HF. Patient in END stage portion of disease state. 2. A fib with RVR: s/p CCB drip. Now rate controlled. Cards following. 3. Aortic stenosis: Symptomatic. Poor interventional candidate. 4. Adjust home meds based on other co-morbid conditions. 5. Deconditioning: Patient not able to care of herself at home. Family aware. Patient refusing placement. CM consulted. Dispo: Continue to diuresis and medical management. Needs to reconsider living arrangements. Patient not safe to go home. Needs daily assistance. Sg
[2018-08-06 05:58] LABS: #Basophils 0.1 thou/uL (0.0-0.2); #Eosinphils 0.4 thou/uL (0.0-0.7); #Lymphocytes 1.5 thou/uL (1.20-3.40); #Monocytes 0.7 thou/uL (0.11-0.59); #Neutrophils 4.1 thou/uL (1.40-6.50); %Eosinophils 5.8 % (0.0-10.0); %Lymphocytes 22.2 % (21.0-51.0); %Monocytes 10.5 % (0.0-10.0); %Neutrophils 60.6 % (42.0-75.0); Hemoglobin 11.5 g/dL (12.0-16.0); Mean Corpuscular HGB CONC 31.4 g/dL (32.0-36.0); Mean Corpuscular Hemoglobin 30.9 pg (27.0-31.0); Mean Corpuscular Volume 98.4 fL (78.0-98.0); Mean Platelet Volume 6.9 fL (7.4-10.4); Platelet Count 193 thou/uL (130-400); RBC Distribution Width 14.1 % (11.5-14.5); Red Blood Cell (RBC) Count 3.71 mill/uL (4.20-5.40); White Blood Cell (WBC) Count 6.7 thou/uL (4.8-10.8)
[2018-08-06 05:59] LABS: INR-International Normal Ratio 1.8; PTT 42.7 SEC (22.9-36.1); Prothrombin Time 20.9 SEC (12.0-14.7)
[2018-08-06 06:08] LABS: Anion Gap 15 mmol/L (10-20); BUN (Urea Nitrogen) 15 mg/dL (9.8-20.1); Calc. Creatinine Clearance 52 mL/min (70-130); Calcium 9.3 mg/dL (7.8-10.44); Carbon Dioxide 30 mmol/L (23-31); Chloride 97 mmol/L (98-107); Estimated GFR-MDRD 66; Glucose 123 mg/dL (83-110); Potassium 3.5 mmol/L (3.5-5.1); Sodium 138 mmol/L (136-145)
--- NOTE | 2018-08-06 08:32 | RAD ---
FRONTAL VIEW CHEST: INDICATIONS: Heart failure. COMPARISON: Exam from the previous day. FINDINGS: There is redemonstration of the enlarged cardiac silhouette, prominent pulmonary vasculature, bilater al pulmonary edema, and pleural fluid. There is an electronic device, likely a loop recorder, overly ing the inferior left chest. Numerous extrinsic artifacts limit visualization. IMPRESSION: Decompensated congestive heart failure. Recommend continued followup. POS: C
[2018-08-06] MEDS: Lisinopril 10 MG TAB PO SCH (09:42)
[2018-08-06] MEDS: Aspirin Chewable 81 MG TAB PO SCH (09:42)
[2018-08-06] MEDS: busPIRone HCl 5 MG TAB PO SCH ×2 (09:42→21:00)
[2018-08-06] MEDS: Folic Acid 1 MG TAB PO SCH (09:43)
[2018-08-06] MEDS: Metoprolol Tartrate 25 MG TAB PO SCH (09:44)
[2018-08-06] MEDS ORDERED: SELENIUM PO SCH (12:00)
[2018-08-06] MEDS ORDERED: [UNRECOGNIZED DRUG - OTHER] PO SCH (12:00)
[2018-08-06] MEDS ORDERED: COPPER PO SCH (12:00)
[2018-08-06] MEDS ORDERED: VIT A PO SCH (12:00)
[2018-08-06] MEDS ORDERED: ZINC PO SCH (12:00)
[2018-08-06] MEDS: Vit A,C & E/Lutein/Minerals Tablet PO SCH (12:38)
[2018-08-06] MEDS ORDERED: Metoprolol Tartrate 25 MG TAB PO SCH (15:00)
[2018-08-06] MEDS: Metoprolol Tartrate 50 MG TAB PO SCH ×2 (15:15→21:00)
[2018-08-06] MEDS: Atorvastatin Calcium 10 MG TAB PO SCH (20:59)
[2018-08-06] MEDS: Mirtazapine 30 MG TAB PO SCH (21:00)
[2018-08-06] MEDS: DULoxetine 60 MG CAP PO SCH (21:00)
[2018-08-06] MEDS: Melatonin 3 MG TAB PO PRN (22:53)
[2018-08-07] MEDS: Rivaroxaban 10 MG TAB PO SCH (05:22)
[2018-08-07] MEDS: Furosemide 40 MG/4 ML VIAL SLOW IVP SCH ×2 (05:24→13:19)
--- NOTE | 2018-08-07 06:42 | PDOC.FM ---
- Subjective Subjective: Patient doing well. No significant overnight events. Patient denies shortness of breath, chest pain, N/V. She states she is feeling fine. Discussed short term placement and rehab this morning. Patient thinks she is agreeable to one of those two options, but she is wanting to discuss with CM first. She is adamant about not going to custodial nursing facility. - Objective MAR Reviewed: Yes Vital Signs & Weight: Vital Signs (12 hours) Temp Pulse Resp BP Pulse Ox 08/07/18 04:00 97.8 F 88 16 128/90 99 08/06/18 19:20 97.6 F 74 18 125/59 L 96 Weight Weight 60.328 kg I&O: 08/05/18 08/06/18 08/07/18 06:59 06:59 06:59 Intake Total 954 1020 Output Total 1350 2350 Balance -396 -1330 Result Diagrams: 08/06/18 05:42 08/06/18 05:42 EKG Reviewed by me: Yes Radiology Reviewed by me: Yes Dx/Plan (1) Acute and chronic respiratory failure with hypoxia Code(s): J96.21 - ACUTE AND CHRONIC RESPIRATORY FAILURE WITH HYPOXIA Status: Acute (2) Acute on chronic congestive heart failure Code(s): I50.9 - HEART FAILURE, UNSPECIFIED Status: Acute (3) Physical deconditioning Code(s): R53.81 - OTHER MALAISE Status: Acute (4) Atrial fibrillation Code(s): I48.91 - UNSPECIFIED ATRIAL FIBRILLATION Status: Chronic Qualifiers: (5) Chronic anemia Code(s): D64.9 - ANEMIA, UNSPECIFIED Status: Chronic (6) DM2 (diabetes mellitus, type 2) Status: Chronic (7) Depression Code(s): F32.9 - MAJOR DEPRESSIVE DISORDER, SINGLE EPISODE, UNSPECIFIED Status : Chronic (8) GERD (gastroesophageal reflux disease) Code(s): K21.9 - GASTRO-ESOPHAGEAL REFLUX DISEASE WITHOUT ESOPHAGITIS Status: Chronic (9) HLD (hyperlipidemia) Code(s): E78.5 - HYPERLIPIDEMIA, UNSPECIFIED Status: Chronic Qualifiers: (10) HTN (hypertension) Code(s): I10 - ESSENTIAL (PRIMARY) HYPERTENSION Status: Chronic Qualifiers: - Plan Plan: Acute on Chronic CHF with Hypoxia: - Recent admission, 6 total in the last 5 months - BNP 2532, elevated from prior admission, CXR with pulm vasc thiago and edema - Continue supplemental O2 - Consulted CM regarding placement - IV lasix 40 mg BID, patient's home medication dose will need to be increased upon d/c - Strict I/Os, fluid restriction, HH incl low Na diet - Net I/O: - 2L at this time - Cardiology consulted, appreciate recs - back to baseline supplemental O2 requirement, 2 L NC A fib with RVR: - S/p lopressor, dilt push, and started on dilt gtt in ER - HR improved quickly, has been rate controlled on the floor - continue home xarelto - currently hemodynamically stable - Cardiology consulted, appreciate recs - home metoprolol increased from BID to TID Supratherapeutic INR - 4.2 on admission, 1.8 yesterday, likely lab error - was 1.7 last month - will continue to trend and monitor sx DM2 - Will restart home medications - SSI and Accuchecks ACHS HTN - Continue home meds - BP stable at this time HLD - Continue home meds GERD - Home meds Physical Deconditioning - Consulted PT/OT, CM - Concern that patient cannot adequately manage ADLs and CHF management on her own at home - will likely need placement Dispo: CM to discuss SNF vs. rehab with patient. Patient currently stable and in need of placement.
[2018-08-07] MEDS: busPIRone HCl 5 MG TAB PO SCH ×2 (08:50→20:34)
[2018-08-07] MEDS: Lisinopril 10 MG TAB PO SCH (08:50)
[2018-08-07] MEDS: Metoprolol Tartrate 50 MG TAB PO SCH ×3 (08:50→20:33)
[2018-08-07] MEDS: Aspirin Chewable 81 MG TAB PO SCH (08:50)
[2018-08-07] MEDS: Folic Acid 1 MG TAB PO SCH (08:50)
--- NOTE | 2018-08-07 11:41 | PRG ---
DATE OF SERVICE: 08/07/2018 Ms. Arboleda was admitted with an exacerbation of her heart failure and has recovered from this. She will likely need some rehab given her general debilitation with multiple hospitalizations in the last 6 months. We will ask Case Management to help us out with placement. Clinically, she has much improved and offers no new complaints this morning. Job ID: [id number]
[2018-08-07] MEDS: Vit A,C & E/Lutein/Minerals Tablet PO SCH (12:01)
[2018-08-07 16:21] LABS: Hemoglobin 12.7 g/dL (12.0-16.0); Platelet Count 207 thou/uL (130-400)
[2018-08-07] MEDS: Melatonin 3 MG TAB PO PRN (20:33)
[2018-08-07] MEDS: Atorvastatin Calcium 10 MG TAB PO SCH (20:33)
[2018-08-07] MEDS: Mirtazapine 30 MG TAB PO SCH (20:33)
[2018-08-07] MEDS: DULoxetine 60 MG CAP PO SCH (20:34)
[2018-08-07] MEDS: Acetaminophen 325 MG TAB PO PRN (20:34)
[2018-08-08 05:32] LABS: Anion Gap 13 mmol/L (10-20); BUN (Urea Nitrogen) 13 mg/dL (9.8-20.1); Calc. Creatinine Clearance 57 mL/min (70-130); Calcium 9.5 mg/dL (7.8-10.44); Carbon Dioxide 34 mmol/L (23-31); Chloride 96 mmol/L (98-107); Estimated GFR-MDRD 76; Glucose 140 mg/dL (83-110); Potassium 3.7 mmol/L (3.5-5.1); Sodium 139 mmol/L (136-145)
[2018-08-08] MEDS: Rivaroxaban 10 MG TAB PO SCH (05:52)
[2018-08-08] MEDS: Furosemide 40 MG/4 ML VIAL SLOW IVP SCH ×2 (05:54→13:40)
[2018-08-08] MEDS: Lisinopril 10 MG TAB PO SCH (09:09)
[2018-08-08] MEDS: busPIRone HCl 5 MG TAB PO SCH ×2 (09:09→21:50)
[2018-08-08] MEDS: Aspirin Chewable 81 MG TAB PO SCH (09:09)
[2018-08-08] MEDS: Folic Acid 1 MG TAB PO SCH (09:09)
[2018-08-08] MEDS: metFORMIN 500 MG TAB PO SCH (09:09)
[2018-08-08] MEDS: Metoprolol Tartrate 50 MG TAB PO SCH ×3 (09:10→21:50)
[2018-08-08] MEDS: Acetaminophen 325 MG TAB PO PRN ×2 (09:21→21:50)
[2018-08-08] MEDS ORDERED: diphenhydrAMINE 25 MG CAP PO PRN (11:45)
[2018-08-08] MEDS: Vit A,C & E/Lutein/Minerals Tablet PO SCH (11:46)
--- NOTE | 2018-08-08 11:51 | PDOC.FM ---
- Subjective Subjective: Patient doing well this AM. No significant overnight events. Patient states she did not sleep well last night. She states she has a headache this morning. She is breathing fine. Denies shortness of breath, chest pain, palpitations. - Objective MAR Reviewed: Yes Vital Signs & Weight: Vital Signs (12 hours) Temp Pulse Resp BP BP Pulse Ox 08/08/18 11:44 97.6 F 89 19 123/66 99 08/08/18 09:09 134/83 08/08/18 07:28 97.9 F 88 19 124/84 94 L 08/08/18 05:19 95 08/08/18 03:45 98 F 82 15 122/58 L 95 Weight Weight 59.194 kg I&O: 08/07/18 08/08/18 08/09/18 06:59 06:59 06:59 Intake Total 1020 665 Output Total 2350 2800 Balance -5510 -2135 Result Diagrams: 08/07/18 16:15 08/08/18 04:36 EKG Reviewed by me: Yes Radiology Reviewed by me: Yes Phys Exam - Physical Examination Constitutional: NAD HEENT: moist MMs Respiratory: no wheezing, clear to auscultation bilateral Cardiovascular: irregular 2/6 systolic murmur Gastrointestinal: soft, non-tender Musculoskeletal: no edema Neurological: non-focal Psychiatric: normal affect, A&O x 3 Skin: no rash, cap refill <2 seconds Dx/Plan (1) Acute and chronic respiratory failure with hypoxia Code(s): J96.21 - ACUTE AND CHRONIC RESPIRATORY FAILURE WITH HYPOXIA Status: Acute (2) Acute on chronic congestive heart failure Code(s): I50.9 - HEART FAILURE, UNSPECIFIED Status: Acute (3) Physical deconditioning Code(s): R53.81 - OTHER MALAISE Status: Acute (4) Atrial fibrillation Code(s): I48.91 - UNSPECIFIED ATRIAL FIBRILLATION Status: Chronic Qualifiers: (5) Chronic anemia Code(s): D64.9 - ANEMIA, UNSPECIFIED Status: Chronic (6) DM2 (diabetes mellitus, type 2) Status: Chronic (7) Depression Code(s): F32.9 - MAJOR DEPRESSIVE DISORDER, SINGLE EPISODE, UNSPECIFIED Status : Chronic (8) GERD (gastroesophageal reflux disease) Code(s): K21.9 - GASTRO-ESOPHAGEAL REFLUX DISEASE WITHOUT ESOPHAGITIS Status: Chronic (9) HLD (hyperlipidemia) Code(s): E78.5 - HYPERLIPIDEMIA, UNSPECIFIED Status: Chronic Qualifiers: (10) HTN (hypertension) Code(s): I10 - ESSENTIAL (PRIMARY) HYPERTENSION Status: Chronic Qualifiers: - Plan Plan: Acute on chronic combined CHF with Hypoxia: - Recent admission, 6 total in the last 5 months - BNP 2532, elevated from prior admission, CXR with pulm vasc thiago and edema - Continue supplemental O2 - Consulted CM regarding placement - IV lasix 40 mg BID, patient's home medication dose will need to be increased upon d/c - Strict I/Os, fluid restriction, HH incl low Na diet - Net I/O: - 4L at this time - Cardiology consulted, appreciate recs - back to baseline supplemental O2 requirement, 2 L NC A fib with RVR: - S/p lopressor, dilt push, and started on dilt gtt in ER - HR improved quickly, has been rate controlled on the floor - continue home xarelto - currently hemodynamically stable - Cardiology consulted, appreciate recs - home metoprolol increased from BID to TID Supratherapeutic INR - 4.2 on admission, 1.8 yesterday, likely lab error - was 1.7 last month - will continue to trend and monitor sx DM2 - Continue home medications - SSI and Accuchecks ACHS HTN - Continue home meds - BP stable at this time HLD - Continue home meds GERD - Home meds Physical Deconditioning - Consulted PT/OT, CM - Concern that patient cannot adequately manage ADLs and CHF management on her own at home Pulmonary fibrosis - Likely 2/2 amiodarone use - Contributing factor to pulmonary HTN and hypoxia - Continue O2 supplementation Dispo: Pending placement.
--- NOTE | 2018-08-08 11:52 | PRG ---
DATE OF SERVICE: 08/08/2018 Ms. Arboleda is awake and alert this morning, even cheerful. We are still awaiting placement, but clinically she is stable. Job ID: [id number]
[2018-08-08] MEDS ORDERED: Benzonatate 100 MG CAP PO PRN (21:27)
[2018-08-08] MEDS: Mirtazapine 30 MG TAB PO SCH (21:49)
[2018-08-08] MEDS: Melatonin 3 MG TAB PO PRN (21:49)
[2018-08-08] MEDS: DULoxetine 60 MG CAP PO SCH (21:50)
[2018-08-08] MEDS: Atorvastatin Calcium 10 MG TAB PO SCH (21:50)
[2018-08-09] MEDS: Rivaroxaban 10 MG TAB PO SCH (06:03)
[2018-08-09] MEDS ORDERED: Furosemide 40 MG TAB PO SCH (07:30)
[2018-08-09 07:31] LABS: Anion Gap 13 mmol/L (10-20); BUN (Urea Nitrogen) 13 mg/dL (9.8-20.1); Calc. Creatinine Clearance 59 mL/min (70-130); Calcium 9.2 mg/dL (7.8-10.44); Carbon Dioxide 34 mmol/L (23-31); Chloride 95 mmol/L (98-107); Estimated GFR-MDRD 71; Glucose 166 mg/dL (83-110); Potassium 3.5 mmol/L (3.5-5.1); Sodium 138 mmol/L (136-145)
[2018-08-09] MEDS: Aspirin Chewable 81 MG TAB PO SCH (08:31)
[2018-08-09] MEDS: metFORMIN 500 MG TAB PO SCH (08:31)
[2018-08-09] MEDS: Lisinopril 10 MG TAB PO SCH (08:32)
[2018-08-09] MEDS: Folic Acid 1 MG TAB PO SCH (08:32)
[2018-08-09] MEDS: Metoprolol Tartrate 50 MG TAB PO SCH ×2 (08:32→15:16)
[2018-08-09] MEDS: Acetaminophen 325 MG TAB PO PRN (08:33)
[2018-08-09] MEDS: busPIRone HCl 5 MG TAB PO SCH (08:33)
[2018-08-09 11:24] VITALS: TEMP 97.9
[2018-08-09] MEDS: Vit A,C & E/Lutein/Minerals Tablet PO SCH (11:24)
--- NOTE | 2018-08-09 12:33 | PDOC.FM ---
- Subjective Subjective: Patient doing well. No significant overnight events. Patient stable. Awaiting placement. Denies N/V, chest pain, or shortness of breath. - Objective MAR Reviewed: Yes Vital Signs & Weight: Vital Signs (12 hours) Temp Pulse Resp BP BP Pulse Ox 08/09/18 11:19 97.9 F 88 13 123/76 92 L 08/09/18 07:31 98.9 F 109 H 15 135/89 95 08/09/18 05:31 95 08/09/18 05:00 98.2 F 95 20 137/75 93 L Weight Weight 65.062 kg I&O: 08/08/18 08/09/18 08/10/18 06:59 06:59 06:59 Intake Total 665 1420 Output Total 2800 2200 Balance -2135 -780 Result Diagrams: 08/07/18 16:15 08/09/18 06:35 EKG Reviewed by me: Yes Radiology Reviewed by me: Yes Phys Exam - Physical Examination Constitutional: NAD HEENT: moist MMs Respiratory: clear to auscultation bilateral Cardiovascular: irregular Gastrointestinal: soft, non-tender Musculoskeletal: pulses present Neurological: non-focal Psychiatric: normal affect, A&O x 3 Skin: cap refill <2 seconds Dx/Plan (1) Acute and chronic respiratory failure with hypoxia Code(s): J96.21 - ACUTE AND CHRONIC RESPIRATORY FAILURE WITH HYPOXIA Status: Acute (2) Acute on chronic congestive heart failure Code(s): I50.9 - HEART FAILURE, UNSPECIFIED Status: Acute (3) Physical deconditioning Code(s): R53.81 - OTHER MALAISE Status: Acute (4) Atrial fibrillation Code(s): I48.91 - UNSPECIFIED ATRIAL FIBRILLATION Status: Chronic Qualifiers: (5) Chronic anemia Code(s): D64.9 - ANEMIA, UNSPECIFIED Status: Chronic (6) DM2 (diabetes mellitus, type 2) Status: Chronic (7) Depression Code(s): F32.9 - MAJOR DEPRESSIVE DISORDER, SINGLE EPISODE, UNSPECIFIED Status : Chronic (8) GERD (gastroesophageal reflux disease) Code(s): K21.9 - GASTRO-ESOPHAGEAL REFLUX DISEASE WITHOUT ESOPHAGITIS Status: Chronic (9) HLD (hyperlipidemia) Code(s): E78.5 - HYPERLIPIDEMIA, UNSPECIFIED Status: Chronic Qualifiers: (10) HTN (hypertension) Code(s): I10 - ESSENTIAL (PRIMARY) HYPERTENSION Status: Chronic Qualifiers: - Plan Plan: Acute on chronic combined CHF with Hypoxia, resolved - Back to baseline 2L O2 - Stable for d/c - Plan for placement at SNF facility given recurrent admissions A fib with RVR, resolved - Metoprolo increased to TID Supratherapeutic INR, resolved DM2 - Continue home medications HTN - Continue home meds - BP stable at this time HLD - Continue home meds GERD - Home meds Physical Deconditioning - Consulted PT/OT, CM - Concern that patient cannot adequately manage ADLs and CHF management on her own at home Pulmonary fibrosis - Likely 2/2 amiodarone use - Contributing factor to pulmonary HTN and hypoxia - Continue O2 supplementation Dispo: Pending placement. Addendum - Attending - Attending Attestation Date/Time: 08/09/18 6414 I personally evaluated the patient and discussed the management with Dr. Rand I agree with the History, Examination, Assessment and Plan documented above with any addition or exceptions noted below. Patient is willing to go to [facility] for continued recovery near [place], [place] . Patient worked at this [employer] in the past. Patient states her Daughter checked to see if a bed is available. Will continue to coordinate care.
[2018-08-09 15:16] VITALS: BP 121/64
[2018-08-09 16:51] LABS: Hemoglobin 13.5 g/dL (12.0-16.0); Platelet Count 235 thou/uL (130-400)
--- NOTE | 2018-08-10 12:54 | DIS ---
DATE OF ADMISSION: 08/05/2018 DATE OF DISCHARGE: 08/09/2018 ADMITTING ATTENDING: Long Patten MD RESIDENT: Julieta Monreal DO PROCEDURES: 1. Chest x-ray showed decompensated congestive heart failure. 2. Echocardiogram showed ejection fraction visually estimated at 40% to 45% with moderately dilated left atrium, markedly enlarged right atrium, markedly enlarged right ventricle, left ventricle size was normal, aortic valve leaflets thickened, [id number] aortic stenosis, jogv-wy-[id number] mitral regurgitation, apyyqdkh-dl-yxyidm tricuspid regurgitation, right ventricular systolic pressure of 70 mmHg consistent with severe pulmonary hypertension. The IVC was also noted to be dilated. CONSULTATIONS: Dr. Sumner with Cardiology. PRIMARY DIAGNOSES: 1. Atrial fibrillation with rapid ventricular response. 2. Acute on chronic combined congestive heart failure. 3. Acute hypoxic respiratory failure. 4. Diabetes mellitus, type 2. 5. Hypertension. 6. Hyperlipidemia. 7. Gastroesophageal reflux disease. 8. Physical deconditioning. 9. Pulmonary fibrosis, likely secondary to past amiodarone use. 10. Chronic anemia. 11. Depression. DISCHARGE MEDICATIONS: 1. Buspirone 5 mg p.o. b.i.d. 2. Vitamin D3 of 1000 units p.o. daily. 3. Cymbalta 60 mg p.o. at bedtime. 4. Ferrous sulfate 65 mg p.o. daily. 5. Gabapentin 300 mg p.o. t.i.d. 6. Metformin 1000 mg p.o. daily. 7. Mirtazapine 30 mg p.o. at bedtime. 8. Pantoprazole 40 mg p.o. daily. 9. Potassium chloride 20 mEq p.o. b.i.d. with meals. 10. Xarelto 15 mg p.o. daily. 11. Vitamin A, C, E, zinc, selenium one tab p.o. daily. 12. Acetaminophen 650 mg p.o. q.4 hours p.r.n. 13. Aspirin 81 mg p.o. daily. 14. Atorvastatin 10 mg p.o. at bedtime. 15. Benzonatate 100 mg p.o. t.i.d. p.r.n. 16. Folic acid 1 mg p.o. daily. 17. Furosemide 40 mg p.o. daily. 18. Lisinopril 10 mg p.o. daily. 19. Melatonin 6 mg p.o. at bedtime. 20. Metoprolol tartrate 50 mg p.o. t.i.d. 21. Senokot S 2 tabs p.o. b.i.d. p.r.n. HISTORY OF PRESENT ILLNESS: This is a michael 78-year-old female with past medical history of congestive heart failure, atrial fibrillation, coronary artery disease, hypertension, hyperlipidemia, who was transferred from [facility] with 1-day history of shortness of breath. The patient was discharged the previous day after hospitalization for acute on chronic congestive heart failure exacerbation. The patient states that she called EMS the morning of admission due to being dyspneic. Upon arrival, the patient's O2 sats were in the low 80s and heart rate was in the 130s to 140s. The patient is on O2 supplementation chronically at home with 2 L per nasal cannula. However, she did require increased oxygen requirement on presentation. The patient was given 40 mEq of IV Lasix in the outside ED. She was also given Lopressor and diltiazem push and started on a diltiazem drip in [facility] as well. During the patient's recent hospitalization, she refused placement in long term for closer monitoring and CHF management. In the emergency department on admission, the patient seemed more understanding of the need for closer monitoring. HOSPITAL COURSE: The patient's hospital course was relatively uncomplicated. Her AFib with RVR responded well to diltiazem drip and the patient was eventually transferred to her home medications with metoprolol 50 mg being increased to t.i.d. from b.i.d. per Cardiology. The patient's echo was relatively unchanged from prior echo with ejection fraction of 40% to 45%. The patient was noted to have severe pulmonary hypertension and thus will need to remain on her oxygen indefinitely. The patient's pulmonary hypertension may be related to past amiodarone use as dictated by Dr. Sumner. The patient responded well to diuresis and was able to return to all her p.o. medication with a slight increase in her Lasix. The patient has had several admissions, 6 total in the last 5 months. It is unclear as to why she is having difficulty with CHF management as an outpatient. She states she is compliant. She initially wanted to go home, but after further discussion, it was discussed that short-term nursing facility would be ideal to prevent readmission to the hospital and to provide the patient with the help that she needs as an outpatient. The patient was eventually agreeable to short-term nursing facility and we were able to facilitate that transfer. The patient remained hemodynamically stable for several days prior to discharge to SNF Facility. The patient is noted to have diabetes at baseline. Her blood glucose was not ideally controlled during the hospitalization. Metformin was restarted several days into her stay. She would benefit from further titration of medications as an outpatient. DISPOSITION: Guarded. DISCHARGE INSTRUCTIONS: 1. Location: SNF Facility at [facility]. 2. Activity: Cardiopulmonary limitations. 3. Diet: Heart healthy, fluid restriction of 1500 mL, low sodium, diabetic diet. 4. Followup: The patient is to follow up per the recommendations of SNF physician. Ideally, the patient will follow up with her primary care physician, Dr. Harvey, [facility] within 7 days of discharge from SNF Facility. Job ID: [id number]
== END 2018-08-09 17:42 | DRG 291 ==
LOC: ERS 10:12 → 2NO 13:56
PROVIDERS: ADMIT Family Medicine; ATTEND Family Medicine
DX: I11.0 Hypertensive heart disease with heart failure (principal); J96.21 Acute and chronic respiratory failure with hypoxia; I50.43 Acute on chronic combined systolic (congestive) and diastolic (congestive) heart failure; Z66 Do not resuscitate; I48.2 Chronic atrial fibrillation; D64.9 Anemia, unspecified; E11.9 Type 2 diabetes mellitus without complications; F32.9 Major depressive disorder, single episode, unspecified; K21.9 Gastro-esophageal reflux disease without esophagitis; J70.3 Chronic drug-induced interstitial lung disorders; T46.2X5A Adverse effect of other antidysrhythmic drugs, initial encounter; I25.10 Atherosclerotic heart disease of native coronary artery without angina pectoris; I27.20 Pulmonary hypertension, unspecified; I35.0 Nonrheumatic aortic (valve) stenosis; E78.00 Pure hypercholesterolemia, unspecified; Z86.73 Personal history of transient ischemic attack (TIA), and cerebral infarction without residual deficits; Z79.82 Long term (current) use of aspirin; Z79.84 Long term (current) use of oral hypoglycemic drugs; Z79.01 Long term (current) use of anticoagulants; Z90.49 Acquired absence of other specified parts of digestive tract; Z90.710 Acquired absence of both cervix and uterus; Z98.49 Cataract extraction status, unspecified eye; Z88.0 Allergy status to penicillin; Z88.2 Allergy status to sulfonamides; Z88.1 Allergy status to other antibiotic agents; Z88.8 Allergy status to other drugs, medicaments and biological substances; Z79.899 Other long term (current) drug therapy
CPT/HCPCS: 36415; 36416; 71045; 72170; 80048; 80053; 82565; 83735; 83880; 84443; 85014; 85018; 85025; 85049; 93005; 93306; 93798; 96374; 96376; G0378; J1940; J2405; J3490; Q0163